=== PATIENT | male | born 1955 | race Caucasian/White ===

== ENCOUNTER 2020-01-03 11:51 | Outpatient (CLI) | payer BC, SELFPAY ==
--- NOTE | ~2020-01-03 | XR_ITS ---
EXAMINATION: XR chest 2V DATE: 01/03/2020 12:20 INDICATION: Shortness of breath. TECHNIQUE: Frontal and lateral views of the chest were obtained. COMPARISON: Chest 2 views 08/12/2018, CT abdomen and pelvis 08/16/2018 FINDINGS: The chest demonstrates clear lungs without pneumonia, pleural effusion, or pneumothorax. Th e heart size is normal. There is a suture anchor in right humeral head. IMPRESSION: 1. No acute cardiopulmonary disease. Reviewed, dictated and finalized at location A.
[2020-01-03 12:35] LABS: Alanine Aminotransferase 42 U/L (4-50); Albumin Level 4.4 g/dL (3.5-5.1); Alkaline Phosphatase 145 U/L (38-126); Anion Gap 9 mmol/L (8-16); Aspartate Amino Transferase 30 U/L (17-59); Bilirubin,Total 0.4 mg/dL (0.2-1.3); Blood Urea Nitrogen 12 mg/dL (9-20); Calcium 9.3 mg/dL (8.4-10.2); Carbon Dioxide 29 mmol/L (22-30); Chloride 104 mmol/L (98-107); Estimated Glomerular Filt Rate > 60; Glucose 95 mg/dL (75-110); Potassium 4.3 mmol/L (3.4-5.0); Sodium 142 mmol/L (137-145)
== END 2020-01-03 11:52 | disposition home or self-care (01) ==
PROVIDERS: PCP Internal Medicine; Visit Provider Internal Medicine
DX: R00.2 Palpitations (principal); R06.02 Shortness of breath
CPT/HCPCS: 36415; 71046; 80053; 84443

== ENCOUNTER 2020-01-12 15:25 | Outpatient (CLI) | payer BC, SELFPAY ==
--- NOTE | ~2020-01-12 | MR_ITS ---
EXAMINATION: MR brain/brain stem wo/w con EXAM DATE: 01/12/2020 16:26 INDICATION: Several lower episode of visual loss. TECHNIQUE: Magnetic resonance imaging (MRI) of the brain/brain stem obtained without contrast. Sagit gallo T1, axial diffusion, gradient echo (T2*), T1, T2, FLAIR sequences obtained. Patient was then inj ected with 20 cc intravenous Multihance contrast. Axial and coronal postcontrast T1 weighted sequence s obtained. There is no prior study for comparison. FINDINGS: There are no areas of restricted diffusion to suggest acute infarction. There is no acute hemorrhage seen on the T2*, a hemosiderin sensitive sequence. No intraparenchymal brain mass. The ve ntricles are normal in size. There are no extra-axial collections. Flow voids are seen in the cereb ral arteries on the T2-weighted sequences consistent with their expected patency. The orbits are unr emarkable. Soft tissue is unremarkable. There are no areas of abnormal enhancement on the postcont rast images. IMPRESSION: 1. Unremarkable brain MRI examination. Reviewed, dictated and finalized at location A.
== END 2020-01-12 15:26 | disposition home or self-care (01) ==
PROVIDERS: PCP Internal Medicine; Visit Provider Internal Medicine
DX: H54.7 Unspecified visual loss (principal)
CPT/HCPCS: 70553; A9577

== ENCOUNTER 2020-01-22 12:40 | Outpatient (CLI) | payer BC, SELFPAY ==
--- NOTE | 2020-01-22 12:45 | ECHO_ITS ---
Patient Info Name: Basilio Jaimse Age: 64 years : 1955 Gender: Male Ht: 74 in Wt: 225 lbs BSA: 2.33 m2 HR: 70 bpm BP: 141 / 87 mmHg Heart Rhythm: Sinus Rhythm Technical Quality: Good Exam Date: 01/22/2020 1:15 PM Exam Location: [facility] Pulmonary Patient Status: Outpatient Admit Date: 01/22/2020 Staff Ordering Physician: Alli Bae DO Air Turning Machine Feeder: Solomon Veliz RDCS Attending Provider: Alli Bae DO Referring Physician: Kathia CORDERO; Exam Type: CA echo doppler color flow Study Info Indications R00.2 - Palpitations Complete two-dimensional, color flow and Doppler transthoracic echocardiogram is performed. Strain analysis performed. History/Risk Factors Palpitations. Summary 1. Complete two-dimensional, color flow and Doppler transthoracic echocardiogram is performed. 2. Left ventricular chamber dimension is normal. 3. Left ventricular systolic function is normal, estimated at 60-65%. 4. The left ventricular diastolic function is grade I diastolic dysfunction. 5. E/e' 8 is minimally elevated. 6. Global longitudinal strain is mildly abnormal at -16.6%. Left Ventricle E/e' 8 is minimally elevated. Global longitudinal strain is mildly abnormal at -16.6%. Left ventricular chamber dimension is normal. Left ventricular systolic function is normal, estimated at 60-65%. The left ventricular diastolic function is grade I diastolic dysfunction. Right Ventricle Right ventricular chamber dimension is normal. Right ventricular systolic function is normal. Left Atria Left atrial chamber dimension is normal. Right Atria Right atrial chamber dimension is normal. Aortic Valve The aortic valve is trileaflet. There is no aortic valve stenosis. There is no aortic valve regurgitation. Pulmonic Valve There is no pulmonic regurgitation. Mitral Valve There is no mitral valve stenosis. There is no mitral valve regurgitation. Tricuspid Valve There is no tricuspid valve regurgitation. Pericardium/Pleural There is no pericardial effusion. Inferior Vena Cava Normal inferior vena cava with >50% collapse upon inspiration consistent with normal right atrial pressure, 5 mmHg. Aorta The aortic root size at the sinus of Valsalva is normal. Left Ventricular Outflow Tract Name Value Normal LVOT 2D LVOT Diameter 2.0 cm LVOT Doppler LVOT Peak Gradient 4 mmHg LVOT Mean Gradient 2 mmHg LVOT VTI 20 cm LVOT VTI/AV VTI Ratio 0.8 LVOT Stroke Volume 62 ml LVOT CO 4.5 l/min LVOT CI 1.9 l/min/m2 Mitral Valve Name Value Normal MV Doppler MV Decel [place] 312 cm/s2 MV PHT
--- NOTE | 2020-01-25 12:38 | WPDHOLTEREM ---
Holter/Event Monitor Holter/Event Monitor Date of procedure: 01/22/20 Procedure Type: 48 hour holter monitor Indications: Palpitations Conclusion: 1. 48 hour holter monitor on 01/22/20. 2. Underlying rhythm is sinus rhythm. HR range 52-130 bpm; average HR 75 bpm. 3. There are 31 premature supraventricular complexes and 6 supraventricular couplets. No supraventricular tachycardia. 4. No premature ventricular complexes. No ventricular tachycardia. 5. No sinoatrial or atrioventricular blocks. No significant pauses greater than 2 seconds. 6. No symptoms available for correlation.
== END 2020-01-22 12:41 | disposition home or self-care (01) ==
LOC: ANHCARD 12:41
PROVIDERS: PCP Internal Medicine; Visit Provider Internal Medicine
DX: R00.2 Palpitations (principal)
CPT/HCPCS: 93225; 93226; 93306

== ENCOUNTER → 2021-04-18 11:48 | Outpatient (CLI) | payer OTHER, SELFPAY ==
--- NOTE | ~2021-04-18 | XR_ITS ---
EXAMINATION: XR knee LT 3V DATE: 04/18/2021 12:08 INDICATION: Left knee pain. TECHNIQUE: 3 views of left knee including standing views were obtained. COMPARISON: None. FINDINGS: Bone alignment is normal. No fracture. Joint spaces are well maintained. There is no knee j oint effusion. IMPRESSION: 1. Normal left knee. Reviewed, dictated and finalized at location B. POLLUTION INSPECTOR IMPRESSION: 1. Normal left knee.
== END ==
PROVIDERS: PCP Internal Medicine; Visit Provider Nurse Practitioner
DX: M25.562 Pain in left knee (principal)
CPT/HCPCS: 73562

== ENCOUNTER 2021-06-16 09:44 | Outpatient (CLI) | payer OTHER, SELFPAY ==
--- NOTE | ~2021-06-16 | NM_ITS ---
EXAMINATION: NM stress w perf spect multi DATE: 06/16/2021 12:29 INDICATION: Abnormal electrocardiogram. Primary hypertension. TECHNIQUE: Rest images were obtained following intravenous administration of 9 mCi Tc99m tetrofosmin (Myoview). The patient performed an exercise activity. At peak exercise, 26.7 mCi Tc99m tetrofosmin ( Myoview) was administered intravenously, and stress images were obtained. Data was reconstructed into short axis and horizontal and vertical long axis SPECT images. Gated SPECT images were also obtained . COMPARISON: None. FINDINGS: There is no definite reversible or fixed perfusion abnormality to suggest ischemia or infar ction. There is no segmental wall motion abnormality. Left ventricular ejection fraction measures 6 7%. IMPRESSION: 1. No definite ischemia or infarct. 2. Normal left ventricular ejection fraction measuring 67%. Reviewed, dictated and finalized at location A.
--- NOTE | 2021-06-16 10:15 | EST_ITS ---
Patient Info Name: Basilio Jaimes Age: 66 years : 1955 Gender: Male Ht: 74 in Wt: 220 lbs BSA: 2.30 m2 Exam Date: 06/16/2021 11:27 AM Exam Location: [facility] Stress Patient Status: Outpatient Admit Date: 06/16/2021 Staff Ordering Physician: Alli Bae DO Attending Provider: Alli Bae DO Exercise Technologist: Brandon Galarza RDCS, RT Exercise Physician: Jose Savage DO Exam Type: CA stress test treadmill w NM Study Info A nuclear stress test was performed. Summary 1. 1. Negative Artemio exercise stress test for ischemic ST changes by ECG criteria. 2. 2. Reduced functional capacity, achieving 7 METs of workload. 3. 3. Baseline hypertension. 4. 4. Appropriate HR response to exercise. 5. 5. Appropriate HR recovery at 1 minute post exercise. 6. 6. Nuclear scan to follow and will be reported separately. Please correlate with it. 7. 7. Patient informed of the above results. Protocol: Artemio Stress ECG Details Stage: REST Duration (min): 1 min : 1 sec Speed (mph): 0.0 Grade (%): 0 HR (bpm): 74 SBP (mmHg): 141 DBP (mmHg): 77 METS: --- Stage: REST Duration (min): 5 min : 19 sec Speed (mph): 0.0 Grade (%): 0 HR (bpm): 86 SBP (mmHg): 141 DBP (mmHg): 77 METS: --- Stage: STAGE 1 Duration (min): 1 min : 0 sec Speed (mph): 1.7 Grade (%): 10 HR (bpm): 110 SBP (mmHg): 141 DBP (mmHg): 77 METS: --- Stage: STAGE 1 Duration (min): 2 min : 0 sec Speed (mph): 1.7 Grade (%): 10 HR (bpm): 121 SBP (mmHg): 141 DBP (mmHg): 77 METS: --- Stage: STAGE 1 Duration (min): 3 min : 0 sec Speed (mph): 1.7 Grade (%): 10 HR (bpm): 126 SBP (mmHg): 171 DBP (mmHg): 70 METS: --- Stage: STAGE 2 Duration (min): 1 min : 0 sec Speed (mph): 2.5 Grade (%): 12 HR (bpm): 132 SBP (mmHg): 171 DBP (mmHg): 70 METS: --- Stage: STAGE 2 Duration (min): 2 min : 0 sec Speed (mph): 2.5 Grade (%): 12 HR (bpm): 140 SBP (mmHg): 176 DBP (mmHg): 65 METS: --- Stage: STAGE 2 Duration (min): 2 min : 59 sec Speed (mph): 3.4 Grade (%): 14 HR (bpm): 143 SBP (mmHg): 176 DBP (mmHg): 65 METS: --- Stage: RECOVERY Duration (min): 1 min : 0 sec Speed (mph): 0.0 Grade (%): 0 HR (bpm): 127 SBP (mmHg): 164 DBP (mmHg): 64 METS: --- Stage: RECOVERY Duration (min): 2 min : 0 sec Speed (mph): 0.0 Grade (%): 0 HR (bpm): 111 SBP (mmHg): 179 DBP (mmHg): 54 METS: --- Stage: RECOVERY Duration (min): 3 min : 0 sec Speed (mph): 0.0 Grade (%): 0 HR (bpm): 100 SBP (mmHg): 142 DBP (mmHg): 66 METS: --- Stage: RECOVERY Duration (min): 3 min : 13 sec Speed (mph): 0.0 Grade (%): 0 HR (bpm): 100 SBP (mmHg): 142 DBP (mmHg): 66 METS: --- Rest HR: 86 bpm Peak HR: 144 bpm Rest Sys BP: 141 mmHg Pea
== END 2021-06-16 09:45 | disposition home or self-care (01) ==
PROVIDERS: PCP Internal Medicine; Visit Provider Internal Medicine
DX: R06.00 Dyspnea, unspecified (principal); I10 Essential (primary) hypertension; Z82.49 Family history of ischemic heart disease and other diseases of the circulatory system; Z51.81 Encounter for therapeutic drug level monitoring; Z79.899 Other long term (current) drug therapy; I45.10 Unspecified right bundle-branch block
CPT/HCPCS: 78452; 93017; A9502

== ENCOUNTER → 2021-07-03 06:59 | Outpatient (CLI) | payer OTHER, SELFPAY ==
--- NOTE | ~2021-07-03 | MR_ITS ---
EXAMINATION: MR knee LT wo con DATE: 07/03/2021 07:27 INDICATION: Left knee pain TECHNIQUE: Magnetic resonance imaging (MRI) of the left knee was performed without intravenous contra st. Sequences included coronal PD-weighted FSE, coronal PD-weighted FS FSE, sagittal T2-weighted FSE , sagittal PD-weighted FS FSE and axial PD weighted fat saturated FSE. COMPARISON: Left knee radiographs dated 04/18/2021 FINDINGS: Medial compartment: There is distortion of the morphology of the body of the medial meniscus related to a tear of indeter minate morphology with displacement of a small meniscal flap into the inferior gutter below the level of the tibial plateau. There is an additional small horizontal tear plane at the inner third of the posterior horn which extends to the superior articular surface near the free edge. Partial-thickness chondral ulceration along the lateral margin of the anterior to central weightbearing medial femoral condyle with small region of cortical irregularity with minimal focal subarticular edema-like marrow signal change along the lateral aspect of the central weightbearing medial femoral condyle. Partial-t hickness cartilage loss with smooth chondral surface and mild underlying marrow edema-like signal naresh nge at the posterolateral aspect of the lateral tibial plateau. Lateral compartment: Tiny radial tear versus focal fraying along the inner free edge at the posterior horn of the lateral meniscus. Articular cartilage is normal. Patellofemoral compartment: Articular cartilage is normal. Ligaments and tendons: Anterior and posterior cruciate ligaments are normal. The medial collateral ligament and fibular jacey ateral ligament complex are normal. The extensor mechanism is normal. The visualized medial and later al hamstring tendons as well as the iliotibial band are normal. Fluid: Minimal joint effusion at the suprapatellar pouch. No loose osteochondral bodies identified. Small Ba ker's cyst. Osseous/other: A couple small low signal intensity sclerotic bone is at the medial and lateral femoral condyles. No fracture or pathologic marrow replacing process. Edema at the superficial suprapatellar fat pad which can be seen with fat pad impingement syndrome. IMPRESSION: 1. Medial meniscal tear with displacement of a small meniscal flap at the inferior periphery of the m eniscal body. 2. Tiny radial tear versus fraying along the free edge of the posterior horn of the lateral meniscus. 3. 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 4. Edema in the superficial suprapatellar fat pad consistent with fat pad impingement syndrome. 4. Small Aldridge's cyst. Reviewed, dictated and finalized at location A. IMPRESSION: 1. Medial meniscal tear with displacement of a small meniscal flap at the infer ior periphery of the meniscal body. 2. Tiny radial tear versus fraying along the free edge of the posterior horn of the lateral meniscus. 3. 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 4. Edema in the superficial suprapatellar fat pad consistent with fat pad impin gement syndrome. 4. Small Aldridge's cyst.
== END ==
PROVIDERS: PCP Internal Medicine; Visit Provider Orthopaedic Surgery
DX: M25.562 Pain in left knee (principal); G89.29 Other chronic pain; S83.242A Other tear of medial meniscus, current injury, left knee, initial encounter; M17.12 Unilateral primary osteoarthritis, left knee; M79.89 Other specified soft tissue disorders; M71.22 Synovial cyst of popliteal space [Baker], left knee
CPT/HCPCS: 73721

== ENCOUNTER 2021-08-04 01:59 | Day surgery (SDC) | payer OTHER, SELFPAY ==
[2021-07-24 10:26] VITALS: BMI 29.0
--- NOTE | 2021-07-24 10:33 | PC.NURSE ---
Report to the Outpatient Waiting Room, entrance under the green pavilion located off [facility], at time 1200 on date 08/04/21. OR Time: 1400. - You and your visitor will be asked a series of questions to screen for COVID 19 for your protection. - A mask is required within the hospital. One visitor will be allowed to accompany the patient into the hospital. Patients visitor will be instructed to remain with patient at all times or leave the building. We will allow the visitor to come back to the postoperative area when patient is ready. Preoperative COVID Testing Requirements: No COVID Test needed if: (proof is required; if not received patient will have Rapid Test prior to entry) - Patient has received COVID Vaccine at least 14 days prior to procedure date or - Patient has positive COVID test result within last 90 days of surgery date. COVID Test needed if above criteria is not met Patients may have clear liquids (water, carbonated beverages, clear teas, apple juice) until 3 hours prior to surgery with a maximum of 20 ounces. - No food from midnight until time of surgery Take the following medications with a SIP of water the morning of surgery: BUSPIRONE, LAMOTRIGINE, MIRTAZAPINE, RISPERIDONE Medications to discontinue per physician: VITAMINS Date to take last dose: 07/31/21 Please no make-up, nail sami, hairspray, perfume, deodorant, or body powder the day of surgery. No jewelry (including any body piercings) or valuables the day of surgery, leave them at home. Please take a shower or bath the night before, or the morning of, surgery with an antibacterial soap. Wear comfortable, loose fitting clothing. - Jewelry must be removed prior to entering the operating room. Rings and piercings that are not removed may be cut off. - The hospital will not accept responsibility for valuables. - Please leave all valuables, including medications, at home the day of surgery. If you are going home after surgery, a licensed taxi truck driver must drive you home. - NO public transportation without another adult. - We recommend that an adult stay with you for 24 hours following discharge. - We also recommend that you do not drive, make important decision, drink alcoholic beverages, or take any drugs that were not prescribed by your health care provider for at least 24 hours after your discharge time. Follow any additional instructions given to you from your surgeon. Telephone instructions given to LUIZA GRIFFITHS and asked if any additional questions and then verbalized understanding. Patient advised to call surgeon office or pre surgery nurse liaison [phone] if any additional questions.
--- NOTE | 2021-08-03 08:19 | WPDANESEPPF ---
Anes - Initial Pre Proc Eval Procedure: Operation Date: 08/04/21 10:30 Proposed Procedures p Left Knee Arthroscopy with Meniscectomy - Phil Nash MD Date/Time: 08/03/21 08:19 Surgeon: Phil Nash MD Pre Op Diagnosis: left medial meniscal tear Patient Data Age: 66 Gender: M Height: 1.85 m Weight: 99.79 kg Allergies Allergy/AdvReac Type Severity Reaction Status Date / Time No Known Allergies Allergy Unknown Verified 08/04/21 08:47 Home Medications Medication Instructions Recorded Confirmed Type methylphenidate HCl 20 mg tablet 20 mg PO DAILY 05/18/19 08/04/21 History mirtazapine 30 mg tablet 30 mg PO DAILY 05/18/19 08/04/21 History buspirone 7.5 mg tablet 7.5 mg PO BID 01/03/20 08/04/21 History lamotrigine 200 mg tablet 200 mg PO BID 01/03/20 08/04/21 History risperidone 2 mg tablet 2 mg PO DAILY 01/03/20 08/04/21 History multivit with minerals-folic 1 tablet PO DAILY 04/18/21 08/04/21 History acid-lycopene 0.4 mg-600 mcg tablet atorvastatin 20 mg tablet 20 mg PO DAILY #30 tablet 05/26/21 08/04/21 Rx Patient hx anesthesia problems: none Family hx anesthesia problems: none Results Review: All pre-operative results and documents have been reviewed as part of the pre-operative evaluation. [facility] Past Medical History Medical History (Updated 08/03/21 @ 08:20 by Kunal Welch MD) Chronic kidney disease, stage III (moderate) Dyspnea Essential hypertension FLAKITO (obstructive sleep apnea) Overweight (BMI 25.0-29.9) Pure hypercholesterolemia Tear of medial meniscus of left knee Surgical History Surgical History H/O repair of rotator cuff right shoulder scope - Mary History of back surgery Family History Family History Father Depression Family history of alcoholism Family history of heart disease in male family member before age 55, Onset Age: 60 Patient's father is Family history of cardiovascular disease, Onset Age: 60 Sibling Depression Asthma Family history of rheumatoid arthritis Patient's sister is in good health Patient's sister is Mother Family history of malignant neoplasm of breast in first degree relative Family history of heart disease in male family member before age 55 Family history of malignant neoplasm of breast Social History Social History Smoking status: Never smoker Second hand tobacco smoke exposure: No Alcohol intake: never Substance use: never Substance use type: does not use Living arrangements: with family Gender identity (if verbalized by the patient): Male Spiritual care concerns: No Anes - Eval Final PreProcedure Day of Procedure 08/03/21 08:19 Patient weight: overweight Heart: regular rate and rhythm Lungs: clear to auscultation and normal air movement Airway: Mallampati scale class II Neurological: alert and oriented Last oral intake: >/= 8 hours ASA classification: III Emergent: no Anesthetic plan: proceed Anesthesia type and monitoring: general LMA Results Review: All pre-operative results and documents have been reviewed as part of the pre-operative evaluation. Informed Consent: The patient's anesthetic plan and its attendant risks and benefits were discussed with the patient/family/POA. Questions were solicited and answers provided to the satisfaction of the patient/family/POA.
[2021-08-04] VITALS (8 sets, daily range): BP systolic 133–154; BP diastolic 82–91; PULSE 72–87; RESP 12–17; TEMP 36.3; O2SAT 97–100
[2021-08-04] MEDS: LACTATED RINGERS 1,000 ML 30 ML IV CONT (09:35)
[2021-08-04] MEDS: KETOROLAC 15 MG/ML VIAL (*BKC) IV PUSH (09:36)
[2021-08-04] MEDS: ACETAMINOPHEN 500 MG TABLET 1000 MG PO (09:36)
--- NOTE | 2021-08-04 10:04 | WPDHPUPDATE1 ---
History and Physical Update Update Date/Time: 08/04/21 10:04 History and Physical has been reviewed, including an updated exam of the patient. There are NO changes in the patient's condition. Risks, benefits, and alternatives have been discussed and questions answered. Patient agrees to proceed with procedure.
[2021-08-04] MEDS: ceFAZolin 2 GM/D5W 50 ML 2 GM/50 ML BAG IVPB (10:25)
--- NOTE | 2021-08-04 11:29 | W.PM.PROC2 ---
Procedure Note - Detailed Date of Procedure 08/04/21 Pre-op Diagnosis left medial meniscal tear Post-op Diagnosis Same Procedure Performed Left knee arthroscopy, partial medial meniscectomy Surgeon Phil Nash MD Anesthesia General Description of Procedure The patient was identified and proper site identified and he was taken to the operating room, transferred to the OR table placing her supine taking care to pad the torso and extremities. After general anesthetic induction and intubation, a nonsterile tourniquet was placed high on the left thigh but was not inflated. The left lower extremity was positioned, prepped and draped in usual sterile fashion. 10 cc of 1% lidocaine was injected into the subcutaneous tissue in the area of the portals at start of the procedure, and an additional 10 at the end. The portals were established and the arthroscopy was carried out. Articular cartilage in the anterior compartment showed minimal fraying and fibrillation. Laterally the articular cartilage was in good shape. Minimal fraying at the apex of the lateral meniscus. Anterior posterior cruciate ligaments were in continuity. Pouch and gutters were sensory clear. Medially there was complex tearing of the medial meniscus from the posterior horn in the midbody as well as areas of grade two and three cartilage deterioration the posterior portion of the medial femoral condyle. The loose fibrillated cartilage of the joint surface was gently debrided with the shaver. Meniscus was contoured back to a stable rim with basket forceps and a shaver. Arthrocare Wand was used for hemostasis. The knee was flushed with a copious amount of arthroscopic fluid and equipment was removed. Portals were closed with three O nylon suture and a sterile dressing was applied. He tolerated the procedure well, was awakened, extubated and taken to recovery area in stable condition. There were no known intraoperative complications. Estimated blood loss was negligible; he received perioperative antibiotics. Estimated Blood Loss 5 Tourniquet Time 0 Drains No Packing No Pathology None sent Complications No immediate complications Condition Stable Disposition PACU
== END 2021-08-04 13:00 | disposition home or self-care (01) ==
PROVIDERS: PCP Internal Medicine; Visit Provider Orthopaedic Surgery
PROC: (CPT 29870; principal; 2021-08-04 10:30)
DX: M23.222 Derangement of posterior horn of medial meniscus due to old tear or injury, left knee (principal); I12.9 Hypertensive chronic kidney disease with stage 1 through stage 4 chronic kidney disease, or unspecified chronic kidney disease; N18.30 Chronic kidney disease, stage 3 unspecified; G47.33 Obstructive sleep apnea (adult) (pediatric); E78.00 Pure hypercholesterolemia, unspecified
CPT/HCPCS: 29881; A9270; J0690; J1100; J1885; J2250; J2370; J2405; J2704; J3010; J7120

== ENCOUNTER 2021-08-21 08:00 | Outpatient (RCR) | payer OTHER, SELFPAY ==
--- NOTE | 2021-07-21 14:59 | PTOPEVAL ---
Thank you for referring Basilio Jaimes to [facility].? The patient is scheduled to be seen for therapy? 1 visit next week for shoulder, then initiate therapy for knee on 08/06, then schedule 1 visit every other week for 4 additional visits due to his copay. Please review, sign, date and return this plan of care CHAN. I agree with and certify that the following plan of care is medically necessary. Referring Physician Date Attending Provider: Phil Nash MD Referring Provider: Phil Nash MD Diagnosis gaetano shoulder pain Onset 6 month Additional Evaluation Detail x-ray: spurring of the greater tuberosity and lateral margin of the acromion on the right but well-maintained acromial space. Minimal glenohumeral degenerative changes noted Subjective Information He has increased pain with Query Text:As Reported By Patient/ shoulder abd to 90 dg with Family forearm in pronated position. Increased pain with reaching motion. Denies pain at night. Denies any limitations with ADL's, carrying objects in front. 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 Recreational act: Gardening, walking. Pain Assessment Left Shoulder(s) Reported Pain Level 0 Pain Description Aching Pain Frequency Chronic Greatest Pain Intensity 8 Right Shoulder(s) Reported Pain Level 0 Pain Frequency Chronic Lowest Pain Intensity 0 Greatest Pain Intensity 1 Upper Extremity Range of Motion Scapular/ Shoulder Range of Motion Right Shoulder Flexion - Active 152 Shoulder Extension - Active 40 Shoulder Abduction - Active 148 Shoulder Medial Rotation - Active 65 Shoulder Medial Rotation - Active T9:Reach Behind the Back Shoulder Lateral Rotation - Active 70 Shoulder Lateral Rotation - Active C6Reach Behind the Head Left Shoulder Flexion - Active 150 Shoulder Extension - Active 35 Shoulder Abduction - Active 155 Shoulder Medial Rotation - Active 75 Shoulder Medial Rotation - Active T9 reach Behind the Back Shoulder Lateral Rotation - Active 65 Shoulder Lateral Rotation - Active C6Reach Behind the Head Upper Extremity Muscle Strength Testing General Upper Extremity Strength Gross Upper Extremity Strength Comments 5/5 gaetano shoulder all motions scapular stability with middle and lower trap: 3-/5 Muscle Length Testing Latissmus Dorsi Muscle Length (R) Severe Tightness,(L)
--- NOTE | 2021-08-06 08:20 | PTOPEVAL ---
PHYSICAL THERAPY EVALUATION S/P LEFT MENISCECTOMY Thank you for referring Basilio Jaimes to [facility].? Patient was provided with HEP for left knee. Will follow up if needed in 2 weeks. Please review, sign, date and return this plan of care CHAN. I agree with and certify that the following plan of care is medically necessary. Referring Physician Date Attending Provider: Phil Nash MD Evaluation Diagnosis left medial menisectomy Onset 6 month Subjective Information for 6 months has he has been Query Text:As Reported By Patient/ having difficulty with the Family left knee. He had medial menisectomy performed on 08/04 and is using crutches with 4 point gait pattern. He is WBAT . Follows up with MD on 08/18. Self Report Pain Assessment Left Knee(s) Reported Pain Level 4 Pain Description Aching Pain Frequency Acute Lowest Pain Intensity 3 Greatest Pain Intensity 7 Pain Aggravating Factors Bending,Walking,Weight Bearing /Standing Lower Extremity Range of Motion Knee Range of Motion Left Knee Flexion Range of Motion - Active 18 Knee Extension Range of Motion - Active 2 Query Text: Knee Extension Range of Motion - Passive 0 Lower Extremity Muscle Strength Testing Hip Strength Left Hip Flexion Strength 5 Normal Hip Extension Strength 4 Good Hip Abduction Strength 4+ Good + Knee Strength Left Knee Flexion Strength 5 Normal Knee Extension Strength 4+ Good + Knee Strength Comments moderate quad set and understanding of how to increase the activation Palpation Assessment Palpation Palpation clean appearing, no drainage at incision sites; Gait Assessment Gait Assessment Ambulation Assistive Devices None Weight Bearing Status - Left As Tolerated Weight Bearing Status - Right Full Maintains Weight Bearing Status Yes Ambulation Distance 150 Query Text:(Feet) Ambulation Ability Independent Additional Ambulation Comments started with 2 crutches and LLE WBAT and progressed to 1 crutch and then ambulated without crutches independently and very well Stair Climbing Assessment Stair Climbing Assessment Stair Climbing Assistive Devices Railings Weight Bearing Status - Left As Tolerated Weight Bearing Status - Right Full Technique Alternating Steps Stair Climbing Direction
--- NOTE | 2021-09-03 11:38 | PCPTNOTE ---
PHYSICAL THERAPY DISCHARGE NOTE Attending Provider: Phil Nash MD Patient:Basilio Jaimes Date of :1955 Basilio was evaluated 08/06/21 following a menisectomy performed on 08/04/21. At time of his evaluation demonstrated good ROM and good muscle activation and strength. He followed up for one appointment 2 weeks later and is now doing well. He no longer requires skilled physical therapy and will be discharged. Thank you for referring this patient to [facility]. Please review, sign, date and return this discharge summary CHAN. I have been updated about the patient's current status and I agree with discharge from the above service at this time. Referring Physician Date
== END 2021-09-04 10:08 | disposition home or self-care (01) ==
LOC: ANHPT 08:00
PROVIDERS: PCP Internal Medicine; Referring Provider Orthopaedic Surgery; Visit Provider Orthopaedic Surgery
DX: M75.81 Other shoulder lesions, right shoulder (principal); M75.82 Other shoulder lesions, left shoulder; S83.232D Complex tear of medial meniscus, current injury, left knee, subsequent encounter
CPT/HCPCS: 97014; 97112; 97161; G0283

== ENCOUNTER 2022-03-05 11:45 | Outpatient (CLI) | payer OTHER, SELFPAY ==
--- NOTE | ~2022-03-05 | MM_ITS ---
EXAMINATION: MM diagnostic robbie RT w ady HISTORY: Mastodynia of the right breast TECHNIQUE: Craniocaudal, and mediolateral oblique 3-D tomosynthesis images of the right breast were p erformed and synthetic 2-D images were generated. Mediolateral oblique view of the left breast is obt ained for comparison. CAD analysis was submitted and interpreted. COMPARISON: None BREAST PARENCHYMAL COMPOSITION: The breasts are almost entirely fatty. FINDINGS: There is flame-shaped focal asymmetry in the subareolar aspect of the right breast. No susp icious mass, calcification, or architectural distortion are identified. IMPRESSION: 1. Findings consistent with right breast gynecomastia. Clinical follow-up is recommended. BI-RADS Category 2: Benign finding(s). Reviewed, dictated and finalized at location A. T DESK ADMINISTRATOR IMPRESSION: 1. Findings consistent with right breast gynecomastia. Clinical follow-up is re commended. BI-RADS Category 2: Benign finding(s).
== END 2022-03-05 11:46 | disposition home or self-care (01) ==
PROVIDERS: PCP Internal Medicine; Visit Provider Internal Medicine
DX: N64.4 Mastodynia (principal)
CPT/HCPCS: 77061; 77065; G0279

== ENCOUNTER 2022-10-30 15:04 | Emergency (ER) | payer OTHER, SELFPAY ==
--- NOTE | ~2022-10-30 | XR_ITS ---
XR chest 1V portable 10/30/2022 16:20 Indication: Shaking. Procedure: AP portable chest Comparison: 01/03/2020 Findings: Borderline heart size. No focal air space disease, pulmonary edema, pleural effusion or izzy pected pneumothorax. Shallow inspiration. Impression: 1: No acute cardiopulmonary disease. Reviewed, dictated and finalized at location A. Impression: 1: No acute cardiopulmonary disease.
[2022-10-30 15:24] VITALS: BP 152/74; PULSE 78; RESP 16; TEMP 36.6; O2SAT 98
--- NOTE | 2022-10-30 15:57 | ECG_ITS ---
Measurements Intervals [place] Rate: 64 P: 38 ND: 171 QRS: 11 QRSD: 105 T: 20 QT: 412 QTc: 428 Interpretive Statements SINUS RHYTHM INCOMPLETE RIGHT BUNDLE BRANCH BLOCK DELAYED PRECORDIAL R/S TRANSITION BASELINE ARTIFACT- I, II, III, AVR, AVL, AVF BORDERLINE ECG COMPARED TO ECG 08/12/2018 16:14:31 NO SIGNIFICANT CHANGES Electronically Signed On 10-30-2022 20:11:23 CDT by Jose Savage D.O.
[2022-10-30 15:58] VITALS: BP 160/67; PULSE 67; RESP 14; O2SAT 100
--- NOTE | 2022-10-30 15:59 | ED.ANXIETY ---
HPI - Anxiety General Chief Complaint: Anxiety Stated Complaint: SOB, weakness Time Seen by Provider: 10/30/22 15:50 Source: patient and family Mode of arrival: EMS Limitations: no limitations History of Present Illness HPI narrative: 67 years old white male with psych history, anxiety and depression, lost his son 1 and half years ago, came by ambulance from home complaining of feeling anxious, flushed, shaking, hyperventilating. He denies any headache, chest pain, back pain or abdominal pain. He denies fever, chills, nausea, vomiting, biting his tongue or urinary incontinence. Related Data Home Medications Medication Instructions Recorded Confirmed methylphenidate HCl 20 mg tablet 20 mg PO DAILY 05/18/19 08/25/22 (Ritalin) buspirone 7.5 mg tablet 7.5 mg PO BID 01/03/20 08/25/22 lamotrigine 200 mg tablet 200 mg PO BID 01/03/20 08/25/22 multivit with minerals-folic 1 tablet PO DAILY 04/18/21 08/25/22 acid-lycopene 0.4 mg-600 mcg tablet (Men's Daily Multivitamin-Mineral) Allergies Allergy/AdvReac Type Severity Reaction Status Date / Time No Known Allergies Allergy Unknown Verified 10/30/22 16:17 Review of Systems Review of Systems: All systems reviewed & are unremarkable except as noted in HPI and below PMFSH Past Medical History Medical History Chronic kidney disease, stage III (moderate) COVID-19 Dyspnea Essential hypertension FLAKITO (obstructive sleep apnea) Overweight (BMI 25.0-29.9) Pure hypercholesterolemia Tear of medial meniscus of left knee Surgical History Surgical History H/O repair of rotator cuff right shoulder scope - Mary History of arthroscopy of left knee Partial medial meniscectomy August 04, 2021 History of back surgery Family History Family History Father Depression Family history of alcoholism Family history of heart disease in male family member before age 55, Onset Age: 60 Patient's father is Family history of cardiovascular disease, Onset Age: 60 Sibling Depression Asthma Family history of rheumatoid arthritis Patient's sister is in good health Patient's sister is Mother Family history of malignant neoplasm of breast in first degree relative Family history of heart disease in male family member before age 55 Family history of malignant neoplasm of breast Social History Social History Smoking status: Never smoker Second hand tobacco smoke exposure: No Alcohol intake: never Substance use: never Substance use type: does not use Lack of Transportation: No Lack of Food: Never True Current Housing: I Have Housing Concerned About Future Housing: No Difficulty Paying Gas/Electric Bills: No Difficulty Paying for Meds: No Currently Unemployed: No Education: Master's Degree or Higher Difficulty w/ Childcare or Family Care: No Living arrangements: with family Occupation/Education: retired Gender identity (if verbalized by the patient): Male Spiritual care concerns: No Exam Narrative: General appearance: Well-developed, well-nourished, hyperventilating, shaking all over Skin: Normal color Head: Normocephalic, nontraumatic Eyes: Clear conjunctiva ENT: Oropharynx normal, ears normal, nose normal Neck: Supple, nontender Chest and respiratory: Airway patent, no respiratory distress, no accessory muscle use Heart: Tachycardia Abdomen: Soft, nontender, no organomegaly, quiet bowel sounds Vascular: Normal peripheral pulses, normal capillary refill. Musculoskeletal: Normal range of motion, nontender back Neurologic: Alert and oriented ?3, JANITORIAL TECH is normal as tested, no gross motor deficit
[2022-10-30] MEDS: LORazepam INJ (*CRX) 2 MG/ML VIAL 1 MG IV PUSH (16:02)
[2022-10-30 16:21] LABS: Basophils Percent Auto 0.5 % (0.2-1.2); Eosinophils Percent Auto 0.6 % (0-4.4); Hematocrit 43.1 % (42.0-52.0); Hemoglobin 15.1 g/dL (14.0-18.0); Immature Granulocyte Absolute 0.02 K/mm3 (0.00-0.031); Immature Granulocyte Percent A 0.3 % (0-0.5); Lymphocytes Absolute Auto 1.11 K/mm3 (0.9-3.2); Lymphocytes Percent Auto 17.3 % (18.3-44.2); Mean Corpuscular Hemoglobin 30.3 pg (26-34); Mean Corpuscular Volume 86.4 fl (80-100); Monocytes Absolute Auto 0.5 K/mm3 (0.1-0.6); Monocytes Percent Auto 7.3 % (2.6-8.5); Neutrophils Absolute Auto 4.8 K/mm3 (1.3-6.7); Platelet Count Result 206 k/mm3 (150-375); Red Blood Count 4.99 M/mm3 (4.6-6.20); Red Cell Distribution Width 12.1 % (11.5-14.5); White Blood Count 6.4 K/mm3 (4.5-10.0)
[2022-10-30 16:22] LABS: Appearance Urine Clear (Clear); Bilirubin Urine Negative (Negative); Blood Urine Negative (Negative); Color Urine Yellow (Yellow); Glucose Urine UA Negative (Negative); Ketones Urine 2+ mg/dL (Negative); Leukocyte Esterase Ur Negative LEU/UL (Negative); Nitrate Urine Negative (Negative); Protein Urine Negative (Negative); Specific Grav Ur 1.005 (1.001-1.035); Urobilinogen Urine 0.2 mg/dL (<2.0); pH Urine 7.5 (5.0-9.0)
[2022-10-30 16:24] LABS: Add Urine Microscopic? NO
[2022-10-30 16:30] LABS: Alanine Aminotransferase 26 U/L (6-50); Albumin Level 4.5 g/dL (3.5-5.1); Alkaline Phosphatase 124 U/L (38-126); Anion Gap 15 mmol/L (8-16); Aspartate Amino Transferase 28 U/L (17-59); Blood Urea Nitrogen 10 mg/dL (9-20); Calcium 8.9 mg/dL (8.4-10.2); Carbon Dioxide 17 mmol/L (22-30); Chloride 99 mmol/L (98-107); Estimated CRCL calculation 62 ml/min; Estimated Glomerular Filt Rate > 60; Glucose 120 mg/dL (65-110); Potassium 3.7 mmol/L (3.4-5.0); Sodium 131 mmol/L (137-145)
[2022-10-30 16:31] LABS: Alveolar/Arterial O2 Gradient 51.9 mmHg; Base Excess ABG -2.1 mEq/l (+/-2.0); Fractional Inspired Oxygen 21 %; HCO3 ABG 18.5 mEq/l (22.0-26.0); Oxygen Content ABG 20.8 %vol (16.0-22.0); Oxygen Saturation ABG 95.9 % (95.0-100.0); Oxyhemoglobin 94.1 % THb (90.0-100.0); PO2 ABG 69.9 mmHg (80.0-100.0); PO2 FiO2 Ratio Arterial Blood 3.33 %; Total Hemoglobin 15.7 g/dL (12.0-18.0)
[2022-10-30 16:37] LABS: pH ABG 7.518 (7.350-7.450)
[2022-10-30 16:38] LABS: Device ROOM AIR; Modified Allen's Test Pass; PCO2 ABG 23.3 mmHg (35.0-45.0); Site Drawn RIGHT RADIAL
[2022-10-30 17:00] VITALS: BP 148/75; PULSE 65; RESP 18; O2SAT 96
[2022-10-30 18:07] VITALS: BP 131/73; PULSE 72; RESP 18; O2SAT 97
== END 2022-10-30 18:11 | disposition home or self-care (01) ==
PROVIDERS: Emergency Provider Emergency Medicine; PCP Family Medicine
DX: F45.8 Other somatoform disorders (principal); I12.9 Hypertensive chronic kidney disease with stage 1 through stage 4 chronic kidney disease, or unspecified chronic kidney disease; N18.30 Chronic kidney disease, stage 3 unspecified; G47.33 Obstructive sleep apnea (adult) (pediatric); E78.00 Pure hypercholesterolemia, unspecified; E66.3 Overweight; Z68.29 Body mass index [BMI] 29.0-29.9, adult; Z86.16 Personal history of COVID-19
CPT/HCPCS: 36415; 36600; 71045; 80053; 81003; 82805; 85025; 93005; 96374; 99284; J2060

== ENCOUNTER 2023-02-26 08:07 | Outpatient (CLI) | payer OTHER, SELFPAY ==
[2023-02-26 18:18] LABS: Alanine Aminotransferase 31 U/L (6-50); Albumin Level 4.1 g/dL (3.5-5.1); Alkaline Phosphatase 133 U/L (38-126); Anion Gap 11 mmol/L (8-16); Aspartate Amino Transferase 35 U/L (17-59); Bilirubin,Total 0.7 mg/dL (0.2-1.3); Blood Urea Nitrogen 11 mg/dL (9-20); Calcium 9.1 mg/dL (8.4-10.2); Carbon Dioxide 27 mmol/L (22-30); Chloride 100 mmol/L (98-107); Cholesterol 131 mg/dL (0-200); Estimated Glomerular Filt Rate > 60; Glucose 103 mg/dL (65-110); HDL Direct 62 mg/dL; Potassium 3.9 mmol/L (3.4-5.0); Sodium 138 mmol/L (137-145); Triglycerides 82 mg/dL (<150)
[2023-02-26 18:29] LABS: LDL Cholesterol Direct 52 mg/dL
[2023-02-26 18:55] LABS: Hemoglobin A1C 4.9 % (<5.7)
== END 2023-02-26 08:08 | disposition home or self-care (01) ==
PROVIDERS: PCP Nurse Practitioner; Visit Provider Nurse Practitioner
DX: E78.5 Hyperlipidemia, unspecified (principal); R73.01 Impaired fasting glucose
CPT/HCPCS: 36415; 80053; 80061; 83036

== ENCOUNTER 2023-04-15 15:46 | Outpatient (CLI) | payer OTHER, SELFPAY ==
--- NOTE | ~2023-04-15 | CT_ITS ---
EXAMINATION: CT brain wo con DATE: 04/15/2023 16:06 INDICATION: Severe vertigo and headache TECHNIQUE: Computed tomography (CT) of the head was performed without intravenous contrast. Sagittal and coronal reconstructions were performed. The mA was adjusted according to patient size. Iterative reconstruction technique was employed. The dose-length product was 681.00 mGy-cm. COMPARISON: Brain MR dated 01/22/2020 FINDINGS: No acute intracranial hemorrhage, acute infarction or abnormal extra axial fluid collection. Ventricl es are normal and symmetric. No mass/mass effect. The orbits, paranasal sinuses and mastoid air cells are normal. IMPRESSION: 1. Normal head CT. Reviewed, dictated and finalized at location A. STIE INSPECTOR IMPRESSION: 1. Normal head CT.
== END 2023-04-15 15:47 | disposition home or self-care (01) ==
LOC: ANHIMG 15:48
PROVIDERS: PCP Nurse Practitioner; Visit Provider Nurse Practitioner
DX: R51.9 Headache, unspecified (principal); R42 Dizziness and giddiness
CPT/HCPCS: 70450

== ENCOUNTER → 2023-04-21 07:27 | Outpatient (CLI) | payer OTHER, SELFPAY ==
--- NOTE | ~2023-04-21 | XR_ITS ---
XR lumbar spine 2-3V DATE: 04/21/2023 07:56 INDICATION: Back pain TECHNIQUE: AP, lateral, coned lateral lumbosacral views COMPARISON: 08/16/2018 CT lumbar spine FINDINGS: There is mild thoracolumbar levoscoliosis. There is multilevel degenerative disc disease, mild at L1 to, moderate at L2-3 and L3-4, moderately s evere at L4-5 and severe at L5-S1. There is associated mild retrolisthesis at L4-5. No fracture or bone destruction is detected. The lumbar pedicles are intact. The sacroiliac joints appear normal. IMPRESSION: Mild thoracolumbar levoscoliosis Multilevel degenerative disc disease, most severe at L5-S1 Reviewed, dictated and finalized at location B. ERTIES SUPERVISOR
== END ==
PROVIDERS: PCP Nurse Practitioner; Visit Provider Nurse Practitioner
DX: M41.85 Other forms of scoliosis, thoracolumbar region (principal); M51.37 Other intervertebral disc degeneration, lumbosacral region
CPT/HCPCS: 72100

== ENCOUNTER 2023-07-02 07:38 | Emergency (ER) | payer OTHER, SELFPAY ==
[2023-07-02] VITALS (8 sets, daily range): BP systolic 126–144; BP diastolic 66–87; PULSE 83–93; RESP 16–18; TEMP 36.7; O2SAT 95–99
--- NOTE | ~2023-07-02 | XR_ITS ---
XR chest 1V portable 07/02/2023 08:35 Indication: Weakness and chest pain. Palpitations. Procedure: AP portable chest Comparison: 10/30/2022 Findings: Heart size normal. No focal air space disease, pulmonary edema, pleural effusion or suspect ed pneumothorax. No acute osseous abnormality. Impression: 1: No acute cardiopulmonary disease. Reviewed, dictated and finalized at location B. Impression: 1: No acute cardiopulmonary disease.
--- NOTE | 2023-07-02 07:59 | ECG_ITS ---
Measurements Intervals [place] Rate: 82 P: 56 [place]: 170 QRS: 7 QRSD: 99 T: 7 QT: 379 QTc: 443 Interpretive Statements SINUS RHYTHM LOW QRS VOLTAGE IN PRECORDIAL LEADS INCOMPLETE RIGHT BUNDLE BRANCH BLOCK CONSIDER INFERIOR INFARCT, AGE INDETERMINATE BORDERLINE T WAVE ABNORMALITY- ANTERIOR LEADS BASELINE ARTIFACT- V4 ABNORMAL ECG COMPARED TO ECG 10/30/2022 16:06:46 NO SIGNIFICANT CHANGES Electronically Signed On 07-02-2023 8:31:00 CDT by Jose Savage D.O.
[2023-07-02 08:45] LABS: Basophils Percent Auto 0.6 % (0.2-1.2); Eosinophils Absolute Auto 0.2 K/mm3 (0-0.3); Eosinophils Percent Auto 5.9 % (0-4.4); Hematocrit 40.9 % (42.0-52.0); Hemoglobin 14.1 g/dL (14.0-18.0); Immature Granulocyte Absolute 0.01 K/mm3 (0.00-0.031); Immature Granulocyte Percent A 0.3 % (0-0.5); Lymphocytes Absolute Auto 0.89 K/mm3 (0.9-3.2); Lymphocytes Percent Auto 26.1 % (18.3-44.2); Mean Corpuscular HGB Conc 34.5 g/dl (32-36); Mean Corpuscular Hemoglobin 30.2 pg (26-34); Mean Corpuscular Volume 87.6 fl (80-100); Mean Platelet Volume 10.1 fl (7.4-10.4); Monocytes Absolute Auto 0.4 K/mm3 (0.1-0.6); Monocytes Percent Auto 11.1 % (2.6-8.5); Neutrophils Absolute Auto 1.9 K/mm3 (1.3-6.7); Platelet Count Result 166 k/mm3 (150-375); Red Blood Count 4.67 M/mm3 (4.6-6.20); Red Cell Distribution Width 12.6 % (11.5-14.5); White Blood Count 3.4 K/mm3 (4.5-10.0)
[2023-07-02 09:01] LABS: Alanine Aminotransferase 35 U/L (6-50); Albumin Level 3.9 g/dL (3.5-5.1); Alkaline Phosphatase 159 U/L (38-126); Anion Gap 4 mmol/L (4-12); Aspartate Amino Transferase 27 U/L (17-59); Bilirubin,Total 0.6 mg/dL (0.2-1.3); Blood Urea Nitrogen 13 mg/dL (9-20); Calcium 8.6 mg/dL (8.4-10.2); Carbon Dioxide 26 mmol/L (22-30); Chloride 105 mmol/L (98-107); Estimated Glomerular Filt Rate > 60; Glucose 123 mg/dL (65-110); Potassium 3.6 mmol/L (3.4-5.0); Sodium 135 mmol/L (137-145)
[2023-07-02 09:11] LABS: NT Pro B Type Natriuretic Pept < 20 pg/mL (19.9-100); Troponin I < 0.012 ng/mL (0.000-0.034)
--- NOTE | 2023-07-02 14:11 | ED.ANXIETY ---
HPI - Anxiety General Chief Complaint: Anxiety Stated Complaint: increased HR, weakness Time Seen by Provider: 07/02/23 07:52 History of Present Illness HPI narrative: Patient presenting with palpitations that started prior to arrival here, he had a history of anxiety and this does feel similar to when he has panic attack. He is feeling better now he is here. Related Data Home Medications Medication Instructions Recorded Confirmed lamotrigine 200 mg tablet 200 mg PO BID 01/03/20 03/03/23 multivit with minerals-folic 1 tablet PO DAILY 04/18/21 03/03/23 acid-lycopene 0.4 mg-600 mcg tablet (Men's Daily Multivitamin-Mineral) buspirone 7.5 mg tablet 7.5 mg PO ONCE 11/02/22 03/03/23 quetiapine 100 mg tablet 100 mg PO QHS 03/03/23 03/03/23 quetiapine 25 mg tablet 25 mg PO QHS 03/03/23 03/03/23 Allergies Allergy/AdvReac Type Severity Reaction Status Date / Time No Known Allergies Allergy Unknown Verified 04/15/23 14:38 Review of Systems Review of Systems: CONST: No fever. HEENT: No sore throat C/V: Palpitations RESP: No cough GI: No abdominal pain : No dysuria. M/S: No joint pain. SKIN: No rash. NEURO: [No headache or focal numbness or weakness] PSYCH: Anxiety PMFSH Past Medical History Medical History Chronic kidney disease, stage III (moderate) COVID-19 Dyspnea Essential hypertension FLAKITO (obstructive sleep apnea) Overweight (BMI 25.0-29.9) Pure hypercholesterolemia Tear of medial meniscus of left knee Surgical History Surgical History H/O repair of rotator cuff right shoulder scope - Mary History of arthroscopy of left knee Partial medial meniscectomy August 04, 2021 History of back surgery Family History Family History Father Depression Family history of alcoholism Family history of heart disease in male family member before age 55, Onset Age: 60 Patient's father is Family history of cardiovascular disease, Onset Age: 60 Sibling Depression Asthma Family history of rheumatoid arthritis Patient's sister is in good health Patient's sister is Mother Family history of malignant neoplasm of breast in first degree relative Family history of heart disease in male family member before age 55 Family history of malignant neoplasm of breast Social History Social History Smoking status: Never smoker Second hand tobacco smoke exposure: No Alcohol intake: never Substance use: never Substance use type: does not use Lack of Transportation: No Lack of Food: Never True Current Housing: I Have Housing Concerned About Future Housing: No Difficulty Paying Gas/Electric Bills: No Difficulty Paying for Meds: No Currently Unemployed: No Education: Master's Degree or Higher Difficulty w/ Childcare or Family Care: No Living arrangements: with family Occupation/Education: retired Gender identity (if verbalized by the patient): Male Spiritual care concerns: No Exam Narrative: EXAMINATION OF ORGAN SYSTEMS/BODY AREAS: Constitutional: Vital signs per nursing GENERAL:[No acute distress, non-toxic appearing.] HEAD: Normal with no signs of head trauma. EYES: EOMI, conjunctiva normal ENT: Hearing grossly intact LUNGS: Nonlabored breathing. HEART: [Regular rate and rhythm] ABD: [Soft], [nontender to palpation] EXT: Normal range of motion SKIN: [No rashes or lesions.] NEURO: [Alert and oriented x 3. No gross focal sensory or strength deficits.] PSYCH: Normal affect Course Vital Signs Vital signs: Vital Signs Pulse Rate 93 07/02/23 07:46 Respiratory Rate 17 07/02/23 07:46 Blood Pressure 140/75 07/02/23 07:46 Pulse Oximetry 96 07/02/23 07:46 Temperature 98.0 F
== END 2023-07-02 09:57 | disposition home or self-care (01) ==
PROVIDERS: Emergency Provider Emergency Medicine; PCP Nurse Practitioner
DX: R00.2 Palpitations (principal); I12.9 Hypertensive chronic kidney disease with stage 1 through stage 4 chronic kidney disease, or unspecified chronic kidney disease; N18.30 Chronic kidney disease, stage 3 unspecified; E78.00 Pure hypercholesterolemia, unspecified; G47.33 Obstructive sleep apnea (adult) (pediatric); F41.9 Anxiety disorder, unspecified; Z86.16 Personal history of COVID-19; I45.10 Unspecified right bundle-branch block; R94.31 Abnormal electrocardiogram [ECG] [EKG]
CPT/HCPCS: 36415; 71045; 80053; 83880; 84484; 85025; 93005; 99284

== ENCOUNTER 2023-07-30 09:24 | Outpatient (CLI) | payer OTHER, SELFPAY ==
--- NOTE | 2023-08-04 15:23 | WPDHOLTEREM ---
Holter/Event Monitor Holter/Event Monitor Date of procedure: 08/04/23 Holter/Event Procedure: 48 Hr Holter Monitor Diagnosis: Palpitations Indications: Palpitations Image/Tracing Quality: Adequate. Total analysis of 47 hours and 59 minutes. Findin. Predominant rhythm is sinus rhythm. Average heart rate is 69 beats per minute. The minimum heart rate was 52 beats per minute. The maximum heart rate was 106 beats per minute. 2. No evidence of atrial fibrillation, SVT, pauses, heart block, or ventricular tachycardia. 3. PAC burden is <0.1% 4. PVC burden is <0.1%. 5. No patient reported symptoms. Conclusion: 1. Sinus rhythm with an average heart rate of 69 beats per minute. 2. Unremarkable monitor. 3. No patient reported symptoms.
== END 2023-07-30 09:25 | disposition home or self-care (01) ==
LOC: ANHCARD 09:25
PROVIDERS: PCP Nurse Practitioner; Visit Provider Nurse Practitioner
DX: R00.2 Palpitations (principal)
CPT/HCPCS: 93225; 93226

== ENCOUNTER 2023-10-02 18:00 | Observation (INO) | payer OTHER, SELFPAY ==
[2023-10-02] VITALS (10 sets, daily range): BP systolic 132–152; BP diastolic 64–88; PULSE 64–87; RESP 13–25; TEMP 36.1–36.7; O2SAT 98–100; BMI 29.2
--- NOTE | ~2023-10-02 | CT_ITS ---
EXAMINATION: CTA brain carotid DATE: 10/02/2023 20:01 INDICATION: Syncope. TECHNIQUE: Computed tomographic angiography (CTA) of the head was performed without and with 100 mL O mnipaque-350 intravenous contrast. CTA of the neck was performed with intravenous contrast. Automated exposure control and iterative reconstruction technique were employed. The dose-length product was 1 845.69 mGy-cm. Maximum intensity projection and volume rendered 3D-reconstructions were created by earnest technologist on a separate workstation. COMPARISON: Head CT 04/15/2023 FINDINGS: HEAD CTA: There is no intracranial hemorrhage, acute infarction, or abnormal intracranial mass lesion . The ventricles are normal in size. The orbits are normal. There is mild mucosal thickening in the p aranasal sinuses. The mastoid air cells are normal. The vertebral arteries are codominant. There is n o significant stenosis of basilar artery or the posterior cerebral arteries. The posterior communicat ing arteries are normal. There is no significant stenosis of the intracranial internal carotid arteri es or anterior or middle cerebral arteries. Anterior communicating artery is normal. There is no aneu rysm. NECK CTA: There are no pathologically enlarged lymph nodes. There is no significant stenosis of the v ertebral arteries. There is mild plaque in the proximal internal carotid arteries. There is 0% stenos is of the proximal right internal carotid artery relative to normal distal artery lumen diameter (AUDI CET criteria). There is 0% stenosis of the proximal left internal carotid artery relative to normal d istal artery lumen diameter. There is moderate cervical spondylosis. IMPRESSION: 1. Normal brain. No aneurysm or significant arterial stenosis. 2. 0% stenosis of the proximal internal carotid arteries relative to normal distal artery lumen diame ters (NASCET criteria). Reviewed, dictated and finalized at location E. IMPRESSION: 1. Normal brain. No aneurysm or significant arterial stenosis. 2. 0% stenosis of the proximal internal carotid arteries relative to normal dis gallo artery lumen diameters (NASCET criteria).
--- NOTE | ~2023-10-02 | MR_ITS ---
EXAMINATION: MR brain/brain stem wo/w con DATE: 10/03/2023 08:52 INDICATION: Altered mental status with syncopal episodes TECHNIQUE: Magnetic resonance imaging (MRI) of the brain and brainstem was performed without and with 20 mL Multihance intravenous contrast. Sequences included sagittal and axial T1-weighted SE, axial d iffusion-weighted FS SE, axial 3D SWAN, axial T2-weighted FLAIR, and axial T2-weighted FSE. Postcontr ast axial and coronal T1-weighted SE was obtained. Apparent diffusion coefficient (ADC) maps were cre ated. COMPARISON: None. FINDINGS: There are no areas of restricted diffusion to suggest acute infarction. No intracranial hemorrhage or abnormal intracranial mass lesion. Minimal scattered nonspecific increased T2-weighted signal intens ity in the cerebral white matter, predominantly involving the deep and periventricular white matter w hich is within normal limits for age. There are no intraparenchymal signal abnormalities seen on the other pulse sequences. The ventricles are symmetric and normal in size. There are no abnormal extra-a xial fluid collections. Flow voids are seen in the cerebral arteries on the T2-weighted sequences con sistent with their expected patency. Mild mucoperiosteal thickening at the bilateral ethmoid sinuses. Visualized orbits and soft tissues are unremarkable. There are no areas of abnormal enhancement on t he post contrast images. IMPRESSION: 1. No acute intracranial process or abnormally enhancing brain lesions. 2. Minimal periventricular predominant nonspecific white matter T2 hyperintensity which is within nor mal limits for age and likely sequela of chronic small vessel ischemic disease. Reviewed, dictated and finalized at location A. IMPRESSION: 1. No acute intracranial process or abnormally enhancing brain lesions. 2. Minimal periventricular predominant nonspecific white matter T2 hyperintensi ty which is within normal limits for age and likely sequela of chronic small ve ssel ischemic disease.
--- NOTE | ~2023-10-02 | XR_ITS ---
EXAMINATION: XR chest 1V DATE: 10/02/2023 20:19 INDICATION: Syncope. TECHNIQUE: A single frontal view of the chest was obtained. COMPARISON: Chest single view 07/02/2023 FINDINGS: There is no pneumonia, pleural effusion, or pneumothorax. The heart size is normal. IMPRESSION: 1. No acute cardiopulmonary disease. Reviewed, dictated and finalized at location E.
--- NOTE | 2023-10-02 18:11 | ECG_ITS ---
Test Date: 2023-10-02 18:12:21 Measurements Intervals [place] Rate: 77 P: 45 [place]: 176 QRS: -15 QRSD: 107 T: 15 QT: 380 QTc: 432 Interpretive Statements SINUS RHYTHM LOW QRS VOLTAGE IN PRECORDIAL LEADS [QRS DEFLECTION < 1.0 mV IN CHEST LEADS] INCOMPLETE RIGHT BUNDLE BRANCH BLOCK [90+ ms QRS DURATION, TERMINAL R IN V1/V2, 40+ ms S IN I/aVL/V4/V5/V6] POSSIBLE ANTERIOR MYOCARDIAL INFARCTION , PROBABLY OLD [30 ms Q WAVE IN V3/V4, OR R < 0.2 mV IN V4] No previous ECG available for comparison Electronically Signed On 10-03-2023 16:11:14 CDT by Alphonso Daniel M.D.
[2023-10-02 18:28] LABS: Basophils Percent Auto 0.4 % (0.2-1.2); Eosinophils Absolute Auto 0.2 K/mm3 (0-0.3); Eosinophils Percent Auto 3.9 % (0-4.4); Hematocrit 38.5 % (42.0-52.0); Hemoglobin 13.1 g/dL (14.0-18.0); Immature Granulocyte Absolute 0.01 K/mm3 (0.00-0.031); Immature Granulocyte Percent A 0.2 % (0-0.5); Lymphocytes Absolute Auto 1.46 K/mm3 (0.9-3.2); Lymphocytes Percent Auto 31.7 % (18.3-44.2); Mean Corpuscular Hemoglobin 29.3 pg (26-34); Mean Corpuscular Volume 86.1 fl (80-100); Mean Platelet Volume 10.2 fl (7.4-10.4); Monocytes Absolute Auto 0.4 K/mm3 (0.1-0.6); Monocytes Percent Auto 9.1 % (2.6-8.5); Neutrophils Absolute Auto 2.5 K/mm3 (1.3-6.7); Neutrophils Percent Auto 54.7 % (45.5-73.1); Platelet Count Result 178 k/mm3 (150-375); Red Blood Count 4.47 M/mm3 (4.6-6.20); Red Cell Distribution Width 12.9 % (11.5-14.5); White Blood Count 4.6 K/mm3 (4.5-10.0)
[2023-10-02 18:38] LABS: Alanine Aminotransferase 25 U/L (6-50); Albumin Level 4.3 g/dL (3.5-5.1); Alkaline Phosphatase 178 U/L (38-126); Anion Gap 6 mmol/L (4-12); Aspartate Amino Transferase 23 U/L (17-59); Bilirubin,Total 0.4 mg/dL (0.2-1.3); Blood Urea Nitrogen 15 mg/dL (9-20); Calcium 8.5 mg/dL (8.4-10.2); Carbon Dioxide 29 mmol/L (22-30); Chloride 102 mmol/L (98-107); Estimated CRCL calculation 68 ml/min; Estimated Glomerular Filt Rate > 60; Glucose 149 mg/dL (65-110); Potassium 3.9 mmol/L (3.4-5.0); Sodium 137 mmol/L (137-145)
[2023-10-02 18:42] LABS: Partial Thromboplastin Time 29.8 Seconds (22.3-36.8)
[2023-10-02 19:23] LABS: Appearance Urine Clear (Clear); Bilirubin Urine Negative (Negative); Blood Urine Negative (Negative); Color Urine Yellow (Yellow); Glucose Urine UA Negative (Negative); Ketones Urine Negative (Negative); Leukocyte Esterase Ur Negative LEU/UL (Negative); Nitrate Urine Negative (Negative); Protein Urine Negative (Negative); Specific Grav Ur 1.008 (1.001-1.035); Urobilinogen Urine 0.2 mg/dL (<2.0)
[2023-10-02 19:25] LABS: Add Urine Microscopic? NO
[2023-10-02 19:55] LABS: Magnesium 2.4 mg/dL (1.6-2.3)
[2023-10-02 19:55] LABS: Ethanol < 10 mg/dL (<10)
[2023-10-02 19:56] LABS: Lactic Acid Reflex 1.2 mmol/L (0.7-2.0)
[2023-10-02 20:00] LABS: Alveolar/Arterial O2 Gradient 17.8 mmHg; Base Excess ABG 2.9 mEq/l (+/-2.0); Fractional Inspired Oxygen 21 %; HCO3 ABG 27.7 mEq/l (22.0-26.0); Oxygen Content ABG 17.6 %vol (16.0-22.0); Oxyhemoglobin 95.2 % THb (90.0-100.0); PCO2 ABG 43.5 mmHg (35.0-45.0); PO2 ABG 79.8 mmHg (80.0-100.0); Total Hemoglobin 13.1 g/dL (12.0-18.0); pH ABG 7.422 (7.350-7.450)
[2023-10-02 20:01] LABS: Device ROOM AIR; Modified Allen's Test Pass; Site Drawn RIGHT RADIAL
[2023-10-02] MEDS: SODIUM CHLORIDE 0.9% IV 1,000 ML 999 ML IV CONT (20:01)
[2023-10-02 20:05] LABS: Amphetamine Screen Urine Negative (Negative); Barbiturate Screen Urine Negative (Negative); Benzodiazepines Screen Urine Negative (Negative); Cannabinoid Screen Urine Negative (Negative); Cocaine Screen Urine Negative (Negative); Methadone Screen Urine Negative (Negative); Opiate Screen Urine Negative (Negative); Phencyclidine Screen Urine Negative (Negative)
[2023-10-02 20:13] LABS: Troponin I < 0.012 ng/mL (0.000-0.034)
[2023-10-02 20:19] LABS: Procalcitonin < 0.0 ng/mL
--- NOTE | 2023-10-02 20:45 | ED.GENADULT ---
HPI - General Adult General Chief complaint: Altered Mental Status Stated complaint: lethargy & apathy Time Seen by Provider: 10/02/23 19:15 History of Present Illness HPI narrative: Patient is a 68-year-old gentleman who presents emergency department with chief complaint of altered mental status. Patient reports over the last 2 weeks he has been having episodes where he starts feeling weak feels as though he is going to pass out and then does not passing out the family reports that afterwards he is weak all over has had some difficulty speaking. The family reports no shaking of patient reports no focal side of the body being weak or a facial droop Related Data Home Medications Medication Instructions Recorded Confirmed lamotrigine 200 mg tablet 200 mg PO BID 01/03/20 09/08/23 multivit with minerals-folic 1 tablet PO DAILY 04/18/21 09/08/23 acid-lycopene 0.4 mg-600 mcg tablet (Men's Daily Multivitamin-Mineral) quetiapine 100 mg tablet 600 mg PO QHS 07/09/23 09/08/23 buspirone 7.5 mg tablet 15 mg PO BID 09/08/23 09/08/23 metoprolol tartrate 50 mg tablet 50 mg PO Q12H 09/08/23 09/08/23 vibegron 75 mg tablet (Gemtesa) 75 mg PO DAILY 09/08/23 09/08/23 Allergies Allergy/AdvReac Type Severity Reaction Status Date / Time No Known Allergies Allergy Unknown Verified 09/08/23 06:43 Review of Systems Review of Systems: A 10 system review of systems was completed on the patient and is negative except for what is stated in the HPI. Nursing and ancillary documentation was reviewed. [facility] Past Medical History Medical History Chronic kidney disease, stage III (moderate) COVID-19 Dyspnea Essential hypertension FLAKITO (obstructive sleep apnea) Overweight (BMI 25.0-29.9) Pure hypercholesterolemia Tear of medial meniscus of left knee Surgical History Surgical History H/O repair of rotator cuff right shoulder scope - Mary History of arthroscopy of left knee Partial medial meniscectomy August 04, 2021 History of back surgery Family History Family History Father Depression Family history of alcoholism Family history of heart disease in male family member before age 55, Onset Age: 60 Patient's father is Family history of cardiovascular disease, Onset Age: 60 Sibling Depression Asthma Family history of rheumatoid arthritis Patient's sister is in good health Patient's sister is Mother Family history of malignant neoplasm of breast in first degree relative Family history of heart disease in male family member before age 55 Family history of malignant neoplasm of breast Social History Social History Smoking status: Never smoker Second hand tobacco smoke exposure: No Alcohol intake: never Substance use: never Substance use type: does not use Lack of Transportation: No Lack of Food: Never True Current Housing: I Have Housing Concerned About Future Housing: No Difficulty Paying Gas/Electric Bills: No Difficulty Paying for Meds: No Currently Unemployed: No Education: Master's Degree or Higher Difficulty w/ Childcare or Family Care: No Living arrangements: with family Occupation/Education: retired Gender identity (if verbalized by the patient): Male Spiritual care concerns: No Exam Narrative: GENERAL: Well-appearing, well-nourished, and in no acute distress. HEAD: Normocephalic, atraumatic. EYES: PERRLA and EOMI. ENT: Nares clear, no rhinorrhea or epistaxis. Mucous membranes moist. NECK: Supple. CHEST: Clear to auscultation. No respiratory distress. HEART: Regular rate and rhythm. No murmur heard. Normal peripheral pulses. ABDOMEN: Soft, nontender, nondistended, normal active
--- NOTE | 2023-10-02 21:04 | PM.IMHP ---
H&P: HPI History of Present Illness Date/Time: 10/02/23 21:04 Chief Complaint: syncope Narrative: This is a 68-year-old male with past medical history significant for chronic kidney disease, hypertension, obstructive sleep apnea. patient presents to the emergency room after having recurrent syncopal episodes, blurry vision, temporary blindness, twitching of the legs. patient has these episodes either standing or sitting, a has been going on on and off for the last 6 months or so today he arrived to emergency room via ambulance. preliminary workup has been essentially nonrevealing. Patient denies any fevers, rigors, chills, nausea, vomiting, abdominal pain, weight loss, rashes, headaches, focal weakness, unsteady gait. Patient is been admitted for further evaluation management and treatment. EXAMINATION: CTA brain carotid DATE: 10/02/2023 20:01 INDICATION: Syncope. TECHNIQUE: Computed tomographic angiography (CTA) of the head was performed without and with 100 mL Omnipaque-350 intravenous contrast. CTA of the neck was performed with intravenous contrast. Automated exposure control and iterative reconstruction technique were employed. The dose-length product was 1845.69 mGy-cm. Maximum intensity projection and volume rendered 3D-reconstructions were created by the technologist on a separate workstation. COMPARISON: Head CT 04/15/2023 FINDINGS: HEAD CTA: There is no intracranial hemorrhage, acute infarction, or abnormal intracranial mass lesion. The ventricles are normal in size. The orbits are normal. There is mild mucosal thickening in the paranasal sinuses. The mastoid air cells are normal. The vertebral arteries are codominant. There is no significant stenosis of basilar artery or the posterior cerebral arteries. The posterior communicating arteries are normal. There is no significant stenosis of the intracranial internal carotid arteries or anterior or middle cerebral arteries. Anterior communicating artery is normal. There is no aneurysm. NECK CTA: There are no pathologically enlarged lymph nodes. There is no significant stenosis of the vertebral arteries. There is mild plaque in the proximal internal carotid arteries. There is 0% stenosis of the proximal right internal carotid artery relative to normal distal artery lumen diameter (NASCET criteria). There is 0% stenosis of the proximal left internal carotid artery relative to normal distal artery lumen diameter. There is moderate cervical spondylosis. IMPRESSION: 1. Normal brain. No aneurysm or significant arterial stenosis. 2. 0% stenosis of the proximal internal carotid arteries relative to normal distal artery lumen diameters (NASCET criteria). EXAMINATION: XR chest 1V DATE: 10/02/2023 20:19 INDICATION: Syncope. TECHNIQUE: A single frontal view of the chest was obtained. COMPARISON: Chest single view 07/02/2023 FINDINGS: There is no pneumonia, pleural effusion, or pneumothorax. The heart size is normal. IMPRESSION: 1. No acute cardiopulmonary disease. Review of Systems Review of Systems: Syncope, leg twitching. Constitutional: Constitutional: Denies chills, Denies fever(s), Denies malaise, Denies night sweats, Denies poor appetite, Denies weakness and Denies weight loss Eyes: Eyes: Reports blurry vision and Reports loss of vision ( temporary) ENT: Denies dysphagia, Denies vertigo, Denies dizziness, Denies nasal congestion, Denies nasal discharge, Denies odynophagia and Denies disequilibrium Cardiovascular: Cardiovascular: Denies chest pain Respiratory: Respiratory: Denies chest congestion and Denies cough Gastrointestinal: Gastrointestinal: Denies abdominal pain, Denies diarrhea, Denies nausea and Denies vomiting Genitourinary: Genitourinary: Denies dysuria Musculoskeletal: Musculoskeletal: Denies myalgias Integumentary/Breasts: Skin/Breast: Denies rash Neurologic: Reports syncope, Denies focal weakness and Denies Sensory deficit (Neuro) Psyc
[2023-10-03] VITALS (12 sets, daily range): BP systolic 133–147; BP diastolic 62–76; PULSE 59–81; RESP 13–22; TEMP 36.2–37.6; O2SAT 98–100
[2023-10-03 00:30] LABS: Troponin I < 0.012 ng/mL (0.000-0.034)
--- NOTE | 2023-10-03 07:50 | PM.IMPN ---
Progress Note: A&P Assessment and Plan (1) Syncope: Code(s): R55 - Syncope and collapse Status: Acute Assessment and Plan: c/o syncopal episode at home that have been going on for the last 2 years but occurring more frequently for the last 6 months. Episodes occurring 1-3 times a day and are debilitating with completing ADLs. +LOC. Head and neck CT show normal brain, 0% stenosis MRI no acute intracranial process or abnormal lesions. Minimal periventricular predominant nonspecific white matter T2 hyperdensity within normal limits for age. ECHO ordered and pending EEG ordered Hemoglobin A1C is normal 5.5% from 08/2023 TSH and lipid panel ordered for the am Patient recently wore a 48 Holter monitor in 08/2023 which showed no arrhythmia. Currently on telemetry Orthostatic blood pressures ordered daily (2) Myoclonic jerking: Code(s): G25.3 - Myoclonus Status: Acute Assessment and Plan: Patient reports uncontrollable jerking movements of extremities and sometimes his jaw. He reports biting his tongue because his jaw snapped shut uncontrollably. Consider seizure. EEG ordered neurology consulted, rec's appreciated (3) FLAKITO (obstructive sleep apnea): Code(s): G47.33 - Obstructive sleep apnea (adult) (pediatric) Status: Acute Assessment and Plan: CPAP at nighttime (4) Chronic kidney disease, stage III (moderate): Code(s): N18.3 - Chronic kidney disease, stage 3 (moderate) Status: Acute Assessment and Plan: Continue to monitor BUN and creatinine Avoid nephrotoxic medications (5) Bipolar disorder, unspecified: Qualifiers: Active/Remission status: remission status unspecified Qualified Code(s): F31.9 - Bipolar disorder, unspecified Code(s): F31.9 - Bipolar disorder, unspecified Status: Acute Assessment and Plan: Continue Lamictal and Seroquel Subjective Date/time seen: 10/03/23 07:50 Interval history: This is a 68-year-old male with a past medical history significant for bipolar, anxiety, BPH, FLAKITO, HTN, CKD stage III, and panic attacks who presented to the emergency room with complaints of syncopal episode. The patient provides the following history. The episodes that he describes have been going on for 2 years occurring every 1-2 weeks but in the last 6 months the episodes have been occurring 1 to 3 times a day causing debilitation in his activities of daily life. He states that the episodes do not seem to be related to positional changes. He will be come dizzy sometimes with an accompanying headache, have myoclonic jerking movements of his extremities and then have extreme body fatigue leading to syncope. Many times he is able to feel the episodes coming on and if he sits down he will not syncopize. He describes vision loss that occurs with these episodes. Sometimes it is as though someone is closing the blinds on him. He also describes an episode of when he was driving in his left eye became blurry. He does not experience confusion with these episodes. He denies paresthesia and cannot say whether the weakness is ascending versus descending in nature. In terms of his panic attacks he has been seen in the emergency room twice for these both here at [facility] with the last 1 occurring in June of this year. He follows with a psych nurse practitioner Michael Berry, who started him on metoprolol for tachycardia and he states this helped his anxiety improve. He also takes Lamictal and Seroquel. On exam today he is resting in bed comfortably. He currently has no complaints at this present moment. Review of Systems Review of Systems: All systems reviewed & are unremarkable except as noted in HPI and below Exam Narrative: General: well appearing, appears stated age. HEENT: normocephalic, atraumatic. Mucous membranes moist. EOMI, PERRLA, bilateral sclera anicteric, no conjunctival injection. Neck supple without J
[2023-10-03 08:34] LABS: Iron 54 ug/dL (49-181)
[2023-10-03 08:43] LABS: Percent Iron Saturation 13 % (20-50)
[2023-10-03] MEDS: busPIRone HCL 2.5 MG TABLET PO ×2 (09:15→21:00)
[2023-10-03] MEDS: TAMSULOSIN HCL 0.4 MG CAPSULE PO (09:15)
[2023-10-03] MEDS: QUEtiapine FUMARATE 25 MG TABLET 50 MG PO (09:15)
[2023-10-03] MEDS: lamoTRIgine 100 MG TABLET 200 MG PO ×2 (09:15→18:11)
[2023-10-03] MEDS: busPIRone HCL 5 MG TABLET PO ×2 (09:16→21:01)
[2023-10-03 09:48] LABS: Folic Acid > 20.0 ng/mL (2.76->20)
--- NOTE | 2023-10-03 10:24 | WPDNEURCNPN ---
Assessment and Plan Assessment and plan (1) Syncope: Code(s): R55 - Syncope and collapse Status: Acute Plan 68 years old with recurrent syncopal episodes along with the blurry vision temporary blindness twitching of the legs with standing or sitting own off for the 6 months. Neuro exam is nonfocal routine studies are normal with normal MRI of the brain and negative CTA of the head and neck. Complaints are suggestive of not focal structural lesion the multifocal widespread raising the possibility of myoclonic jerk versus simple anxiety considering the normal MRI [place] echocardiogram will be suggested to rule out the possibility of the recurrent TIA which is unlikely and patient has been explained that he is already taking BuSpar 15mg twice a day with lamotrigine 200mg twice a day which is a good anticonvulsant as well and he is taking Seroquel 400mg at night along with 50mg daily there is no reason to add any medication at this stage we can obtain the EEG to make sure that he is not having myoclonic jerks and also as mentioned above co cardiogram to rule out the possibility of the recurrent TIA of cardiac source ,he seems satisfied. Consult date: 10/03/23 HPI: Basilio Jaimes is a 68 year old male Admitted to the hospital through the emergency room for the complaints of change in the mental status and with information that over the last 2 weeks he has been having recurrent episodes when he starts feeling weak as he is going to pass out and then does not pass out but afterwards he is generally weak and has difficulties in speaking patient's family has not noted any shaking of the upper or lower extremities. Patient has been taking lamotrigine 200mg twice a day in addition to Seroquel 600mg at night, BuSpar 15mg twice a day, metoprolol 50mg twice a day, and gem Luzma 75mg daily. He is not allergic to any medication he does have ongoing history of chronic kidney disease stage 3, hypertension, and obstructive sleep apnea. In the past he has had the particularly back surgery he is never a smoker, never alcohol intake or, and on initial examination gross neuro examination was nonfocal. His vital signs were normal. CTA of the head and neck was normal initial CBC was normal so as the BMP and drug screen was negative. Since admission he has had MRI of the brain which reveals no acute intracranial process but minimal periventricular predominant nonspecific white matter hyperintensities which is compatible with chronic small vessel ischemic disease. Review of Systems Review of Systems: All systems reviewed & are unremarkable except as noted in HPI and below PMFSH Past Medical History Medical History Chronic kidney disease, stage III (moderate) COVID-19 Dyspnea Essential hypertension FLAKITO (obstructive sleep apnea) Overweight (BMI 25.0-29.9) Pure hypercholesterolemia Tear of medial meniscus of left knee Surgical History Surgical History H/O repair of rotator cuff right shoulder scope - Mary History of arthroscopy of left knee Partial medial meniscectomy August 04, 2021 History of back surgery Family History Family History Father Depression Family history of alcoholism Family history of heart disease in male family member before age 55, Onset Age: 60 Patient's father is Family history of cardiovascular disease, Onset Age: 60 Sibling Depression Asthma Family history of rheumatoid arthritis Patient's sister is in good health Patient's sister is Mother Family history of malignant neoplasm of breast in first degree relative Family history of heart disease in male family member before age 55 Family history of malignant neoplasm of breast Social History Social History Smoking status: Never smok
--- NOTE | 2023-10-03 16:00 | PC.NURSE ---
RN received pt from [place] and pt was stable and not in distress
[2023-10-03] MEDS: ATORVASTATIN 20 MG TABLET PO (21:01)
[2023-10-03] MEDS: QUEtiapine FUMARATE 100 MG TABLET 400 MG PO (21:01)
[2023-10-03] MEDS: FINASTERIDE 5 MG TABLET PO (21:01)
[2023-10-03] MEDS: METOPROLOL SUCCINATE EXT REL 50 MG TABCR PO (21:01)
--- NOTE | 2023-10-03 21:30 | PC.NURSE ---
Upon entering room, patient moaning with head, shoulders, and back rocking side to side in bed with feet/legs shaking tremoring. Patient unable to respond to stimuli. Patient diaphoretic and red and appears to be apneic during event. Witnessed portion of event lasted approx 35-40 seconds before movement subsided. Rapid response called. Spoke with Dr. Moyer. Order received for 1gm IVPB keppra. Event lasted approx 5 minutes before patient able to respond verbally.
[2023-10-03 21:37] LABS: Glucose Point of Care 85 mg/dl (65-105)
[2023-10-03] MEDS: levETIRAcetam 1000MG/NACL100ML 1,000 MG/100 ML BAG 400 MG IVPB (21:41)
[2023-10-03] MEDS: ACETAMINOPHEN 500 MG TABLET 1000 MG PO (22:00)
[2023-10-04] VITALS (8 sets, daily range): BP systolic 110–138; BP diastolic 64–88; PULSE 55–71; RESP 16–18; TEMP 36.1–37.2; O2SAT 98–99
[2023-10-04 05:04] LABS: Basophils Percent Auto 0.5 % (0.2-1.2); Eosinophils Absolute Auto 0.2 K/mm3 (0-0.3); Eosinophils Percent Auto 3.5 % (0-4.4); Hematocrit 40.1 % (42.0-52.0); Hemoglobin 13.4 g/dL (14.0-18.0); Immature Granulocyte Absolute 0.01 K/mm3 (0.00-0.031); Immature Granulocyte Percent A 0.2 % (0-0.5); Lymphocytes Absolute Auto 1.64 K/mm3 (0.9-3.2); Lymphocytes Percent Auto 28.9 % (18.3-44.2); Mean Corpuscular HGB Conc 33.4 g/dl (32-36); Mean Corpuscular Hemoglobin 29.3 pg (26-34); Mean Corpuscular Volume 87.7 fl (80-100); Mean Platelet Volume 10.5 fl (7.4-10.4); Monocytes Absolute Auto 0.6 K/mm3 (0.1-0.6); Monocytes Percent Auto 11.1 % (2.6-8.5); Neutrophils Absolute Auto 3.2 K/mm3 (1.3-6.7); Neutrophils Percent Auto 55.8 % (45.5-73.1); Platelet Count Result 189 k/mm3 (150-375); Red Blood Count 4.57 M/mm3 (4.6-6.20); Red Cell Distribution Width 13.3 % (11.5-14.5); White Blood Count 5.7 K/mm3 (4.5-10.0)
[2023-10-04 05:14] LABS: Cholesterol 144 mg/dL (0-200); HDL Direct 68 mg/dL; Triglycerides 92 mg/dL (<150)
[2023-10-04 05:18] LABS: Alanine Aminotransferase 26 U/L (6-50); Albumin Level 3.9 g/dL (3.5-5.1); Alkaline Phosphatase 156 U/L (38-126); Anion Gap 7 mmol/L (4-12); Aspartate Amino Transferase 23 U/L (17-59); Bilirubin,Total 0.5 mg/dL (0.2-1.3); Blood Urea Nitrogen 14 mg/dL (9-20); Calcium 8.7 mg/dL (8.4-10.2); Carbon Dioxide 23 mmol/L (22-30); Chloride 107 mmol/L (98-107); Estimated CRCL calculation 68 ml/min; Estimated Glomerular Filt Rate > 60; Glucose 90 mg/dL (65-110); Magnesium 2.3 mg/dL (1.6-2.3); Potassium 4.2 mmol/L (3.4-5.0); Sodium 137 mmol/L (137-145)
[2023-10-04 05:25] LABS: LDL Cholesterol Direct 61 mg/dL
--- NOTE | 2023-10-04 06:00 | ECHO_ITS ---
Patient Info Name: Basilio Jaimes Age: 68 years : 1955 Gender: Male Ht: 72 in Wt: 227 lbs BSA: 2.31 m2 HR: 61 bpm BP: 112 / 64 mmHg Technical Quality: Fair Exam Date: 10/04/2023 9:00 AM Exam Location: Echo Lab Patient Status: Inpatient Admit Date: 10/02/2023 Staff Ordering Physician: Arslan Romero MD Financial Planning Adviser: Franklyn Butler RDCS Attending Provider: Delia Shultz APRN Referring Physician: Nick STONE; Exam Type: CA echo doppler color flow Study Info Indications R55 - Syncope and collapse Complete two-dimensional, color flow and Doppler transthoracic echocardiogram is performed. Summary 1. Complete two-dimensional, color flow and Doppler transthoracic echocardiogram is performed. 2. Left ventricular chamber dimension is normal. 3. Left ventricular systolic function is normal, estimated at 65-70%. 4. The left ventricular diastolic function is normal. 5. E/e' 8 is minimally elevated. 6. No pulmonary hypertension, estimated pulmonary arterial systolic pressure is 32 mmHg. 7. There is trace pulmonic regurgitation. Left Ventricle E/e' 8 is minimally elevated. Left ventricular chamber dimension is normal. Left ventricular systolic function is normal, estimated at 65-70%. The left ventricular diastolic function is normal. Right Ventricle Right ventricular systolic function is normal and with normal TAPSE 2.5 cm. Right ventricular chamber dimension is normal. Left Atria Left atrial chamber dimension is normal. Right Atria Right atrial chamber dimension is normal. Aortic Valve The aortic valve is trileaflet. There is no aortic valve stenosis. There is no aortic valve regurgitation. Pulmonic Valve There is trace pulmonic regurgitation. Mitral Valve There is no mitral valve stenosis. There is no mitral valve regurgitation. Tricuspid Valve There is no tricuspid valve regurgitation. No pulmonary hypertension, estimated pulmonary arterial systolic pressure is 32 mmHg. Pericardium/Pleural There is no pericardial effusion. Inferior Vena Cava Normal inferior vena cava with >50% collapse upon inspiration consistent with normal right atrial pressure, 5 mmHg. Aorta The aortic root size at the sinus of Valsalva is normal. Left Ventricular Outflow Tract Name Value Normal LVOT 2D LVOT Diameter 2.0 cm LVOT Doppler LVOT Peak Gradient 3 mmHg LVOT Mean Gradient 1 mmHg LVOT VTI 17 cm LVOT VTI/AV VTI Ratio 0.6 LVOT Stroke Volume 55 ml LVOT CO 3.0 l/min LVOT CI 1.3 l/min/m2 Pulmonic Valve Name Value Normal RVOT Doppler RVOT Peak Gradient 1 mmHg PV Doppler PV Peak Gradient 8 mmHg
--- NOTE | 2023-10-04 08:16 | PM.IMPN ---
Progress Note: A&P Assessment and Plan (1) Syncope: Code(s): R55 - Syncope and collapse Status: Acute Assessment and Plan: c/o syncopal episode at home that have been going on for the last 2 years but occurring more frequently for the last 6 months. Episodes occurring 1-3 times a day and are debilitating with completing ADLs. +LOC. Head and neck CT show normal brain, 0% stenosis MRI no acute intracranial process or abnormal lesions. Minimal periventricular predominant nonspecific white matter T2 hyperdensity within normal limits for age. ECHO ordered and pending EEG ordered Hemoglobin A1C is normal 5.5% from 08/2023 TSH and lipid panel ordered for the am Patient recently wore a 48 Holter monitor in 08/2023 which showed no arrhythmia. Currently on telemetry Orthostatic blood pressures ordered daily 10/03: Echocardiogram shows normal left ventricular systolic function with EF estimated at 65-70%, normal left diastolic function. EEG was normal. (2) Myoclonic jerking: Code(s): G25.3 - Myoclonus Status: Acute Assessment and Plan: Patient reports uncontrollable jerking movements of extremities and sometimes his jaw. He reports biting his tongue because his jaw snapped shut uncontrollably. Consider seizure. EEG ordered neurology consulted, rec's appreciated (3) FLAKITO (obstructive sleep apnea): Code(s): G47.33 - Obstructive sleep apnea (adult) (pediatric) Status: Acute Assessment and Plan: CPAP at nighttime (4) Chronic kidney disease, stage III (moderate): Code(s): N18.3 - Chronic kidney disease, stage 3 (moderate) Status: Acute Assessment and Plan: Continue to monitor BUN and creatinine Avoid nephrotoxic medications (5) Bipolar disorder, unspecified: Qualifiers: Active/Remission status: remission status unspecified Qualified Code(s): F31.9 - Bipolar disorder, unspecified Code(s): F31.9 - Bipolar disorder, unspecified Status: Acute Assessment and Plan: Continue Lamictal and Seroquel Plan Feeding: Heart healthy Analgesia: Tylenol Thromboembolic prophylaxis: SCDs Lines: PIV Antibiotics: na Disposition: Likely to discharge home today after echo and EEG with neurology blessing Advance Care Plan I have confirmed that the patient's Advanced Care Plan is present, code status is documented, or surrogate decision maker is listed in patient medical record.: Yes Medication Reconciliation I have utilized all available resources to obtain, update and review the patients current medications (includes all prescriptions, OTC, herbals, cannabis, and nutritional supplements).: Yes Subjective Date/time seen: 10/04/23 08:16 Interval history: This is a 68-year-old male with a past medical history significant for bipolar, anxiety, BPH, FLAKITO, HTN, CKD stage III, and panic attacks who presented to the emergency room with complaints of syncopal episode. 10/03: Patient is resting in bed. He does not appear in any acute distress. He reports that he had an episode overnight concerning for seizure. He states that he did not have confusion after this episode, no incontinence, he remembers everything prior to the episode. He states he feels drained and ?empty? which is how he usually feels before these episodes. He also reports left eye vision impairment prior to the episode yesterday. Review of Systems Review of Systems: All systems reviewed & are unremarkable except as noted in HPI and below Exam Narrative: General: well appearing, appears stated age. HEENT: normocephalic, atraumatic. Mucous membranes moist. EOMI, PERRLA, bilateral sclera anicteric, no conjunctival injection. Neck supple without JVD, lymphadenopathy, or bruit. Respiratory: clear to auscultation bilaterally. No rales/rhonic/wheezes. Cardiovascular: Regular rate and rhythm, normal S1-S2 upon auscultation. No murmurs, rubs, or clicks. PMI
[2023-10-04] MEDS: busPIRone HCL 5 MG TABLET PO (09:47)
[2023-10-04] MEDS: TAMSULOSIN HCL 0.4 MG CAPSULE PO (09:47)
[2023-10-04] MEDS: busPIRone HCL 2.5 MG TABLET PO (09:47)
[2023-10-04] MEDS: lamoTRIgine 100 MG TABLET 200 MG PO ×2 (09:47→17:00)
[2023-10-04] MEDS: QUEtiapine FUMARATE 25 MG TABLET 50 MG PO (09:47)
--- NOTE | 2023-10-04 11:00 | WPDNEUROLOGY ---
Neurology EEG Report General Information Date of Study: 10/04/23 TEST Electroencephalogram DIAGNOSIS Possible seizure-like spells CONDITION OF RECORDING bedside according EEG NUMBER [id number] CLINICAL HISTORY History of not feeling well for 1 or 2 weeks and episodes of becoming weak and shaky and losing consciousness. There is no prior history of seizure disorder. EEG DESCRIPTION During wakefulness the background activity consists of theta I met 8 hertz with an amplitude of 15-35 microvolts which appears well-formed and reactive to eye opening. Anteriorly low amplitude mixed frequency activity was seen. There is no significant anteroposterior gradient. Hyperventilation was not performed. During drowsiness attenuation of background activity was seen however patient did not progress to stage 2 sleep. Photic stimulation was not performed. IMPRESSION This is a normal EEG obtained during awake and drowsy states.
[2023-10-04] MEDS: ACETAMINOPHEN 325 MG TABLET PO (11:43)
--- NOTE | 2023-10-04 17:03 | WPDNEUROPN ---
Progress Note: A&P Assessment and Plan (1) Myoclonic jerking: Code(s): G25.3 - Myoclonus Status: Acute (2) Syncope: Code(s): R55 - Syncope and collapse Status: Acute (3) Altered mental status: Code(s): R41.82 - Altered mental status, unspecified Status: Acute Plan The patient has had several spells in which she had jerking of the body and unresponsiveness. Based upon the description it is reasonable to resume that these are all most likely seizure episodes. He has not had any positive finding and either examination or MRI or EEG or angiographic studies of head and neck. He may be empirically treated with anticonvulsants and followed up in Neurology Clinic. Otherwise we can do a prolactin level and repeat a prolactin level within 30 minutes having a spell to see if this helps and as a make a diagnosis further. He has had some cardiac monitoring done early August which also did not show any significant abnormality. I shall be glad to see him for follow-up in my office. I had opportunity to speak to the patient's family members and explained to them in detail. Subjective Date/time seen: 10/04/23 17:03 Interval history: Patient has had at least 4- 5 spells of shaking and unresponsiveness in the last 6 months. He has had MRI of the brain, cardiac monitoring, EEG, CT angiogram which all have been within normal range. In between the spells he does not have any ongoing symptoms. His and daughter were present at the time of evaluation. He was started on Keppra. Review of Systems Review of Systems: All systems reviewed & are unremarkable except as noted in HPI and below Exam Narrative: Fully conscious alert oriented to self time place and person speech is full and articulate. Patient appears fairly intelligent and expressive. Cranial nerves you testing are intact. Motor system moving both upper and lower limbs. No involuntary movements are seen. Neurology insert findings were grossly within acceptable normal range. Objective Data Vital Signs Vital Signs: Vital Signs - 24 hr 10/03/23 20:35 10/03/23 21:30 10/03/23 21:35 Temperature 37.1 C 36.9 C 36.9 C Pulse Rate 61 78 81 Respiratory Rate 16 18 22 H Blood Pressure 137/76 147/62 H 147/62 H Pulse Oximetry 98 100 100 Oxygen Delivery Room Air 10/03/23 20:00 10/03/23 20:00 10/04/23 00:00 Temperature Pulse Rate 66 59 L Respiratory Rate Blood Pressure Pulse Oximetry 100 Oxygen Delivery Room Air 10/04/23 04:00 10/04/23 05:51 10/04/23 07:29 Temperature 37.2 C 36.6 C Pulse Rate 57 L 61 58 L Respiratory Rate 18 16 Blood Pressure 112/64 120/72 Pulse Oximetry 99 99 Oxygen Delivery 10/04/23 07:29 10/04/23 07:29 10/04/23 08:00 Temperature Pulse Rate Respiratory Rate Blood Pressure 110/88 110/78 Pulse Oximetry Oxygen Delivery Room Air 10/04/23 14:00 10/04/23 08:00 10/04/23 12:00 Temperature 36.1 C L Pulse Rate 71 55 L 70 Respiratory Rate 16 Blood Pressure 138/83 Pulse Oximetry 98 Oxygen Delivery 10/04/23 16:00 Temperature Pulse Rate 70 Respiratory Rate Blood Pressure Pulse Oximetry Oxygen Delivery Intake/Output Intake/Output: Intake & Output 10/01/23 10/02/23 10/03/23 10/04/23 23:59 23:59 23:59 23:59 Intake Total 1000 2600 720 Output Total 300 1650 1300 Balance 700 950 -580 Meds/Results Medications: Active Medications Generic Name Dose Route Start Last Admin Trade Name Freq PRN Reason Stop Dose Admin Acetaminophen 325 mg 10/04/23 08:20 10/04/23 11:43 Acetaminophen 325 Mg Tablet PO 325 mg Q4H PRN Administration Mild Pain (1-3) or Fever Atorvastatin Calcium 20 mg 10/03/23 21:00 10/03/23 21:01 Atorvastatin 20 Mg Tablet PO 20 mg QHS MEKHI Administration Buspirone HCl 5 mg 10/03/23 09:00 10/04/23 09:47 Buspirone Hcl 5 Mg Tablet PO 5 mg Q12HR MEKHI Administration Buspirone HCl 2.5 m
--- NOTE | 2023-10-05 16:14 | PM.DS ---
DS: Admitting Diagnosis Discharge Date 10/04/23 Admitting Diagnosis Fainting, jerking DS: Discharge Diagnosis Discharge Diagnosis (1) Syncope: Code(s): R55 - Syncope and collapse Status: Acute Assessment and Plan: c/o syncopal episode at home that have been going on for the last 2 years but occurring more frequently for the last 6 months. Episodes occurring 1-3 times a day and are debilitating with completing ADLs. +LOC. Head and neck CT show normal brain, 0% stenosis MRI no acute intracranial process or abnormal lesions. Minimal periventricular predominant nonspecific white matter T2 hyperdensity within normal limits for age. ECHO ordered and pending EEG ordered Hemoglobin A1C is normal 5.5% from 08/2023 TSH and lipid panel ordered for the am Patient recently wore a 48 Holter monitor in 08/2023 which showed no arrhythmia. Currently on telemetry Orthostatic blood pressures ordered daily 10/03: Echocardiogram shows normal left ventricular systolic function with EF estimated at 65-70%, normal left diastolic function. EEG was normal. (2) Myoclonic jerking: Code(s): G25.3 - Myoclonus Status: Acute Assessment and Plan: Patient reports uncontrollable jerking movements of extremities and sometimes his jaw. He reports biting his tongue because his jaw snapped shut uncontrollably. Consider seizure. EEG ordered neurology consulted, rec's appreciated (3) FLAKITO (obstructive sleep apnea): Code(s): G47.33 - Obstructive sleep apnea (adult) (pediatric) Status: Acute Assessment and Plan: CPAP at nighttime (4) Chronic kidney disease, stage III (moderate): Code(s): N18.3 - Chronic kidney disease, stage 3 (moderate) Status: Acute Assessment and Plan: Continue to monitor BUN and creatinine Avoid nephrotoxic medications (5) Bipolar disorder, unspecified: Qualifiers: Active/Remission status: remission status unspecified Qualified Code(s): F31.9 - Bipolar disorder, unspecified Code(s): F31.9 - Bipolar disorder, unspecified Status: Acute Assessment and Plan: Continue Lamictal and Seroquel Plan Feeding: Heart healthy Analgesia: Tylenol Thromboembolic prophylaxis: SCDs Lines: PIV Antibiotics: na Disposition: Likely to discharge home today after echo and EEG with neurology blessing Advance Care Plan I have confirmed that the patient's Advanced Care Plan is present, code status is documented, or surrogate decision maker is listed in patient medical record.: Yes Medication Reconciliation I have utilized all available resources to obtain, update and review the patients current medications (includes all prescriptions, OTC, herbals, cannabis, and nutritional supplements).: Yes DS: Summary Hospital Course Reason for hospitalization: Seizure Hospital Course: 68-year-old male with a past medical history significant for bipolar, anxiety, BPH, FLAKITO, HTN, CKD stage III, and panic attacks who presented to the emergency room with complaints of syncopal episode. He was admitted and Neurology was consulted. He had a questionable seizure episode overnight receiving 1 g Keppra. EEG was negative. Brain MRI negative. Echo was normal. Neurology increased his Lamictal to 250 mg p.o. b.i.d.. They also had may get a baseline prolactin level. He was discharged home in stable condition with neurology follow-up. Time Spent with Patient Time attestation: Total time spent providing and/or coordinating discharge services: 67 Exam Narrative: General: well appearing, appears stated age. HEENT: normocephalic, atraumatic. Mucous membranes moist. EOMI, PERRLA, bilateral sclera anicteric, no conjunctival injection. Neck supple without JVD, lymphadenopathy, or bruit. Respiratory: clear to auscultation bilaterally. No rales/rhonic/wheezes. Cardiovascular: Regular rate and rhythm, normal S1-S2 upon auscultation. No murmurs, rub
[2023-10-06 03:09] LABS: Prolactin 3.1 ng/mL (2.0-18.0)
== END 2023-10-04 17:14 | disposition home or self-care (01) ==
LOC: ANHED 21:01 → ANH3MEDSUR 22:20
PROVIDERS: Emergency Medicine; Admitting Provider Internal Medicine; Emergency Provider Emergency Medicine; PCP Nurse Practitioner; Visit Provider Nurse Practitioner Acute Care
DX: R55 Syncope and collapse (principal); G25.3 Myoclonus; R41.82 Altered mental status, unspecified; I12.9 Hypertensive chronic kidney disease with stage 1 through stage 4 chronic kidney disease, or unspecified chronic kidney disease; N18.30 Chronic kidney disease, stage 3 unspecified; E78.00 Pure hypercholesterolemia, unspecified; G47.33 Obstructive sleep apnea (adult) (pediatric); F31.9 Bipolar disorder, unspecified; Z79.899 Other long term (current) drug therapy
CPT/HCPCS: 36415; 36600; 70496; 70498; 70553; 71045; 80053; 80061; 80307; 81003; 82607; 82746; 82805; 82948; 83540; 83550; 83605; 83735; 84145; 84146; 84443; 84484; 85025; 85610; 85730; 93005; 93306; 95816; 96361; 96374; 99285; A9270; A9577; G0378; J1953; J7030; Q9967

== ENCOUNTER 2023-10-09 17:56 | Emergency (ER) | payer OTHER, SELFPAY ==
[2023-10-09] VITALS (8 sets, daily range): BP systolic 128–135; BP diastolic 60–80; PULSE 67–85; RESP 16–20; TEMP 36.8; O2SAT 95–98
--- NOTE | ~2023-10-09 | XR_ITS ---
EXAMINATION: XR chest 1V portable Exam Date/Time: 10/09/2023 18:30 CDT HISTORY: syncope Comparison: 10/02/2023. RESULT: Lines, tubes, and devices: None. Lungs and pleura: Clear. Cardiomediastinal silhouette: Stable. Other: No acute osseous or upper abdominal finding. IMPRESSION: No acute cardiopulmonary process. Reviewed, dictated and finalized at location K.
--- NOTE | ~2023-10-09 | CT_ITS ---
EXAMINATION: CT brain wo con DATE: 10/09/2023 18:57 INDICATION: syncope . TECHNIQUE: Computed tomography (CT) of the head was performed without intravenous contrast. The mA wa s adjusted according to patient size. Iterative reconstruction technique was employed. The dose-lengt h product was 605.33 mGy-cm. COMPARISON: 04/15/2023. FINDINGS: No acute intracranial hemorrhage or extra-axial fluid collection. No hydrocephalus, mass, or herniation. No acute ischemic infarct. Unremarkable dural venous sinus attenuation. No acute osseous abnormality. The aerated spaces are clear. Mild atrophy and chronic white matter change. Atherosclerotic intracranial calcification. Minimal rig ht basal ganglia calcification. IMPRESSION: No acute intracranial process. Reviewed, dictated and finalized at location K.
--- NOTE | 2023-10-09 18:08 | ECG_ITS ---
Test Date: 2023-10-09 18:06:32 Measurements Intervals [place] Rate: 82 P: 45 NV: 182 QRS: -20 QRSD: 102 T: 38 QT: 380 QTc: 446 Interpretive Statements SINUS RHYTHM INCOMPLETE RIGHT BUNDLE BRANCH BLOCK BASELINE WANDER- III, V1-V2 BORDERLINE ECG Compared to ECG 10/02/2023 18:12:21 NO SIGNIFICANT CHANGE Electronically Signed On 10-09-2023 18:20:26 CDT by Jose Savage D.O.
[2023-10-09 18:26] LABS: Basophils Percent Auto 0.4 % (0.2-1.2); Eosinophils Absolute Auto 0.1 K/mm3 (0-0.3); Eosinophils Percent Auto 2.3 % (0-4.4); Hematocrit 40.1 % (42.0-52.0); Hemoglobin 13.1 g/dL (14.0-18.0); Immature Granulocyte Absolute 0.01 K/mm3 (0.00-0.031); Immature Granulocyte Percent A 0.2 % (0-0.5); Lymphocytes Absolute Auto 1.51 K/mm3 (0.9-3.2); Lymphocytes Percent Auto 26.8 % (18.3-44.2); Mean Corpuscular HGB Conc 32.7 g/dl (32-36); Mean Corpuscular Hemoglobin 28.9 pg (26-34); Mean Corpuscular Volume 88.5 fl (80-100); Mean Platelet Volume 11.8 fl (7.4-10.4); Monocytes Absolute Auto 0.5 K/mm3 (0.1-0.6); Monocytes Percent Auto 8.7 % (2.6-8.5); Neutrophils Absolute Auto 3.5 K/mm3 (1.3-6.7); Neutrophils Percent Auto 61.6 % (45.5-73.1); Platelet Count Result 223 k/mm3 (150-375); Red Blood Count 4.53 M/mm3 (4.6-6.20); Red Cell Distribution Width 13.1 % (11.5-14.5); White Blood Count 5.6 K/mm3 (4.5-10.0)
[2023-10-09 18:36] LABS: INR 0.9; Prothrombin Time 12.6 Seconds (11.1-14.7)
[2023-10-09 18:37] LABS: Partial Thromboplastin Time 34.5 Seconds (22.3-36.8)
[2023-10-09 18:55] LABS: Procalcitonin < 0.0 ng/mL
[2023-10-09 18:57] LABS: Alanine Aminotransferase 22 U/L (6-50); Albumin Level 4.2 g/dL (3.5-5.1); Alkaline Phosphatase 148 U/L (38-126); Anion Gap 9 mmol/L (4-12); Aspartate Amino Transferase 22 U/L (17-59); Bilirubin,Total 0.4 mg/dL (0.2-1.3); Blood Urea Nitrogen 13 mg/dL (9-20); Calcium 8.9 mg/dL (8.4-10.2); Carbon Dioxide 25 mmol/L (22-30); Chloride 104 mmol/L (98-107); Estimated CRCL calculation 73 ml/min; Estimated Glomerular Filt Rate > 60; Glucose 161 mg/dL (65-110); Magnesium 2.3 mg/dL (1.6-2.3); Potassium 3.8 mmol/L (3.4-5.0); Sodium 138 mmol/L (137-145)
[2023-10-09 18:58] LABS: Lactic Acid Reflex 1.6 mmol/L (0.7-2.0)
[2023-10-09 18:59] LABS: Appearance Urine Clear (Clear); Bilirubin Urine Negative (Negative); Blood Urine Negative (Negative); Color Urine Yellow (Yellow); Glucose Urine UA Negative (Negative); Ketones Urine Negative (Negative); Leukocyte Esterase Ur Negative LEU/UL (Negative); Nitrate Urine Negative (Negative); Protein Urine Negative (Negative); Specific Grav Ur 1.007 (1.001-1.035); Urobilinogen Urine 0.2 mg/dL (<2.0)
[2023-10-09 19:10] LABS: Troponin I < 0.012 ng/mL (0.000-0.034)
[2023-10-09 19:15] LABS: Add Urine Microscopic? NO
--- NOTE | 2023-10-09 19:17 | ED.GENADULT ---
HPI - General Adult General Chief complaint: Seizure <Arslan Romero MD - Last Filed: 10/09/23 20:42> Stated complaint: ams <Arslan Romero MD - Last Filed: 10/09/23 20:42> Time Seen by Provider: 10/09/23 18:12 <Arslan Romero MD - Last Filed: 10/09/23 20:42> History of Present Illness HPI narrative: Patient is a 68-year-old gentleman who presents emergency department with chief complaint of altered mental status. The patient was recently in the hospital for altered mental status possible seizure had extensive workup done and seen by Neurology. The patient's Lamictal was increased while he was in the hospital and a baseline prolactin was drawn and patient was told to have a prolactin level drawn if he has another episode isn't back in the emergency department. Patient's family reports that he was at the table fell backwards had difficulty speaking and had some twitching movement in his arms. <Arslan Romero MD - Last Filed: 10/09/23 20:42> Related Data Home medications: Home Medications Medication Instructions Recorded Confirmed multivit with minerals-folic 1 tablet PO DAILY 04/18/21 10/02/23 acid-lycopene 0.4 mg-600 mcg tablet (Men's Daily Multivitamin-Mineral) quetiapine 100 mg tablet 400 mg PO QHS 07/09/23 10/02/23 buspirone 7.5 mg tablet 15 mg PO BID 09/08/23 10/02/23 metoprolol succinate 50 mg 50 mg PO DAILY 10/02/23 10/02/23 tablet,extended release 24 hr quetiapine 50 mg tablet 50 mg PO DAILY 10/02/23 10/02/23 <Arslan Romero MD - Last Filed: 10/09/23 20:42> Allergies/adverse reactions: Allergies Allergy/AdvReac Type Severity Reaction Status Date / Time No Known Allergies Allergy Unknown Verified 09/08/23 06:43 <Arslan Romero MD - Last Filed: 10/09/23 20:42> Review of Systems Review of Systems: A 10 system review of systems was completed on the patient and is negative except for what is stated in the HPI. Nursing and ancillary documentation was reviewed. <Arslan Romero MD - Last Filed: 10/09/23 20:42> [facility] Past Medical History Medical History: Medical History Chronic kidney disease, stage III (moderate) COVID-19 Dyspnea Essential hypertension FLAKITO (obstructive sleep apnea) Overweight (BMI 25.0-29.9) Pure hypercholesterolemia Tear of medial meniscus of left knee <Arslan Romero MD - Last Filed: 10/09/23 20:42> Surgical History Surgical History: Surgical History H/O repair of rotator cuff right shoulder scope - Mary History of arthroscopy of left knee Partial medial meniscectomy August 04, 2021 History of back surgery <Arslan Romero MD - Last Filed: 10/09/23 20:42> Family History Family History: Family History Father Depression Family history of alcoholism Family history of heart disease in male family member before age 55, Onset Age: 60 Patient's father is Family history of cardiovascular disease, Onset Age: 60 Sibling Depression Asthma Family history of rheumatoid arthritis Patient's sister is in good health Patient's sister is Mother Family history of malignant neoplasm of breast in first degree relative Family history of heart disease in male family member before age 55 Family history of malignant neoplasm of breast <Arslan Romero MD - Last Filed: 10/09/23 20:42> Social History Social History: Social History Smoking status: Never smoker Second hand tobacco smoke exposure: No Alcohol intake: never Substance use: never Substance use type: does not use Do You Feel Safe in your Home?: Yes Lack of Transport
[2023-10-12 15:43] LABS: Prolactin 23.2 ng/mL (2.0-18.0)
== END 2023-10-09 22:58 | disposition short-term general hospital (02) ==
PROVIDERS: Emergency Medicine; Emergency Provider Emergency Medicine; PCP Nurse Practitioner
DX: R56.9 Unspecified convulsions (principal); I12.9 Hypertensive chronic kidney disease with stage 1 through stage 4 chronic kidney disease, or unspecified chronic kidney disease; N18.30 Chronic kidney disease, stage 3 unspecified; Z79.899 Other long term (current) drug therapy
CPT/HCPCS: 36415; 70450; 71045; 80053; 81003; 83605; 83735; 84145; 84146; 84484; 85025; 85610; 85730; 93005; 99285

== ENCOUNTER 2024-03-08 08:18 | Outpatient (CLI) | payer OTHER, SELFPAY ==
[2024-03-08 12:47] LABS: Basophils Percent Auto 0.6 % (0.2-1.2); Eosinophils Absolute Auto 0.3 K/mm3 (0-0.3); Eosinophils Percent Auto 4.7 % (0-4.4); Hematocrit 48.2 % (42.0-52.0); Hemoglobin 15.8 g/dL (14.0-18.0); Immature Granulocyte Absolute 0.02 K/mm3 (0.00-0.031); Immature Granulocyte Percent A 0.4 % (0-0.5); Lymphocytes Absolute Auto 1.69 K/mm3 (0.9-3.2); Lymphocytes Percent Auto 31.9 % (18.3-44.2); Mean Corpuscular HGB Conc 32.8 g/dl (32-36); Mean Corpuscular Hemoglobin 30.2 pg (26-34); Mean Platelet Volume 10.6 fl (7.4-10.4); Monocytes Absolute Auto 0.5 K/mm3 (0.1-0.6); Monocytes Percent Auto 9.3 % (2.6-8.5); Neutrophils Absolute Auto 2.8 K/mm3 (1.3-6.7); Neutrophils Percent Auto 53.1 % (45.5-73.1); Platelet Count Result 250 k/mm3 (150-375); Red Blood Count 5.24 M/mm3 (4.6-6.20); Red Cell Distribution Width 13.6 % (11.5-14.5); White Blood Count 5.3 K/mm3 (4.5-10.0)
[2024-03-08 13:02] LABS: Cholesterol 167 mg/dL (0-200); HDL Direct 69 mg/dL; Triglycerides 87 mg/dL (<150)
[2024-03-08 13:21] LABS: Prostate Specific Antigen 7.6 ng/mL (< OR = 4.0)
[2024-03-08 13:23] LABS: LDL Cholesterol Direct 59 mg/dL
== END 2024-03-08 08:19 | disposition home or self-care (01) ==
PROVIDERS: Surgery; PCP Internal Medicine; Visit Provider Nurse Practitioner
DX: E78.5 Hyperlipidemia, unspecified (principal); R73.01 Impaired fasting glucose; E78.00 Pure hypercholesterolemia, unspecified; L72.9 Follicular cyst of the skin and subcutaneous tissue, unspecified; L08.9 Local infection of the skin and subcutaneous tissue, unspecified; Z12.5 Encounter for screening for malignant neoplasm of prostate
CPT/HCPCS: 36415; 80061; 84153; 85025; G0103

== ENCOUNTER 2024-03-21 00:45 | Day surgery (SDC) | payer OTHER, SELFPAY ==
[2024-03-08 14:44] VITALS: BMI 29.4
--- NOTE | 2024-03-08 14:57 | PC.NURSE ---
Report to the Outpatient Waiting Room, entrance under the green pavilion located off [facility], at time ___11:00am____ on date _03/21/24 . Planned Procedure Time: _1:00pm .? Time changes happen often and if your time is changed the preop area will call you the afternoon before. - You and your visitor will be asked to self-screen and do not enter if you have any COVID symptoms. Please call surgeon if you need to reschedule. - A mask is optional within the hospital at this time. Patients may have clear liquids (water, carbonated beverages, clear teas, apple juice) until 3 hours prior to surgery with a maximum of 20 ounces. - No food from midnight until time of surgery and no smoking. This includes no chewing gum, candy or mints.( 1000am) Take only the following medications with a SIP of water on the morning of surgery: __Buspirone, Metoprolol, Quetiaprine, and Lamictal. DO NOT STOP ANY OF YOUR OTHER PRESCRIPTION MEDICATIONS PRIOR TO SURGERY EXCEPT THE FOLLOWING Medications to discontinue per physician ___HOLD Multivitamin for 3 days prior per Anesthesia Date to take last dose___03/17/24 Please no make-up, nail slovenian, hairspray, perfume, deodorant, or body powder the day of surgery.? No jewelry (including any body piercings) or valuables the day of surgery, leave them at home.? Please take a shower or bath the night before, or the morning of, surgery with an antibacterial soap.? Wear comfortable, loose fitting clothing.? - Jewelry must be removed prior to entering the operating room.? Rings and piercings that are not removed may be cut off. - The hospital will not accept responsibility for valuables.? - Please leave all valuables, including medications, at home the day of surgery. If you are going home after surgery, a licensed jinrikisha driver must drive you home.? - NO public transportation without another adult if you receive anesthesia. - We recommend that an adult stay with you for 24 hours following discharge. - We also recommend that you do not drive, make important decision, drink alcoholic beverages, or take any drugs that were not prescribed by your health care provider for at least 24 hours after your discharge time. Follow any additional instructions given to you from your surgeon. Telephone instructions given to _Patient and asked if any additional questions and then verbalized understanding. Patient advised to call surgeon office or pre surgery nurse liaison [phone] if any additional questions.
[2024-03-21 10:44] VITALS: BP 136/81; PULSE 78; RESP 16; TEMP 36.8; O2SAT 99
--- NOTE | 2024-03-21 10:53 | WPDHPUPDATE1 ---
History and Physical Update Update Date/Time: 03/21/24 10:53 History and Physical has been reviewed, including an updated exam of the patient. There are NO changes in the patient's condition. Risks, benefits, and alternatives have been discussed and questions answered. Patient agrees to proceed with procedure.
--- NOTE | 2024-03-21 12:07 | P.PNAN_ITS ---
Anes - Initial Pre Proc Eval Procedure: Operation Date: 03/21/24 12:00 Proposed Procedures p Excision of Skin Cyst Back - Clifton Diaz MD Date/Time: 03/21/24 12:07 Surgeon: Clifton Diaz MD Pre Op Diagnosis: infected Skin Cyst Back Patient Data Age: 68 Gender: M Height: 1.88 m Weight: 102.8 kg Last Vital Signs Temp 36.8 C 03/21/24 10:44 Pulse 78 03/21/24 10:44 Resp 16 03/21/24 10:44 BP 136/81 03/21/24 10:44 Pulse Ox 99 03/21/24 10:44 O2 Del Method Room Air 03/21/24 10:44 Allergies Allergy/AdvReac Type Severity Reaction Status Date / Time No Known Allergies Allergy Unknown Verified 03/21/24 10:39 Home Medications ?Medication ?Instructions ?Recorded ?Confirmed ?Type multivit with minerals-folic 1 tablet PO DAILY 04/18/21 03/21/24 History acid-lycopene 0.4 mg-600 mcg tablet (Men's Daily Multivitamin-Mineral) buspirone 7.5 mg tablet 15 mg PO BID 09/08/23 03/21/24 History metoprolol succinate 50 mg 50 mg PO DAILY 10/02/23 03/21/24 History tablet,extended release 24 hr lamotrigine 100 mg tablet 250 mg (2.5 x 100 mg) PO BID #60 10/04/23 03/21/24 Rx (Lamictal) tabs quetiapine 100 mg tablet 350 mg PO QHS 12/01/23 03/21/24 History quetiapine 50 mg tablet 50 mg PO DAILY 12/01/23 03/21/24 History amitriptyline 25 mg tablet 25 mg PO QHS #90 tabs 02/23/24 03/21/24 Rx atorvastatin 20 mg tablet 20 mg PO DAILY #90 tabs 03/13/24 03/21/24 Rx Patient hx anesthesia problems: none Family hx anesthesia problems: none Results Review: All pre-operative results and documents have been reviewed as part of the pre- operative evaluation. [facility] Past Medical History Medical History Anxiety Muscle contraction headache Psychogenic nonepileptic seizure Seizure disorder COVID-19 Overweight (BMI 25.0-29.9) Tear of medial meniscus of left knee Dyspnea Chronic kidney disease, stage III (moderate) Essential hypertension FLAKITO (obstructive sleep apnea) Pure hypercholesterolemia Surgical History Surgical History History of arthroscopy of left knee Partial medial meniscectomy August 04, 2021 History of back surgery H/O repair of rotator cuff right shoulder scope - Mary Family History Family History Father Depression Family history of alcoholism Family history of heart disease in male family member before age 55, Onset Age: 60 Patient's father is Family history of cardiovascular disease, Onset Age: 60 Sibling Depression Asthma Family history of rheumatoid arthritis Patient's sister is in good health Patient's sister is Mother Family history of malignant neoplasm of breast in first degree relative Family history of heart disease in male family member before age 55 Family history of malignant neoplasm of breast Social History Social History Smoking status: Never smoker Second hand tobacco smoke exposure: No Alcohol intake: never Substance use: never Substance use type: does not use Do You Feel Safe in your Home?: Yes Lack of Transportation: No Lack of Food: Never True Current Housing: I Have Housing Concerned About Future Housing: No Difficulty Paying Gas/Electric Bills: No Difficulty Paying for Meds: No Currently Unemployed: No Education: Master's Degree or Higher Difficulty w/ Childcare or Family Care: No Living arrangements: with family Additional living arrangements comments: Occupation/Education: retired Gender identity (if verbalized by the patient): Male Spiritual care concerns: No Anes - Eval Final PreProcedure Day of Procedure 03/21/24 12:07 Patient weight: obese Heart: regular rate and rhythm Lungs: normal air movement Airway: Mallampati scale class 1 Neurological: alert and oriented ASA classification: III Emergent: no Anesthetic plan: proceed Anesthesia type and monitoring: general GIVS and standard monitoring Results Review: All pre-operative results and documents have been reviewed as part of the pre- operative evaluation. Informed Consent: The patient's anesthetic plan and its attendant risks and benefits were discussed with the patient/family/POA. Questions were solicited and answers provided to the satisfaction of the patient/family/POA.
[2024-03-21] MEDS: ceFAZolin 2 GM/D5W 50 ML 2 GM/50 ML BAG IVPB (12:26)
[2024-03-21] MEDS: BUPIVACAINE/EPINEPHRINE 0.5% 50 ML VIAL 30 ML INFILTRATE (12:47)
[2024-03-21 13:00] VITALS: BP 133/73; PULSE 70; RESP 16; O2SAT 99
[2024-03-21] MEDS: LACTATED RINGERS 1,000 ML 30 ML IV CONT (13:00)
--- NOTE | 2024-03-21 13:01 | P.OP_ITS ---
Procedure Note - Detailed Date of Procedure 03/21/24 Pre-op Diagnosis Skin Cyst Back Post-op Diagnosis Same Procedure Performed Excision 2.5 cm skin cyst of the right flank with 2 mm margins, 2.9 cm excision. 8 cm layered closure Surgeon Clifton Diaz MD Test Engine Mechanic Angelika Marie [facility] Anesthesia General (G IV S) Indications Patient had an infected cyst in the right posterolateral flank. It drained and improved with antibiotics. He still has a scar where the cyst is and would like to have the cyst removed to prevent recurrence. He is taken to surgery now for this purpose. Findings Scar and cyst remnant Description of Procedure Patient was checked in the preoperative holding area. He was taken to surgery and placed in the left lateral decubitus position. Anesthesia was introduced. Prep and drape was carried out. The proposed obliquely oriented ellipse was marked on the skin. Local was infiltrated into the skin and the deeper subcutaneous. Incision was made dissection was carried down through the skin and through the subcutaneous to stay outside of the cyst and scar from the cyst. We dissected the skin and the underlying cyst remnants from the subcutaneous and removed it. I measured the size of the cyst and scar. It was 2.5 cm. 2 mm margins had been taken. I measured the length of wound to be closed. It measured 8 cm. I used cautery for hemostasis. Sharron's fascia was closed with interrupted 3-0 Vicryl suture. 4-0 Vicryl subcuticular skin sutures were used to loosely approximate the skin. Skin was finally closed with a running 4-0 Monocryl skin suture. Wound was dressed with Exofin surgical adhesive. Patient was awakened and returned to a supine position. He was taken to outpatient surgery in good condition. Sponge and needle counts were correct x2. Estimated Blood Loss -5 Drains No Packing No Pathology Yes (Skin cyst right flank) Complications None Condition Stable Disposition Same day [facility] Billing Surgery - Charge Forward: Surgery Billing (Excision 2.5 cm skin cyst of the right flank with 2 mm margins, 2.9 cm excision. 8 cm layered closure)
[2024-03-21 13:30] VITALS: BP 141/89; PULSE 65; RESP 16
[2024-03-21 13:50] VITALS: BP 155/84; PULSE 63; RESP 14
== END 2024-03-21 13:58 | disposition home or self-care (01) ==
PROVIDERS: PCP Internal Medicine; Visit Provider Surgery
PROC: (CPT 11403; principal; 2024-03-21 12:00)
DX: L72.0 Epidermal cyst (principal)
CPT/HCPCS: 11403; 12034; 88305; J0690; J1171; J2003; J2250; J2405; J2704; J3010; J7120

== ENCOUNTER 2024-05-10 09:40 | Outpatient (CLI) | payer OTHER, SELFPAY ==
--- OUTSIDE RECORDS SUMMARY | 2024-05-10 10:22 | XMS_ITS | Clinical Summary ---
Author Organization [email or web address] Address [address] [place] [address] Care Team Providers Care Deli Manager Name Role Phone Will Bernal MD Primary Care Provider [phone] Source Comments [email or web address],non-owned Affiliates and Associated Physician Practices is amultiple site organization consisting of ambulatory clinics and hospital sitesin [place], [place], [place] and [place]. This disclosure is being madepursuant to the Care Everywhere program and may not contain all information available regarding this patient. Last updated 17.[email or web address] Allergies No known active allergies Medications * Be aware that medications may not be up to date on this document. Alwaysverify current medications with the patient. Medication Sig Dispensed Refills Start Date End Date Status atorvastatin (Lipitor) 20 MG tablet Take 1 (one) tablet by mouth at bedtime 06/12/2023 Active QUEtiapine (SEROquel) 100 MG tablet Take 0.5 (one-half) tablet by mouth 2 times daily 50 am, 350 p.m. Active busPIRone (Buspar) 15 MG tablet Take 1 (one) tablet by mouth 2 times daily Active metoprolol succinate XL 24hr (Toprol XL) 50 MG tablet Take 1 (one) tablet by mouth at bedtime 07/27/2023 Active lamoTRIgine (LaMICtal) 25 MG tablet Take 10 (ten) tablets by mouth 2 times daily Active clonazePAM (KlonoPIN) 0.5 MG tabletIndications:Ak athisia 1 tablets in the evening, once per day, for akathisia. Can repeat second tablet as needed. Do not use more than 2 tablets per day. 180 tablet 01/13/2024 Active Active Problems Problem Noted Date Diagnosed Date Seizures 01/04/2024 Immunizations Name Administration Dates Next Due INFLUENZA VACCINE, ADJUVANTE D, QUADR. (FLUAD QUADRIVALENT; 65Y+) (AIIV4) 01/11/2024 Social History Tobacco Use Types Packs/Day Years Used Date Smoking Tobacco: Never Smokeless Tobacco: Never Tobacco Cessation:Counseling Given: Not Answered Alcohol Use Standard Drinks/Week Comments Never 0 (1 standard drink = 0.6 oz pur e alcohol) AUDIT-C Answer Date Recorded Q1: How often do you have a drink containing alcohol? Never 01/10/2024 Q2: How many drinks containi ng alcohol do you have on a typical day when you are drinking? Patient does not drink Q3: How often do you have si x or more drinks on one occasion? Never 01/10/2024 Overall Financial Resource Strain (CARDIA) Answe r Date Recorded How hard is it for you to pa y for the very basics like food, housing, medical care, and heating? Not hard at all 01/10/2024 [facility] [place] [facility] - Occupational Stress Questionnaire Answer Date Recorded Do you feel stress - tense, restless, nervous, or anxious, or unable to sleep at night because your mind is troubled all the time - these days? Not at all 01/10/2024 Hunger Vital Sign Answer Date Recorded Within the past 12 months, y ou worried that your food would run out before you got the money to buy more. Never true 01/10/20 24 Within the past 12 months, t he food you bought just didn't last and you didn't have money to get more. Never true 01/10/2024 PRAPARE - Transportation Answer Date Re corded In the past 12 months, has l ack of transportation kept you from medical appointments or from getting medications? No 10/2023 In the past 12 months, has l ack of transportation kept you from meetings, work, or from getting things needed for daily living? No 01/10/2024 Housing Stability Vital Sign Answer Calvin e Recorded In the last 12 months, was t here a time when you were not able to pay the mortgage or rent on time? No 01/10/2024 In the last 12 months, how many places have you lived? 1 01/10/2024 In the last 12 months, was t here a time when you did not have a steady place to sleep or slept in a mcc (including now)? No 01/10/2024 Sex and Gender Information Value Date Recorded Sex Assigned at Not on file Gender Identity Not on file Sexual Orientation Not on file Last Filed Vital Signs Vital Sign Reading Time Taken Comments Blood Pressure 134/81 01/14/2024 8:05 PM CDT Pulse 63 01/14/2024 8:05 PM CDT Temperature 36.7 ??C (98.1 ??F) 01/14/2024 8:05 PM CD T Respiratory Rate 18 01/14/2024 4:20 PM CDT Oxygen Saturation 98% 01/14/2024 8:05 PM CDT Inhaled Oxygen Concentration - - Weight 99.8 kg (220 lb) 01/10/2024 10:07 AM CDT Height 185.4 cm (6' 1 ) 01/10/2024 10:07 AM CDT Body Mass Index 29.03 01/10/2024 10:07 AM CDT Plan of Treatment Health Maintenance Due Date Last Done Comments COLOGUARD (AGES 45-75) - COL ON CA SCREENING 1957 COLON MONITORING 1957 COLONOSCOPY - COLON CA SCREENING 1957 CT COLONOGRAPHY - COLON CA SCREENING 1957 Colorectal Cancer Screening 1957 FIT - COLON CA SCREENING 1957 FLEX SIG - COLON CA SCREENING 1957 HEPATITIS C SCREENING 03/23/1975 DTAP/TDAP/TD VACCINES (1 - Tdap) 1976 PNEUMOCOCCAL VACCINE 50+ (1 of 1 - PCV) 2007 ZOSTER VACCINE (1 of 2) 2007 COVID-19 VACCINE ( - 2023-2 5 season) 2023 DEPRESSION SCREENING 04/05/2024 MEDICARE AWV ? CALENDAR YEAR 2024 Respiratory Syncytial Virus (RSV) Vaccine Pt: or over 60 yrs (1 - 1-dose 75+ series) 2032 INFLUENZA VACCINE Completed 01/11/2024 HEPATITIS B VACCINE Aged Out No longe r eligible based on patient's age to complete this topic HIB VACCINE Aged Out No longer eligi ble based on patient's age to complete this topic HPV VACCINE Aged Out No longer eligi ble based on patient's age to complete this topic MENINGOCOCCAL (Group B) VACCINE Aged Out No longer eligible based on patient's age to complete this topic MENINGOCOCCAL VACCINE Aged Out No mustapha abundio eligible based on patient's age to complete this topic Advance Directives * Full Code (Latest Code Status on File) Date Activated Date Inactivated Comments 01/10/2024 10:58 AM 01/15/2024 1:21 PM Care Teams Deli Manager Relationship Specialty Start Date End Date Will Bernal MD [address] [place] [id number] PCP - General 05/08/22
--- OUTSIDE RECORDS SUMMARY | 2024-05-10 10:22 | XMS_ITS | Clinical Summary ---
Author Organization [address] Address [facility] [place] [address] Care Team Providers Care Customs Entry Clerk Name Role Phone Dylan Ayala NP Primary Care Provider [phone] Allergies No known active allergies Medications atorvastatin (LIPITOR) 20 mg tablet Take 1 tablet (20 mg total) by mouth daily 06/12/2023 Active busPIRone (BUSPAR) 15 mg tablet Take 1 tablet (15 mg total) by mouth 2 (two) times a day 07/13/2023 Active finasteride (PROSCAR) 5 mg tablet Take 1 tablet (5 mg total) by mouth daily 07/09/2023 Active ketoconazole (NIZORAL) 2 % shampoo APPLY TO FACE AND SCALP TWICE WEEKLY, LEAVE ON FOR 5 MINUTES BEFORE RINSING 07/30/2023 Active metoprolol XL (TOPROL-XL) 50 mg extended release tablet Take 1 tablet (50 mg total) by mouth daily 07/27/2023 Active tamsulosin (FLOMAX) 0.4 mg extended release capsule Take 1 capsule (0.4 mg total) by mouth daily 07/14/2023 Active vibegron 75 mg tablet Take 75 mg by mouth daily Active QUEtiapine (SEROquel) 50 mg tablet Take 1 tablet (50 mg total) by mouth daily Active QUEtiapine (SEROquel) 400 mg tabletIndicatio ns:depression Take 1 tablet (400 mg total) by mouth nightly Active lamoTRIgine (LaMICtal) 25 mg tabletIndicatio ns:patient states he is taking 250 mg in the am and 250 mg in the pm,, Take 10 tablets (250 mg total) by mouth 2 (two) times a day 600 tablet 11 10/12/2023 Active Active Problems Problem Noted Date Diagnosed Date Episode of shaking 10/10/2023 Hypertension 10/10/2023 Transient loss of consciousness 10/09/2023 Tachycardia, unspecified 08/26/2023 Family History Medical History Relation Name Comments Stroke Mother Relation Name Status Comments Mother Social History Tobacco Use Types Packs/Day Years Used Date Smoking Tobacco: Never Smokeless Tobacco: Never Tobacco Cessation:Counseling Given: Not Answered [facility] Utilities Answer Date Recorded In the past 12 months has th e electric, gas, oil, or water Frankly threatened to shut off services in your home? No 10/11/2023 Social Connection and Isolat ion Panel [NHANES] Answer Date Recorded In a typical week, how many times do you talk on the phone with family, friends, or neighbors? More than three times a week 10/11/2023 How often do you get togethe r with friends or relatives? More than three times a week 10/11/2023 How often do you attend chur ch or mosque services? 1 to 4 times per year 10/11/2023 Do you belong to any clubs o r organizations such as yazidi groups, unions, fraternal or athletic groups, or school groups? Yes 10/11/2023 How often do you attend meet ings of the clubs or organizations you belong to? 1 to 4 times per year 10/11/2023 Are you , , di vorced, , never , or living with a partner? 10/11/2023 Overall Financial Resource Strain (CARDIA) Answe r Date Recorded How hard is it for you to pa y for the very basics like food, housing, medical care, and heating? Not hard at all 10/11/2023 Hunger Vital Sign Answer Date Recorded Within the past 12 months, y ou worried that your food would run out before you got the money to buy more. Never true 10/11/19 24 Within the past 12 months, t he food you bought just didn't last and you didn't have money to get more. Never true 10/11/2023 PRAPARE - Transportation Answer Date Re corded In the past 12 months, has l ack of transportation kept you from medical appointments or from getting medications? No 11/2023 In the past 12 months, has l ack of transportation kept you from meetings, work, or from getting things needed for daily living? No 10/11/2023 Housing Stability Vital Sign Answer Calvin e Recorded In the last 12 months, was t here a time when you were not able to pay the mortgage or rent on time? No 10/11/2023 In the past 12 months, how m any times have you moved where you were living? 0 10/11/2023 At any time in the [facility], were you homeless or living in a halfway (including now)? No 10/11/2023 Personal Safety Answer Date Recorded Have you ever been in or are you currently in a harmful physical or emotional relationship or is someone making you feel afraid or unsafe? Denies 10/10/2023 Sex and Gender Information Value Date Recorded Sex Assigned at Not on file Legal Sex Male 9:15 AM CDT Gender Identity Not on file Sexual Orientation Not on file Obstetrics History Last Filed Vital Signs Vital Sign Reading Time Taken Comments Blood Pressure 118/72 10/12/2023 7:22 AM CDT Pulse 65 10/12/2023 7:22 AM CDT Temperature 36.7 ??C (98.1 ??F) 10/12/2023 7:22 AM CD T Respiratory Rate 18 10/12/2023 7:22 AM CDT Oxygen Saturation 92% 10/12/2023 7:22 AM CDT Inhaled Oxygen Concentration - - Weight 98.3 kg (216 lb 11.4 oz) 024 10:17 AM CDT Height 188 cm (6' 2.02 ) 10/11/2023 10: 17 AM CDT Body Mass Index 27.81 10/11/2023 10:17 AM CDT Plan of Treatment Health Maintenance Due Date Last Done Comments Colon Cancer Screening-Colonoscopy 1957 Depression Screening 1957 Hepatitis C Screening 1957 Prostate Cancer Screening-PSA 1957 Hepatitis B Screening 1975 Well Visit 65+ 2022 Covid-19 Vaccine (2023- 5 season) 2023 01/04/2023, 02/05/2022, 03/07/2021, Additional history exists Influenza Vaccine (#1) 2023 3, 02/05/2022, 03/07/2021, Additional history exists Fall Risk Assessment 10/11/2024 10/12/2023 DTaP/Tdap/Td Vaccine (2 - Td or Tdap) 06/05/2027 06/04/2017 Zoster Vaccine Completed 10/18/2017, 07/15/2017 Pneumococcal vaccine 65+ Completed 06/12/2022 Insurance [facility] Advance Directives For more information, please contact: [phone] * LIMITED - No CPR (Latest Code Status on File) Date Activated Date Inactivated Comments 10/10/2023 12:19 AM 10/12/2023 4:30 PM Question Answer Comments Provide aggressive medical m anagement before a full cardiopulmonary arrest occurs. Use antibiotics, IV Fluids, and medical treatment unless specifically selected below: No intubation * Full Code Date Activated Date Inactivated Comments 10/09/2023 11:57 PM 10/10/2023 12:19 AM Care Teams Customs Entry Clerk Relationship Specialty Start Date End Date Dylan Ayala NP [address] [place] [address] PCP - General Nurse Practitioner 08/26/23
--- OUTSIDE RECORDS SUMMARY | 2024-05-10 10:22 | XMS_ITS | Referral Summary ---
Author Organization [facility] Address [address] [place] [address] Care Team Providers Care Voice Data Communications Engineer Name Role Phone Will Bernal MD Primary Care Provider [phone] [facility],non-owned Affiliates and Associated Physician Practices is amultiple site organization consisting of ambulatory clinics and hospital sitesin [place], [place], [place] and [place]. This disclosure is being madepursuant to the Care Everywhere program and may not contain all information available regarding this patient. Last updated 17.[facility] Allergies No known active allergies Medications * [...] and heating? Not hard at all 01/10/2024 [facility] of Occupat ional Health - Occupational Stress [...] place to sleep or slept in a retirement (including now)? No 01/10/2024 Sex and Gender [...] Mass Index 29.03 01/10/2024 10:07 AM CDT Functional Status Functional Status Response Date of Assess ment Is person deaf or have serious hearing difficult y? No 01/10/2024 Is person blind or have serious difficulty seein g? No 01/10/2024 Does person have serious dif ficulty walking/climbing stairs? No 01/10/2024 Does person have difficulty dressing/bathing? No 01/10/2024 Does person have difficulty doing errands alone? No 01/10/2024 Cognitive Status Response Date of Assessm ent Does person have difficulty concentrating/remembering/making decisions? No 01/10/2024 Plan of Treatment Not on file Advance Directives * Full Code (Latest Code Status on File) Date Activated Date Inactivated Comments 01/10/2024 10:58 AM 01/15/2024 1:21 PM Care Teams Voice Data Communications Engineer Relationship Specialty Start Date End Date Will Bernal MD [address] [place] [address] PCP - General 05/08/22
--- OUTSIDE RECORDS SUMMARY | 2024-05-10 10:22 | XMS_ITS | Patient Health Summary ---
Author Organization [facility] Address [address] [place] [address] Care Team Providers Care Physician Aide Name Role Phone Will Bernal MD Primary Care Provider [phone] Note from [facility],non-owned Affiliates and Associated Physician Practices is amultiple site organization consisting of ambulatory clinics and hospital sitesin [place], [place], [place] and [place]. This disclosure is being madepursuant to the Care Everywhere program and may not contain all information available regarding this patient. Last updated 17.[facility] Allergies No known active allergies Medications * Be aware that medications may not be up to date on this document. Always verify current medications with the patient. * atorvastatin (Lipitor) 20 MG tablet(Started 06/12/2023) Take 1 (one) tablet by mouth at bedtime * QUEtiapine (SEROquel) 100 MG tablet Take 0.5 (one-half) tablet by mouth 2 times daily 50 am, 350 p.m. * busPIRone (Buspar) 15 MG tablet Take 1 (one) tablet by mouth 2 times daily * metoprolol succinate XL 24hr (Toprol XL) 50 MG tablet(Started 07/27/2023) Take 1 (one) tablet by mouth at bedtime * lamoTRIgine (LaMICtal) 25 MG tablet Take 10 (ten) tablets by mouth 2 times daily * clonazePAM (KlonoPIN) 0.5 MG tablet(Started 01/13/2024) 1 tablets in the evening, once per day, for akathisia. Can repeat second tablet as needed. Do not use more than 2 tablets per day. Active Problems Problem Noted Date Diagnosed Date Seizures 01/04/2024 Immunizations * INFLUENZA VACCINE, ADJUVANTED, QUADR. (FLUAD QUADRIVALENT; 65Y+) (AIIV4)(Given 01/11/2024) Social History Tobacco Use Types Packs/Day Years [...] and heating? Not hard at all 01/10/2024 [facility] Occupat ional Health - Occupational Stress [...] Mass Index 29.03 01/10/2024 10:07 AM CDT Procedures * IRON + TRANSFERRIN PANEL(Performed 01/12/2024) * FERRITIN(Performed 01/12/2024) * TSH REFLEX FREE T4(Performed 01/12/2024) * METHYLMALONIC ACID BLOOD(Performed 01/12/2024) * FOLATE(Performed 01/12/2024) * VITAMIN B12(Performed 01/12/2024) * COMPREHENSIVE METABOLIC PANEL(Performed 01/12/2024) * CBC W/O DIFFERENTIAL(Performed 01/12/2024) * LAMOTRIGINE LEVEL(Performed 01/10/2024) * COMPREHENSIVE METABOLIC PANEL(Performed 01/10/2024) * CBC W AUTO DIFFERENTIAL(Performed 01/10/2024) * DERMATOPATHOLOGY(Performed 05/08/2022) Performed for Neoplasm of uncertain behavior of skin Results * TSH REFLEX FREE T4 (01/12/2024 1:54 AM CDT) TSH 2.275 0.350 - 4.940 uIU/mL 01/12/2024 3:34 AM CDT [facility] Blood BLOOD SPECIMEN / Unknown Lab Venipuncture / Unknown 01/12/2024 1:54 AM CDT 01/12/2024 2:30 AM CDT Kuldip Ingram MD LAB - CHEMISTRY ORDERABLES Performing Organization Address [facility]/ZIP Co de Phone Number [address] [address], [facility] [phone] * METHYLMALONIC ACID BLOOD (01/12/2024 1:54 AM CDT) Methylmalonic Acid 0.11 0.00 - 0.40 umol/L 01/15/2024 9:11 PM CDT [employer] ([facility]) Comment: INTERPRETIVE INFORMATION: MMA Serum/Plasma, ?Vitamin B12 Status This test was developed and its performance characteristics determined by [facility]. It has not been cleared or approved by the US Food and Drug Administration. This test was performed in a CLIA certified laboratory and is intended for clinical purposes. Performed By: [facility] [address] [place] [address] Greenskeeper Laborer: Farhad Zhao MD, PhD CLIA Number: [id number] Blood BLOOD SPECIMEN / Unknown Lab Venipuncture / Unknown 01/12/2024 1:54 AM CDT 01/12/2024 2:22 AM CDT Kuldip Ingram MD LAB - CHEMISTRY ORDERABLES Performing Organization Address [facility] Co de Phone Number [facility]) [address] [place] [address] * CBC W/O DIFFERENTIAL (01/12/2024 1:54 AM CDT) WBC 6.3 4.0 - 10.7 x10E9/L 01/12/2024 2:44 AM CDT [facility] RBC Count 5.16 4.30 - 5.80 x10E12/L 01/12/2024 2:44 AM CDT [facility] Hemoglobin 14.9 13.3 - 17.5 g/dL 01/12/2024 2:44 AM [facility] Hematocrit 44.0 38.7 - 51.1 % 01/12/2024 2:44 AM [facility] MCV 85.3 80.0 - 98.0 fL 01/12/2024 2:44 AM [facility] MCH 28.9 26.7 - 33.6 pg 01/12/2024 2:44 AM [facility] MCHC 33.9 31.7 - 36.3 g/dL 01/12/2024 2:44 AM [facility] RDW-CV 13.4 11.3 - 14.8 % 01/12/2024 2:44 AM [facility] Platelet Count 186 150 - 420 x10E9/L 01/12/2024 2:44 AM [facility] MPV 10.2 7.8 - 11.4 fL 01/12/2024 2:44 AM [facility] Blood BLOOD SPECIMEN / Unknown Lab Venipuncture / Unknown 01/12/2024 1:54 AM CDT 01/12/2024 2:31 AM CDT Kuldip Ingram MD LAB - HEMATOLOG Y ORDERABLES [facility] [address] [place] [address], [facility] [phone] * (ABNORMAL) COMPREHENSIVE METABOLIC PANEL (01/12/2024 1:54 AM CDT) Only the most recent of2 resultswithin the time period is included. BUN 15 7 - 26 mg/dL 01/12/2024 3:07 AM [facility] Creatinine 1.13 0.71 - 1.16 mg/dL 01/12/2024 3:07 AM [facility] Sodium 136 136 - 145 mmol/L 01/12/2024 3:07 AM [facility] Potassium 3.7 3.5 - 4.5 mmol/L 01/12/2024 3:07 AM [facility] Chloride 107 98 - 107 mmol/L 01/12/2024 3:07 AM [facility] CO2 23 22 - 29 mmol/L 01/12/2024 3:07 AM [facility] Glucose 88 70 - 115 mg/dL 01/12/2024 3:07 AM [facility] Calcium 9.0 8.4 - 10.2 mg/dL 01/12/2024 3:07 AM [facility] Protein Total 6.6 6.0 - 8.3 g/dL 01/12/2024 3:07 AM [facility] Albumin 3.7 3.4 - 5.0 g/dL 01/12/2024 3:07 AM [facility] Bilirubin Total 0.6 0.2 - 1.2 mg/dL 01/12/2024 3:07 AM [facility] Alkaline Phosphatase 123 40 - 150 U/L 01/12/2024 3:07 AM [facility] ALT 23 5 - 55 U/L 01/12/2024 3:07 AM [facility] AST 16 5 - 34 U/L 01/12/2024 3:07 AM [facility] Anion Gap 6 6 - 16 01/12/2024 3:07 AM [facility] BUN/Creatinine Ratio 13 7 - 23 01/12/2024 3:07 AM [facility] Osmolality Calculated 282 275 - 295 mOsm/kg 01/12/2024 3:07 AM [facility] Albumin/Globulin Ratio 1.3 1.1 - 2.3 01/12/2024 3:07 AM [facility] eGFR by CKD-EPI 72(L) >=90 mL/min/1.7 3 m2 01/12/2024 3:07 AM [facility] Blood BLOOD SPECIMEN / Unknown Lab Venipuncture / Unknown 01/12/2024 1:54 AM CDT 01/12/2024 2:30 AM T Kuldip Ingram MD LAB - CHEMISTRY ORDERABLES [facility] [address] [place] [address], [facility] [phone] * FOLATE (01/12/2024 1:54 AM CDT) Folate 15.1 7.0 - 31.4 ng/mL 01/12/2024 3:34 AM CDT [facility] Blood BLOOD SPECIMEN / Unknown Lab Venipuncture / Unknown 01/12/2024 1:54 AM CDT 01/12/2024 2:30 AM CDT Kuldip Ingram MD LAB - CHEMISTRY ORDERABLES [address] [address], [place] [phone] * VITAMIN B12 (01/12/2024 1:54 AM CDT) Vitamin B12 488 213 - 816 pg/mL 01/12/2024 3:34 AM CDT [facility] Blood BLOOD SPECIMEN / Unknown Lab Venipuncture / Unknown 01/12/2024 1:54 AM CDT 01/12/2024 2:30 AM CDT Kuldip Ingram MD LAB - CHEMISTRY ORDERABLES [address] [address], [place] [phone] * IRON + TRANSFERRIN PANEL (01/12/2024 1:54 AM CDT) Iron 113 50 - 175 ug/dL 01/12/2024 2:51 AM CDT [facility] Transferrin 270 174 - 382 mg/dL 01/12/2024 2:51 AM CDT [facility] Transferrin Saturation % 33 16 - 50 % 01/12/2024 2:51 AM CDT [facility] TIBC Calculated 338 240 - 450 ug/dL 01/12/2024 2:51 AM CDT [facility] Blood BLOOD SPECIMEN / Unknown Lab Venipuncture / Unknown 01/12/2024 1:54 AM CDT 01/12/2024 2:22 AM CDT Kuldip Ingram MD LAB - CHEMISTRY ORDERABLES Performing Organization Address City/[facility]/ZIP Co de Phone Number [address] [address], [place] [phone] * FERRITIN (01/12/2024 1:54 AM CDT) Pathologist [facility] Ferritin 40 22 - 275 ng/mL 01/12/2024 3:08 AM CDT [facility] Blood BLOOD SPECIMEN / Unknown Lab Venipuncture / Unknown 01/12/2024 1:54 AM CDT 01/12/2024 2:22 AM CDT Kuldip Ingram MD LAB - CHEMISTRY ORDERABLES Performing Organization Address [facility] Co de Phone Number [address] [address], [place] [phone] * LAMOTRIGINE LEVEL (01/10/2024 11:34 AM CDT) [facility] Lamotrigine 12.9 3.0 - 15.0 ug/mL 01/11/2024 11:03 PM CDT [employer] ([facility]) Comment: INTERPRETIVE INFORMATION: ??Lamotrigine Therapeutic Range: ??3.0-15.0 ug/mL ?Toxic: ??Greater than or equal to 20 ug/mL Pharmacokinetics varies widely, particularly with co-medications and/or compromised renal function. ??Adverse effects may include dizziness, somnolence, nausea and vomiting. Performed By: [facility] [address] [place] [address] Greenskeeper Laborer: Farhad Zhao MD, PhD CLIA Number: [id number] Blood BLOOD SPECIMEN / Unknown Lab Venipuncture / Unknown 01/10/2024 11:34 AM CDT 01/10/2024 11:53 AM CDT Uriah Jaramillo SAFETY AND OCCUPATIONAL HEALTH MANAGER-CHEESEMAKING LABORER LAB - THERAPEUTIC DRUG MONITORING ORDERABLES Performing Organization Address [facility]/ZIP Co de Phone Number [employer]) [address] [place] [address], [facility] * (ABNORMAL) CBC W AUTO DIFFERENTIAL (01/10/2024 11:34 AM T) [facility] Signature WBC 5.7 4.0 - 10.7 x10E9/L 01/10/2024 12:08 PM [facility] RBC Count 5.01 4.30 - 5.80 x10E12/L 01/10/2024 12:08 PM [facility] Hemoglobin 14.7 13.3 - 17.5 g/dL 01/10/2024 12:08 PM [facility] Hematocrit 43.1 38.7 - 51.1 % 01/10/2024 12:08 PM [facility] MCV 86.0 80.0 - 98.0 fL 01/10/2024 12:08 PM [facility] MCH 29.3 26.7 - 33.6 pg 01/10/2024 12:08 PM [facility] MCHC 34.1 31.7 - 36.3 g/dL 01/10/2024 12:08 PM [facility] RDW-CV 13.8 11.3 - 14.8 % 01/10/2024 12:08 PM [facility] Platelet Count 181 150 - 420 x10E9/L 01/10/2024 12:08 PM [facility] MPV 10.3 7.8 - 11.4 fL 01/10/2024 12:08 PM [facility] Neutrophil % 63.7 41.0 - 74.0 % 01/10/2024 12:08 PM [facility] Lymphocyte % 21.7 17.0 - 47.0 % 01/10/2024 12:08 PM [facility] Monocyte % 11.1(H) 3.0 - 11.0 % 01/10/2024 12:08 PM [facility] Eosinophil % 2.8 0.0 - 7.0 % 01/10/2024 12:08 PM [facility] Basophil % 0.5 0.0 - 1.6 % 01/10/2024 12:08 PM [facility] Immature Granulocytes % 0.2 0.0 - 1.0 % 01/10/2024 12:08 PM CDT [facility] Neutrophil Absolute 3.62 1.60 - 7.50 x10E9/L 01/10/2024 12:08 PM CDT [facility] Lymphocyte Absolute 1.23 1.00 - 4.40 x10E9/L 01/10/2024 12:08 PM CDT [facility] Monocyte Absolute 0.63 0.15 - 1.00 x10E9/L 01/10/2024 12:08 PM CDT [facility] Eosinophil Absolute 0.16 0.00 - 0.60 x10E9/L 01/10/2024 12:08 PM CDT [facility] Basophil Absolute 0.03 0.00 - 0.13 x10E9/L 01/10/2024 12:08 PM CDT [facility] Blood BLOOD SPECIMEN / Unknown Lab Venipuncture / Unknown 01/10/2024 11:34 AM CDT 01/10/2024 12:00 PM CDT Uriah Jaramillo SAFETY AND OCCUPATIONAL HEALTH MANAGER-CHEESEMAKING LABORER LAB - HEMATOLOGY ORDERABLES Performing Organization Address [facility]/State/[facility] Co de Phone Number [facility] [address] [phone], [facility] [phone] * DERMATOPATHOLOGY (05/08/2022 12:00 AM DELIVERER FOOD) Case Report Dermatopathology Report ? Case: [id number] ? Authorizing Provider: ??Arielle Pettit PA-C ? Collected: ? 05/08/2022 12:00 AM ? Ordering Location: ? [facility] ?Received: ?05/08/2022 04:50 PM ? Pathologist: ? Jeannie Reaves MD ? Specimen: ?Skin, left inferior lateral forehead: Triangulation: 4 cm to left lateral canthus ? 3 3:20 PM [facility] Final Diagnosis Specimen A. SKIN, left inferior lateral forehead: Triangulation: 4 cm to left lateral canthus: BASAL CELL CARCINOMA, NODULAR TYPE (C44.319) 3 3:20 PM [facility] Clinical History Neoplasm of uncertain behavior vs Squamous Cell Carcinoma vs Actinic Keratosis 3 3:20 PM [facility] Gross Description Specimen A: Received is one formalin filled container labeled with the patient's name and designated left inferior lateral forehead: Triangulation: 4 cm to left lateral canthus. The specimen consists of a shave biopsy measuring 5x5x1 mm. Jar 0. 3 3:20 PM [facility] Microscopic Description Specimen A. SKIN, left inferior lateral forehead: Triangulation: 4 cm to left lateral canthus: Within the dermis there are aggregates of basaloid cells with a high nuclear to cytoplasmic ratio and peripheral palisading. 3 3:20 PM [facility] Disclaimer An external and internal positive and negative controls are appropriate for the histochemical, immunohistochemical and immunofluorescence stain(s) in this case (if any), except where stated explicitly. The performance characteristics of the stain(s) cited in this report were developed and its performance characteristic determined by the Dermatopathology Laboratory at [facility], directed by Dr. Sara Magana. These tests need not be, and therefore are not, approved by the [place] Food and Drug Administration. The tests are used for clinical purposes. Billing Codes Specimen Charges Stain Charges 18058 1 3 3:20 PM [facility] Embedded Images 3 3:20 PM [facility] Pathology/Cytolog y TISSUE SPECIMEN FROM SKIN / Unknown 05/08/2022 05/08/2022 4:50 PM DELIVERER FOOD Arielle Pettit PA-C LAB - PATHOLOGY/CYTO LOGY ORDERABLES DERMATOPATHOLOGY LABORATORY [facility] - Department of Dermatology [facility] [address] [place] [address], [address] [phone] Care Teams Physician Aide Relationship Specialty Start Date End Date Will Bernal MD [address] [facility] [address] [place] [address] PCP - General 05/08/22
--- OUTSIDE RECORDS SUMMARY | 2024-05-10 10:22 | XMS_ITS | Clinical Summary ---
Author Organization [facility] Address [facility] [place] [address] Care Team Providers Care Telephone Lineman Name Role Phone Unavailable Primary Care Provider Unavailabl e Social History Tobacco Use Types Packs/Day Years Used Date Smoking Tobacco: Never Assessed Sex and Gender Information Value Date Recorded Sex Assigned at Not on file Legal Sex Male 5:35 PM CDT Gender Identity Not on file Sexual Orientation Not on file Plan of Treatment Health Maintenance Due Date Last Done Comments Colorectal Cancer Screening Colonoscopy (10 Years) 1957 Hepatitis C 1975 DTaP, Tdap and Td Vaccines ( 1 - Tdap) 1976 Zoster Vaccines (1 of 2) 2007 Pneumococcal Vaccine: 65+ Ye ars (1 of 1 - PCV) 2022 COVID-19 Vaccine (1 - 2023-2 5 season) 2023 Influenza Adult (#1) 2024 RSV Immunization or 60+ Years (1 - 1-dose 75+ series) 2032 Meningococcal B Vaccine Aged Out No l onger eligible based on patient's age to complete this topic Meningococcal Vaccine Aged Out No mustapha abundio eligible based on patient's age to complete this topic RSV Immunizations Under 20 Months Aged Out No longer eligible based on patient's age to complete this topic
--- OUTSIDE RECORDS SUMMARY | 2024-05-10 10:22 | XMS_ITS | Encounter Summary ---
Author Organization [facility] Address [address] [place] [address] Care Team Providers Care Cutter Operator Helper Name Role Phone Will Bernal MD Primary Care Provider [phone] Encounter Details Date Type Department Care Team (Late st Contact Info) Description 01/04/2024 Telephone [facility] [address] [place] [address] Lonnie Florez, RN Social History Tobacco Use Types Packs/Day Years Used Date Smoking Tobacco: Never Assessed Sex and Gender Information Value Date Recorded Sex Assigned at Not on file Gender Identity Not on file Sexual Orientation Not on file documented as of this encounter Plan of Treatment Not on file documented as of this encounter Visit Diagnoses Not on filedocumented in this encounter Care Teams Cutter Operator Helper Relationship Specialty Start Date End Date Will Bernal MD [address] [place] [id number] PCP - General 05/08/22 documented as of this encounter
--- OUTSIDE RECORDS SUMMARY | 2024-05-10 10:22 | XMS_ITS | Referral Summary ---
Author Organization [facility] [address] [place] [address] Care Team Providers Care Wire Drawing Die Maker Name Role Phone Dylan Ayala NP Primary Care Provider [phone] Allergies No known active allergies Medications atorvastatin [...] loss of consciousness 10/09/2023 Tachycardia, unspecified 08/26/2023 Social History Tobacco Use Types Packs/Day Years Used Date Smoking Tobacco: Never Smokeless Tobacco: Never Tobacco Cessation:Counseling Given: Not Answered [facility] Utilities Answer Date Recorded In the past 12 months has th e [employer], [employer], oil, or water [employer] threatened to shut off services in your [...] often do you attend chur ch or temple services? 1 to 4 times per year 10/11/2023 Do you belong to any clubs o r organizations such as sabianist groups, unions, fraternal or athletic groups, or [...] any time in the past 12 m [facility], were you homeless or living in a half-way (including now)? No 10/11/2023 Personal Safety Answer [...] 10/11/2023 10:17 AM CDT Plan of Treatment Not on file Insurance [facility] Advance Directives For more information, please contact: [phone] * LIMITED - No CPR (Latest Code [...] 11:57 PM 10/10/2023 12:19 AM Care Teams Wire Drawing Die Maker Relationship Specialty Start Date End Date Dylan Ayala NP [address] [place] [address] PCP - General Nurse Practitioner 08/26/23
[2024-05-10 14:07] LABS: Basophils Percent Auto 0.5 % (0.2-1.2); Eosinophils Absolute Auto 0.3 K/mm3 (0-0.3); Eosinophils Percent Auto 4.9 % (0-4.4); Hematocrit 46.4 % (42.0-52.0); Hemoglobin 15.6 g/dL (14.0-18.0); Immature Granulocyte Absolute 0.01 K/mm3 (0.00-0.031); Immature Granulocyte Percent A 0.2 % (0-0.5); Mean Corpuscular HGB Conc 33.6 g/dl (32-36); Mean Corpuscular Hemoglobin 30.3 pg (26-34); Mean Corpuscular Volume 90.1 fl (80-100); Mean Platelet Volume 10.6 fl (7.4-10.4); Monocytes Absolute Auto 0.7 K/mm3 (0.1-0.6); Monocytes Percent Auto 11.9 % (2.6-8.5); Neutrophils Absolute Auto 2.7 K/mm3 (1.3-6.7); Neutrophils Percent Auto 47.5 % (45.5-73.1); Platelet Count Result 187 k/mm3 (150-375); Red Blood Count 5.15 M/mm3 (4.6-6.20); Red Cell Distribution Width 13.1 % (11.5-14.5); White Blood Count 5.7 K/mm3 (4.5-10.0)
[2024-05-10 15:07] LABS: Alanine Aminotransferase 34 U/L (6-50); Albumin Level 4.2 g/dL (3.5-5.1); Alkaline Phosphatase 203 U/L (38-126); Anion Gap 9 mmol/L (4-12); Aspartate Amino Transferase 45 U/L (17-59); Bilirubin,Total 0.5 mg/dL (0.2-1.3); Blood Urea Nitrogen 12 mg/dL (9-20); Calcium 9.3 mg/dL (8.4-10.2); Carbon Dioxide 30 mmol/L (22-30); Chloride 102 mmol/L (98-107); Estimated Glomerular Filt Rate > 60; Glucose 71 mg/dL (65-110); Potassium 4.7 mmol/L (3.4-5.0); Sodium 141 mmol/L (137-145)
== END 2024-05-10 09:41 | disposition home or self-care (01) ==
LOC: ANHGOSHLAB 09:41
PROVIDERS: PCP Internal Medicine; Visit Provider Internal Medicine
DX: R42 Dizziness and giddiness (principal); N18.30 Chronic kidney disease, stage 3 unspecified
CPT/HCPCS: 36415; 80053; 85025

== ENCOUNTER 2024-06-06 10:11 | Outpatient (CLI) | payer OTHER, SELFPAY ==
[2024-06-06 22:20] LABS: Prostate Specific Antigen 0.8 ng/mL (< OR = 4.0)
== END 2024-06-06 10:12 | disposition home or self-care (01) ==
PROVIDERS: PCP Internal Medicine; Visit Provider Internal Medicine
DX: R97.20 Elevated prostate specific antigen [PSA] (principal); Z12.5 Encounter for screening for malignant neoplasm of prostate
CPT/HCPCS: 36415; 84153

== ENCOUNTER 2024-08-08 12:32 | Outpatient (CLI) | payer OTHER, SELFPAY ==
--- OUTSIDE RECORDS SUMMARY | 2024-08-08 12:39 | XMS_ITS | Clinical Summary ---
Author Organization [facility] Address [facility] [place] [address] Care Team Providers Care Brim Stretching Machine Operator Name Role Phone Unavailable Primary Care Provider Unavailabl e Social History Tobacco Use Types Packs/Day Years Used Date Smoking Tobacco: Never Assessed Sex and Gender Information Value Date Recorded Sex Assigned at Not on file Legal Sex Male 5:35 PM CDT Gender Identity Not on file Sexual Orientation Not on file Plan of Treatment Upcoming Encounters Date Type Department Care Team (Late st Contact Info) Description 11/09/2024 9:20 AM CDT Office Visit [facility] - [address] [place] [id number] Mark Blancas MD [address] [place] [id number] Health Maintenance Due Date Last Done Comments Colorectal Cancer Screening Colonoscopy (10 Years) 1957 Hepatitis C 1975 DTaP, Tdap and Td Vaccines ( 1 - Tdap) 1976 Pneumococcal Vaccine: 50+ Ye ars (1 of 1 - PCV) 2007 Zoster Vaccines (1 of 2) 2007 COVID-19 Vaccine ( - 2023-2 5 season) 2023 RSV Immunization or 60+ Years (1 - [...]
--- OUTSIDE RECORDS SUMMARY | 2024-08-08 12:40 | XMS_ITS | Clinical Summary ---
Author Organization [facility] Address [address] [place] [address] Care Team Providers Care Food Equipment Service Technician Name Role Phone Will Bernal MD Primary Care Provider [phone] Source Comments [facility],non-owned Affiliates and Associated Physician Practices is amultiple site organization consisting of ambulatory clinics and hospital sitesin [place], [place], [place] and [place]. This disclosure is being madepursuant to the Care Everywhere program and may not contain all information available regarding this patient. Last updated 17.[facility] Allergies No known active allergies Medications * Be aware that medications may not be up to date on this document. Alwaysverify current medications with the patient. atorvastatin (Lipitor) 20 MG tablet Take 1 [...] times daily Active clonazePAM (KlonoPIN) 0.5 MG tabletIndicatio ns:Akathisia 1 tablets in the evening, once per day, for akathisia. Can repeat second tablet as needed. Do not use more than 2 tablets per day. 180 tablet 01/13/2024 Active Active Problems Problem Noted Date Diagnosed Date Seizures 01/04/2024 Immunizations Immunization Administration Dates Next Due INFLUENZA VACCINE, ADJUVANTE [...] and heating? Not hard at all 01/10/2024 [facility] - Occupational Stress [...] place to sleep or slept in a chcf (including now)? No 01/10/2024 Sex and Gender Information Value Date Recorded Sex Assigned at Not on file Legal Sex Male 11:00 AM [employer] Gender Identity Not on file Sexual Orientation Not on file Last Filed Vital Signs Vital Sign Reading Time Taken Comments Blood Pressure 134/81 01/14/2024 8:05 PM CDT Pulse 63 01/14/2024 8:05 PM CDT Temperature 36.7 C (98.1 F) 01/14/2024 8:05 PM CDT Respiratory Rate 18 01/14/2024 4:20 PM CDT [...] FLEX SIG - COLON CA SCREENING 1955 MEDICARE AWV 12 MONTHS 1955 HEPATITIS C SCREENING 03/23/1975 DTAP/TDAP/TD VACCINES (1 - Tdap) 1976 PNEUMOCOCCAL VACCINE 50+ (1 of 1 - PCV) 2007 ZOSTER VACCINE (1 of 2) 2007 COVID-19 VACCINE ( - 2023-2 5 season) 2023 DEPRESSION SCREENING 04/05/2024 Respiratory Syncytial Virus (RSV) Vaccine Pt: or [...] to complete this topic MENINGOCOCCAL (Group B) VACC INE SHARED DECISION-MAKING Aged Out No longer eligibl e based on patient's age to complete this topic MENINGOCOCCAL GROUPS A/C/Y/W VACCINE Aged Out No longer eligible b ased on patient's age to complete this topic Insurance [facility] MEDICARE [employer] SELF PAY NO INSURANCE Member Subscriber Plan / Payer (Ef fective for All Dates) Name:Luiza Griffiths Member ID:Not on file Relation to Subscriber:Not on file Name:LUIZA GRIFFITHS Subscriber ID:Not on file (Home) Address: [address] [place] [id number] Payer ID:Not on file Group ID:Not on file Type:Self Pay Address: [place], [place] Advance Directives * Full Code (Latest Code Status on File) Date Activated Date Inactivated Comments 01/10/2024 10:58 AM 01/15/2024 1:21 PM Care Teams Food Equipment Service Technician Relationship Specialty Start Date End Date Will Bernal MD [address] [facility] [address] [place] [address] PCP - General 05/08/22
--- OUTSIDE RECORDS SUMMARY | 2024-08-08 12:40 | XMS_ITS | Patient Health Record ---
Author Organization [facility] [place] Address [address] [place] [address] Care Team Providers Care Traffic Engineer Name Role Phone KathiaAlli beltran DO Primary Care Provider Radhames Mcfarland Unavailable [phone] Marcelle Peguero Unavailable [phone] Lanre Berry Unavailable [phone] Tierney Fong Unavailable [phone] Migration, Provider Unavailable Unavailable Allergies No Known Allergies Reason For Referral Reason TMS Diagnosis 1 Bipolar disorder, un specified (F31.9) Referring Provider First Name Nathaniel Referring Provider Last Name Rakesh MARTINES Referring Provider Speciality Family Med icine Referred Organization [facility] [employer] Referred Provider Lanre Berry Referred Address [address],[place], [place],[address], Referred Provider Specialty Nurse Joe mckinney Referral Priority Routine Medications Medication SIG (Take, Route, Frequency, Duration) Notes Start Date End Date Status LORazepam 1 MG Oral for 30 Days Not-Taking lamoTRIgine 200 MG 1 tablet Orally twice a day for 90 days ( 250mg twice daily) Active QUEtiapine Fumarate 100 MG 4 tablets Oral Once a day for 90 days take 0.5 tablet in morning and 3.5 tablet in the evening Active Metoprolol Succinate ER 50 MG 1 tablet Oral Once a day for 90 days Active clonazePAM 1 MG 1 tablet Oral Once a day for 30 days take at bedtime 07/19/2024 Active Vitamin B6 Active Metoprolol Succinate ER 100 MG TAKE 1 TABLET BY MOUTH EVERY DAY FOR 30 DAYS for 90 Active Atorvastatin Calcium 20 MG TAKE 1 TABLET BY MOUTH EVERY DAY Oral for 90 Days Active Amitriptyline HCl 25 MG 1 tablet at bedt jeremy Oral Once a day for 30 days Active QUEtiapine Fumarate 100 MG 4 TABLETS Ora l see sign for 30 days Active Tamsulosin HCl 0.4 MG Oral for 90 Days Not-Taking Metoprolol Succinate ER 25 MG Oral 08/20/2023 Not-Taking Trintellix 10 MG Oral for 30 Days Not-Taking Social History Tobacco Use: Social History Observation Description Date Details (start date - stop date) Never Smoker NA - NA Sex Assigned At : Social History Observation Description Sex Assigned At Male Tobacco Control (Standard) Question Answer Notes Tobacco use: Nonsmoker AUDIT-C (Standard) Question Answer Notes Did you have a drink containing alcohol in the p ast year? No Problems Problem Type SNOMED Code ICD Code Onset Dates Problem Status W/U Status Risk Notes Problem 720990567 Hyperprolactinem ia (E22.1) Active confirmed Problem Bipolar disorder (57331646) Bipolar disorder, unspecified (F31.9) Active confirmed Problem Mild recurrent major depression (28042177) Major depressive disorder, recurrent, mild (F33.0) Active confirmed Problem Severe recurrent major depression without psychotic features (40014467) Major depressive disorder, recurrent severe without psychotic features (F33.2) Active confirmed Problem Generalized anxiety disorder (87816076) Generalized anxiety disorder (F41.1) Active confirmed Problem Panic disorder (066901747) Panic disorder [episodic paroxysmal anxiety] (F41.0) Active confirmed Problem Panic disorder (904114898) Panic disorder [episodic paroxysmal anxiety] without agoraphobia (F41.0) Active confirmed Problem Akathisia (503589358) Akathisia (G25.71) Active confirmed Problem Mild recurrent major depression (90982649) Mild recurrent major depression (F33.0) Active confirmed Vital Signs Heart Rate 71 /min 07/19/2024 Blood pressure diastolic 86 mm Hg 07/19/2024 Height-cm 187.96 cm 07/19/2024 Weight-kg 104.33 kg 07/19/2024 Height 74.00 in 07/19/2024 Blood pressure systolic 147 mm Hg 07/19/2024 Weight 230.0 lbs 07/19/2024 BMI 29.53 kg/m2 07/19/2024 Encounters Encounter Location Date Provider Diagnosis [facility] [address] [place] [address] 08/31/2023 Provider Migration [facility], [facility] [address] [place] [address] 09/01/2023 Provider Migration [facility], [facility] [address] [place] [address] 09/02/2023 Provider Migration [facility], [facility] [address] [place] [address] 09/03/2023 Provider Migration [facility], [facility] [address] [place] [address] 09/15/2023 Thena Hetal Major depressive disorder, recurrent severe without psychotic features F33.2 [facility], [facility] [address] [place] [address] 08/09/2023 Radhames Leodan Major depressive disorder, recurrent severe without psychotic features F33.2 [facility], [facility] [address] [place] [address] 08/10/2023 Radhames Leodan Major depressive disorder, recurrent severe without psychotic features F33.2 [facility], [facility] [address] [place] [address] 08/11/2023 Radhames Leodan Major depressive disorder, recurrent severe without psychotic features F33.2 [facility], [facility] [address] [place] [address] 08/12/2023 Radhames Leodan Major depressive disorder, recurrent severe without psychotic features F33.2 [facility], [facility] [address] [place] [address] 08/13/2023 Radhames Leodan Major depressive disorder, recurrent severe without psychotic features F33.2 [facility], [facility] [address] [place] [address] 08/16/2023 Radhames Leodan Major depressive disorder, recurrent severe without psychotic features F33.2 [facility], [facility] [address] [place] [address] 08/17/2023 Radhames Leodan Major depressive disorder, recurrent severe without psychotic features F33.2 [facility], [facility] [address] [place] [address] 08/18/2023 Radhames Leodan Major depressive disorder, recurrent severe without psychotic features F33.2 [facility], [facility] [address] [place] [address] 08/19/2023 Radhames Leodan Major depressive disorder, recurrent severe without psychotic features F33.2 [facility], [facility] [address] [place] [address] 08/20/2023 Radhames Leodan Major depressive disorder, recurrent severe without psychotic features F33.2 [facility], [facility] [address] [place] [address] 08/23/2023 Radhames Leodan Major depressive disorder, recurrent severe without psychotic features F33.2 [facility], [facility] [address] [place] [address] 08/24/2023 Radhames Leodan Major depressive disorder, recurrent severe without psychotic features F33.2 [facility], [facility] [address] [place] [address] 08/25/2023 Radhames Leodan Major depressive disorder, recurrent severe without psychotic features F33.2 [facility], [facility] [address] [place] [address] 08/26/2023 Provider Migration [facility], [facility] [address] [place] [address] 08/27/2023 Provider Migration [facility], [facility] [address] [place] [address] 09/01/2023 Lanre Berry [facility], [facility] [address] [place] [address] 09/06/2023 Radhames Leodan Major depressive disorder, recurrent severe without psychotic features F33.2 [facility], [facility] [address] [place] [address] 09/07/2023 Radhames Leodan Major depressive disorder, recurrent severe without psychotic features F33.2 [facility], [facility] [address] [place] [address] 09/08/2023 Radhames Leodan Major depressive disorder, recurrent severe without psychotic features F33.2 [facility], [facility] [address] [place] [address] 09/09/2023 Radhames Leodan Major depressive disorder, recurrent severe without psychotic features F33.2 [facility], [facility] [address] [place] [address] 09/10/2023 Radhames Leodan Major depressive disorder, recurrent severe without psychotic features F33.2 [facility], [facility] [address] [place] [address] 09/13/2023 Radhames Leodan Major depressive disorder, recurrent severe without psychotic features F33.2 [facility], [facility] [address] [place] [address] 09/16/2023 Radhames Leodan Major depressive disorder, recurrent severe without psychotic features F33.2 [facility], [facility] [address] [place] [address] 09/17/2023 Radhames Leodan Major depressive disorder, recurrent severe without psychotic features F33.2 [facility], [facility] [address] [place] [address] 09/20/2023 Radhames Leodan Major depressive disorder, recurrent severe without psychotic features F33.2 [facility], [facility] [address] [place] [address] 09/22/2023 Radhames Leodan Major depressive disorder, recurrent severe without psychotic features F33.2 [facility], [facility] [address] [place] [address] 09/24/2023 Radhames Leodan Major depressive disorder, recurrent severe without psychotic features F33.2 [facility], [facility] [address] [place] [address] 09/27/2023 Radhames Leodan Major depressive disorder, recurrent severe without psychotic features F33.2 [facility], [facility] [address] [place] [address] 09/29/2023 Radhames Leodan Mild recurrent major depression F33.0 and Generalized anxiety disorder F41.1 [facility], [facility] [address] [place] [address] 09/29/2023 Radhames Leodan Major depressive disorder, recurrent severe without psychotic features F33.2 [facility], [facility] [address] [place] [address] 10/13/2023 Lanre Berry Generalized anxiety disorder F41.1 ; Major depressive disorder, recurrent, mild F33.0 and Panic disorder [episodic paroxysmal anxiety] F41.0 [facility] [address] [place] [address] 11/10/2023 Lanre Berry Generalized anxiety disorder F41.1 ; Panic disorder [episodic paroxysmal anxiety] without agoraphobia F41.0 ; Major depressive disorder, recurrent, mild F33.0 ; Other terminal superintendent (current) drug therapy Z79.899 and Hyperprolactinemia E22.1 [facility] [address] [facility] [address] [place] [address] 12/14/2023 Lanre Berry Generalized anxiety disorder F41.1 ; Panic disorder [episodic paroxysmal anxiety] without agoraphobia F41.0 ; Major depressive disorder, recurrent, mild F33.0 ; Other terminal superintendent (current) drug therapy Z79.899 ; Panic disorder [episodic paroxysmal anxiety] F41.0 and Elevated alkaline phosphatase level R74.8 [place] [address] [facility] [address] [place] [address] 01/17/2024 Lanre Berry Generalized anxiety disorder F41.1 ; Panic disorder [episodic paroxysmal anxiety] without agoraphobia F41.0 ; Major depressive disorder, recurrent, mild F33.0 ; Other senior living (current) drug therapy Z79.899 and Panic disorder [episodic paroxysmal anxiety] F41.0 [place] [address] [facility] [address] [place] [address] 02/24/2024 Lanre Berry Generalized anxiety disorder F41.1 ; Panic disorder [episodic paroxysmal anxiety] without agoraphobia F41.0 ; Major depressive disorder, recurrent, mild F33.0 ; Other senior living (current) drug therapy Z79.899 and Panic disorder [episodic paroxysmal anxiety] F41.0 [facility] [address] [facility] [address] [place] [address] 03/08/2024 Lanre Berry Hypertension, unspec ified type 401.9 ; Generalized anxiety disorder F41.1 ; Panic disorder [episodic paroxysmal anxiety] without agoraphobia F41.0 ; Major depressive disorder, recurrent, mild F33.0 ; Other terminal superintendent (current) drug therapy Z79.899 ; Panic disorder [episodic paroxysmal anxiety] F41.0 and Tardive dyskinesia G24.01 [facility] [address] [place] [address] 04/18/2024 Marcelle Peralta Major depressive disorder, recurrent severe without psychotic features F33.2 and Generalized anxiety disorder F41.1 [facility] [address] [place] [address] 04/21/2024 Lanre Berry Generalized anxiety disorder F41.1 ; Panic disorder [episodic paroxysmal anxiety] without agoraphobia F41.0 ; Major depressive disorder, recurrent, mild F33.0 ; Other senior living (current) drug therapy Z79.899 ; Panic disorder [episodic paroxysmal anxiety] F41.0 and Tardive dyskinesia G24.01 [facility] [address] [place] [address] 05/02/2024 Marcelle Peralta Generalized anxiety disorder F41.1 ; Panic disorder [episodic paroxysmal anxiety] without agoraphobia F41.0 and Major depressive disorder, recurrent, mild F33.0 [facility] [address] [place] [address] 05/16/2024 Marcelle Peralta Major depressive disorder, recurrent severe without psychotic features F33.2 and Generalized anxiety disorder F41.1 [facility] [address] [place] [address] 05/24/2024 Lanre Mannoza Generalized anxiety disorder F41.1 ; Panic disorder [episodic paroxysmal anxiety] without agoraphobia F41.0 ; Major depressive disorder, recurrent, mild F33.0 ; Other terminal superintendent (current) drug therapy Z79.899 ; Panic disorder [episodic paroxysmal anxiety] F41.0 and Tardive dyskinesia G24.01 [facility] [employer] [facility] [address] [place] [address] 05/30/2024 Marcelle Peralta Major depressive disorder, recurrent severe without psychotic features F33.2 ; Panic disorder [episodic paroxysmal anxiety] F41.0 and Generalized anxiety disorder F41.1 [facility] [address] [place] [address] 06/13/2024 Marcelle Peralta Major depressive disorder, recurrent severe without psychotic features F33.2 ; Generalized anxiety disorder F41.1 and Encounter for screening for depression Z13.31 [facility] [address] [facility] [address] [place] [address] 06/21/2024 Lanre Berry Encounter for screen ing for depression Z13.31 ; Encounter for screening for cardiovascular disorders Z13.6 ; Generalized anxiety disorder F41.1 ; Panic disorder [episodic paroxysmal anxiety] without agoraphobia F41.0 ; Major depressive disorder, recurrent, mild F33.0 ; Other senior living (current) drug therapy Z79.899 ; Panic disorder [episodic paroxysmal anxiety] F41.0 ; Tardive dyskinesia G24.01 and Akathisia G25.71 [facility] [address] [place] [address] 07/19/2024 Lanre Berry Encounter for screen ing for cardiovascular disorders Z13.6 ; Dietary counseling and surveillance Z71.3 ; Encounter for screening for depression Z13.31 ; Generalized anxiety disorder F41.1 ; Panic disorder [episodic paroxysmal anxiety] without agoraphobia F41.0 ; Major depressive disorder, recurrent, mild F33.0 ; Other senior living (current) drug therapy Z79.899 ; Panic disorder [episodic paroxysmal anxiety] F41.0 ; Tardive dyskinesia G24.01 and Akathisia G25.71 [facility] [employer], [facility] [address] [facility] [address] [place] [address] 08/02/2024 Marcelle Peralta Major depressive disorder, recurrent severe without psychotic features F33.2 ; Panic disorder [episodic paroxysmal anxiety] without agoraphobia F41.0 ; Generalized anxiety disorder F41.1 and Encounter for screening for depression Z13.31 [facility] [employer] [facility] [address] [facility] [address] [place] [address] 08/04/2024 Radhames [facility], [facility] [address] [place] [address] 08/08/2024 Radhames [facility], [facility] [address] [place] [address] 08/11/2023 Provider Migration [facility] [employer], [facility] [address] [place] [address] 08/21/2023 Provider Migration [facility] [employer] [facility] [address] [place] [address] 08/22/2023 Provider Migration [facility], [facility] [address] [place] [address] 11/22/2023 Lanre Berry [facility] [address] [place] [address] 02/24/2024 Larne Berry [facility] [address] [place] [address] 11/15/2023 Radhames Alcocer [facility] [address] [place] [address] 11/19/2023 Lanre Berry Assessments Encounter Date Diagnosis (ICD Code) Assessment Notes Treatment Notes Treatment Clinical Notes Section Notes 09/29/2023 Mild recurrent major depression (ICD-10 - F33.0) Depression and Anxiety - Assessment: Patient reports improvement in depressive and anxiety symptoms after completing 36 TMS treatments. No recent syncopal anxiety attacks or hospitalization s. - Plan: - Continue current medications: Lamotrigine, Trintellix, and BuSpar. - Follow up in one month to assess progress and adjust medications if needed. Sleep - Assessment: No significant changes reported in sleep patterns. - Plan: - Continue monitoring sleep and address any concerns in future visits. Medication Management - Plan: - Metoprolol ER 50 mg daily: Refill needed. - Quetiapine 100 mg: Filled on 09-20, monitor for refills. - Atorvastatin: Prescribed by Dylan, monitor for refills. - Ketoconazole shampoo: Monitor for refills. - BPH medication and BuSpar 15 mg twice a day: Refill needed. -Quetiapien 500 mg daily: Adjust morning dose to half tablet and maintain 400 mg at night. Revisit in one month to assess response. Tapering off quetiapine - Assessment: Patient expresses interest in tapering off quetiapine due to side effects. - Plan: - Decrease morning dose by 50 mg and monitor for increased anxiety. - If anxiety increases, consider taking 50 mg in the afternoon. - Reassess in one month and consider further tapering if tolerated. Follow-up Appointments - Plan: - Cancel appointment with Michael tomorrow, as patient saw Dr. Alcocer today. - Schedule follow-up appointment in one month to assess progress and adjust medications if needed. 10/13/2023 Major depressive disorder, recurrent, mild (ICD-10 - F33.0) 1. Cognitive pseudo seizures - Increase Lamotrigine to 250 mg twice a day - Continue monitoring seizure activity and report any changes - Schedule a follow-up appointment on October 28 2. Anxiety - Continue Buspar 15 mg twice a day - Continue Metoprolol 50 mg extended-releas e for anxiety management 3. Depression - Continue Quetiapine 450 mg daily (400 mg in the evening and 50 mg in the morning) - Monitor for any changes in mood or depressive symptoms 4. Cognitive problems - Refer to therapist (Marcelle) for cognitive-behav ioral therapy (CBT) - Monitor progress and improvement in cognitive function during follow-up appointments 5. Medication management - Refill Quetiapine as needed - Refill Metoprolol as needed - Ensure the addition of Buspar to the medication list 6. Possible trauma-related issues - Explore the possibility of trauma causing seizures with the therapist during CBT sessions - Monitor for any changes in symptoms or seizure activity related to trauma processing 10/13/2023 Generalized anxiety disorder (ICD-10 - F41.1) 1. Cognitive pseudo seizures - Increase Lamotrigine to 250 mg twice a day - Continue monitoring seizure activity and report any changes - Schedule a follow-up appointment on October 28 2. Anxiety - Continue Buspar 15 mg twice a day - Continue Metoprolol 50 mg extended-releas e for anxiety management 3. Depression - Continue Quetiapine 450 mg daily (400 mg in the evening and 50 mg in the morning) - Monitor for any changes in mood or depressive symptoms 4. Cognitive problems - Refer to therapist (Marcelle) for cognitive-behav ioral therapy (CBT) - Monitor progress and improvement in cognitive function during follow-up appointments 5. Medication management - Refill Quetiapine as needed - Refill Metoprolol as needed - Ensure the addition of Buspar to the medication list 6. Possible trauma-related issues - Explore the possibility of trauma causing seizures with the therapist during CBT sessions - Monitor for any changes in symptoms or seizure activity related to trauma processing 11/10/2023 Generalized anxiety disorder (ICD-10 - F41.1) 1. Elevated prolactin level - Prolactin level on 10-09-23 was 23.2, which is high, with an original baseline of 1.3. Plan: - Decrease quetiapine from 400 mg to 350 mg at bedtime. - Order labs to check prolactin level, thyroid function, creatinine level, comprehensive metabolic panel, and calcium levels. - Check follicle-stimul ating hormone, luteinizing hormone, estrogen, cortisol, growth hormone, and insulin-like growth factor. - Consider referral to an detective if necessary. - Follow up in one month. 2. Seizures and fainting episodes - Patient has a history of full-body convulsive seizures, non-epileptic pseudo-seizures , and fainting with involuntary leg movements. Plan: - Monitor for any changes in seizure frequency or severity. - Follow up with neurologist appointment on December 28. 3. Breast tenderness and large breasts - Patient reports breast tenderness but no discharge. Plan: - Monitor symptoms and correlate with prolactin levels. - Consider referral to an detective if necessary. 4. Sleep - Patient reports good sleep quality. Plan: - Continue to monitor sleep quality, especially with the decrease in quetiapine dosage. 5. Daughter's caregiver benefits - Daughter has documented caregiving one to two times per month through 03/28. Plan: - Complete and submit the necessary paperwork for the daughter's caregiver benefits. - Update documentation as needed. 11/10/2023 Panic disorder [episodic paroxysmal anxiety] without agoraphobia (ICD-10 - F41.0) 1. Elevated prolactin level - Prolactin level on 10-09-23 was 23.2, which is high, with an original baseline of 1.3. Plan: - Decrease quetiapine from 400 mg to 350 mg at bedtime. - Order labs to check prolactin level, thyroid function, creatinine level, comprehensive metabolic panel, and calcium levels. - Check follicle-stimul ating hormone, luteinizing hormone, estrogen, cortisol, growth hormone, and insulin-like growth factor. - Consider referral to an detective if necessary. - Follow up in one month. 2. Seizures and fainting episodes - Patient has a history of full-body convulsive seizures, non-epileptic pseudo-seizures , and fainting with involuntary leg movements. Plan: - Monitor for any changes in seizure frequency or severity. - Follow up with neurologist appointment on December 28. 3. Breast tenderness and large breasts - Patient reports breast tenderness but no discharge. Plan: - Monitor symptoms and correlate with prolactin levels. - Consider referral to an detective if necessary. 4. Sleep - Patient reports good sleep quality. Plan: - Continue to monitor sleep quality, especially with the decrease in quetiapine dosage. 5. Daughter's caregiver benefits - Daughter has documented caregiving one to two times per month through 03/28. Plan: - Complete and submit the necessary paperwork for the daughter's caregiver benefits. - Update documentation as needed. 12/14/2023 Generalized anxiety disorder (ICD-10 - F41.1) 1. Depression and Anxiety: - Continue current medications: Buspirone 15 mg twice a day for anxiety, Quetiapine 450 mg total (50 mg in the morning, 350 mg in the evening) for depression. Plan: - Monitor patient's mood and anxiety levels during follow-up visits. 2. Seizure Disorder: - Continue Lamotrigine 250 mg twice a day as prescribed by the neurologist at [place]. Plan: - Encourage the patient to keep a seizure diary to track seizure frequency and severity. - Await neurology consultation for further evaluation and management. 3. Sleep Disturbance: Plan: - Assess the impact of seizure activity on sleep quality. - Monitor the patient's sleep pattern during follow-up visits. 4. Elevated Alkaline Phosphatase: - Suspect Lamotrigine as the cause of elevated alkaline phosphatase (174 on 8-, 176 on 9-6). Plan: - Reassure the patient that the current elevation is not overly concerning and will be monitored. - Continue to monitor liver function tests during follow-up visits. Follow-up: - Schedule a follow-up appointment in one month to assess the patient's progress and review lab results. - Encourage the patient to contact the clinic if there are any concerns or changes in symptoms before the scheduled follow-up. 12/14/2023 Panic disorder [episodic paroxysmal anxiety] without agoraphobia (ICD-10 - F41.0) 1. Depression and Anxiety: - Continue current medications: Buspirone 15 mg twice a day for anxiety, Quetiapine 450 mg total (50 mg in the morning, 350 mg in the evening) for depression. Plan: - Monitor patient's mood and anxiety levels during follow-up visits. 2. Seizure Disorder: - Continue Lamotrigine 250 mg twice a day as prescribed by the neurologist at [place]. Plan: - Encourage the patient to keep a seizure diary to track seizure frequency and severity. - Await neurology consultation for further evaluation and management. 3. Sleep Disturbance: Plan: - Assess the impact of seizure activity on sleep quality. - Monitor the patient's sleep pattern during follow-up visits. 4. Elevated Alkaline Phosphatase: - Suspect Lamotrigine as the cause of elevated alkaline phosphatase (174 on 11-30, 176 on 12-09). Plan: - Reassure the patient that the current elevation is not overly concerning and will be monitored. - Continue to monitor liver function tests during follow-up visits. Follow-up: - Schedule a follow-up appointment in one month to assess the patient's progress and review lab results. - Encourage the patient to contact the clinic if there are any concerns or changes in symptoms before the scheduled follow-up. 01/17/2024 Generalized anxiety disorder (ICD-10 - F41.1) 1. Seizures (non-epileptic) : - Patient underwent a 6-day EEG at [facility], which determined that the seizures are not epileptic. - Patient was taken off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 the patient's response to the medication and any potential side effects. 4. Follow-up: - Cancel the patient's appointment on March 20. Plan: - Schedule a follow-up appointment in one month to assess the patient's response to Austedo XR and monitor the progression of tardive dyskinesia symptoms. - Encourage the patient to contact the provider if any issues or concerns arise before the next appointment. 01/17/2024 Panic disorder [episodic paroxysmal anxiety] without agoraphobia (ICD-10 - F41.0) 1. Seizures (non-epileptic) : - Patient underwent a 6-day EEG at [facility], which determined that the seizures are not epileptic. - Patient was taken off lamotrigine quickly, which initially led to seizures, but they subsided after a few days. 2. Akathisia: - Patient reports a leg-drinking problem, which was identified as akathisia. - Patient was previously on metoprolol for anxiety, which helped with this issue. - Currently on clonazepam, which is helping with leg movements, especially at night. Plan: - Continue clonazepam 0.5 mg once a day for akathisia and monitor for side effects. - Reassess tolerance to side effects in one month. 3. Anxiety: - Patient is currently on BuSpar 15 mg twice a day and metoprolol ER 50 mg once a day for anxiety management. - Patient reports that anxiety and mood are well-controlled . 4. Depression: - Patient is on lamotrigine 250 mg twice a day and quetiapine 100 mg tablets (half in the morning, three and a half in the evening) for depression management. - Patient had a positive response to TMS treatment. Plan: - Consider reducing lamotrigine dosage back to 200 mg twice a day if mood remains stable, as it is not being used for seizure management. - Monitor for any signs of depression relapse and consider TMS treatment if symptoms worsen. - Cancel the unnecessary 150 mg lamotrigine prescription and ensure the patient receives the correct dosages (200 mg and 25 mg tablets). 5. Follow-up: - Schedule a follow-up appointment in one month to assess medication tolerance and overall mental health status. 02/24/2024 Panic disorder [episodic paroxysmal anxiety] without agoraphobia (ICD-10 - F41.0) 1. Seizure disorder: - Patient reports ongoing seizure issues. - All brain and heart tests, including MRIs, CAT scans, EKGs, and EEGs, have come back normal. - Dr. Francis suggests the seizures may be due to emotional trauma and recommends therapy. Plan: - Continue current medications (lamotrigine 250 mg twice a day, quetiapine 100 mg [half in the morning, three halves in the evening], metoprolol, buspirone, and clonazepam). - Schedule the patient for therapy with Marcelle, who is completing EMDR training. 2. Emotional trauma: - Dr. Francis believes the patient's seizures may be related to emotional trauma. Plan: - Schedule the patient for EMDR therapy with Marcelle once she has completed her training. - Encourage the patient to attend therapy sessions regularly and monitor progress. 03/08/2024 Generalized anxiety disorder (ICD-10 - F41.1) 0 mg twice a day, quetiapine 100 mg [half in the morning, three halves in the evening], metoprolol, buspirone, and clonazepam). - Schedule the patient for therapy with Marcelle, who is completing EMDR training. 2. Emotional trauma: - Schedule the patient for EMDR therapy with Marcelle once she has completed her training. - Encourage the patient to attend therapy sessions regularly and monitor progress. 1. TMS efficacy concerns: - Patient reports concerns about the efficacy of TMS, as it has been around 6 months since the last treatment. - Patient is still experiencing seizures. Plan: - Continue to monitor the patient's condition and consult with neurologists as needed. 2. Akathisia: - Patient reports feelings of restlessness, nervousness, and constant movement of hands and feet. - No significant stress factors or medication changes have been identified. Plan: - Monitor the patient's symptoms and consider adjusting medications if necessary. 3. Tardive dyskinesia: - Patient exhibits involuntary movements, including toe movements, finger movements, tongue movements, and eyebrow movements. - These movements are consistent with tardive dyskinesia, which may be a side effect of the patient's antipsychotic medication (quetiapine) and previous exposure to Abilify. Plan: - Initiate treatment with Austedo XR (deutetrabenazi ne) for tardive dyskinesia. - Provide the patient with a starter pack and instructions for use. Austedo XR 12mg daily x 7 days then 18mg daily x 7 days then 24mg daily x 7 days then 30mg daily. - Monitor the patient's response to the medication and any potential side effects. 4. Follow-up: - Cancel the patient's appointment on March 20. Plan: - Schedule a follow-up appointment in one month to assess the patient's response to Austedo XR and monitor the progression of tardive dyskinesia symptoms. - Encourage the patient to contact the provider if any issues or concerns arise before the next appointment. 11/10/2023 Major depressive disorder, recurrent, mild (ICD-10 - F33.0) 1. Elevated prolactin level - Prolactin level on 10-09-23 was 23.2, which is high, with an original baseline of 1.3. Plan: - Decrease quetiapine from 400 mg to 350 mg at bedtime. - Order labs to check prolactin level, thyroid function, creatinine level, comprehensive metabolic panel, and calcium levels. - Check follicle-stimul ating hormone, luteinizing hormone, estrogen, cortisol, growth hormone, and insulin-like growth factor. - Consider referral to an detective if necessary. - Follow up in one month. 2. Seizures and fainting episodes - Patient has a history of full-body convulsive seizures, non-epileptic pseudo-seizures , and fainting with involuntary leg movements. Plan: - Monitor for any changes in seizure frequency or severity. - Follow up with neurologist appointment on December 28. 3. Breast tenderness and large breasts - Patient reports breast tenderness but no discharge. Plan: - Monitor symptoms and correlate with prolactin levels. - Consider referral to an detective if necessary. 4. Sleep - Patient reports good sleep quality. Plan: - Continue to monitor sleep quality, especially with the decrease in quetiapine dosage. 5. Daughter's caregiver benefits - Daughter has documented caregiving one to two times per month through 03/28. Plan: - Complete and submit the necessary paperwork for the daughter's caregiver benefits. - Update documentation as needed. 12/14/2023 Major depressive disorder, recurrent, mild (ICD-10 - F33.0) lamotrigine 250mg bid, quetiapine 100mg tablet- take 0.5 tablet in am, 3.5 tablet in pm 1. Depression and Anxiety: - Continue current medications: Buspirone 15 mg twice a day for anxiety, Quetiapine 450 mg total (50 mg in the morning, 350 mg in the evening) for depression. Plan: - Monitor patient's mood and anxiety levels during follow-up visits. 2. Seizure Disorder: - Continue Lamotrigine 250 mg twice a day as prescribed by the neurologist at [place]. Plan: - Encourage the patient to keep a seizure diary to track seizure frequency and severity. - Await neurology consultation for further evaluation and management. 3. Sleep Disturbance: Plan: - Assess the impact of seizure activity on sleep quality. - Monitor the patient's sleep pattern during follow-up visits. 4. Elevated Alkaline Phosphatase: - Suspect Lamotrigine as the cause of elevated alkaline phosphatase (174 on 11-30, 176 on 9-). Plan: - Reassure the patient that the current elevation is not overly concerning and will be monitored. - Continue to monitor liver function tests during follow-up visits. Follow-up: - Schedule a follow-up appointment in one month to assess the patient's progress and review lab results. - Encourage the patient to contact the clinic if there are any concerns or changes in symptoms before the scheduled follow-up. 10/13/2023 Panic disorder [episodic paroxysmal anxiety] (ICD-10 - F41.0) 1. Cognitive pseudo seizures - Increase Lamotrigine to 250 mg twice a day - Continue monitoring seizure activity and report any changes - Schedule a follow-up appointment on October 28 2. Anxiety - Continue Buspar 15 mg twice a day - Continue Metoprolol 50 mg extended-releas e for anxiety management 3. Depression - Continue Quetiapine 450 mg daily (400 mg in the evening and 50 mg in the morning) - Monitor for any changes in mood or depressive symptoms 4. Cognitive problems - Refer to therapist (Marcelle) for cognitive-behav ioral therapy (CBT) - Monitor progress and improvement in cognitive function during follow-up appointments 5. Medication management - Refill Quetiapine as needed - Refill Metoprolol as needed - Ensure the addition of Buspar to the medication list 6. Possible trauma-related issues - Explore the possibility of trauma causing seizures with the therapist during CBT sessions - Monitor for any changes in symptoms or seizure activity related to trauma processing 11/10/2023 Other senior living (current) drug therapy (ICD-10 - Z79.899) 1. Elevated prolactin level - Prolactin level on 10-09-23 was 23.2, which is high, with an original baseline of 1.3. Plan: - Decrease quetiapine from 400 mg to 350 mg at bedtime. - Order labs to check prolactin level, thyroid function, creatinine level, comprehensive metabolic panel, and calcium levels. - Check follicle-stimul ating hormone, luteinizing hormone, estrogen, cortisol, growth hormone, and insulin-like growth factor. - Consider referral to an detective if necessary. - Follow up in one month. 2. Seizures and fainting episodes - Patient has a history of full-body convulsive seizures, non-epileptic pseudo-seizures , and fainting with involuntary leg movements. Plan: - Monitor for any changes in seizure frequency or severity. - Follow up with neurologist appointment on December 28. 3. Breast tenderness and large breasts - Patient reports breast tenderness but no discharge. Plan: - Monitor symptoms and correlate with prolactin levels. - Consider referral to an detective if necessary. 4. Sleep - Patient reports good sleep quality. Plan: - Continue to monitor sleep quality, especially with the decrease in quetiapine dosage. 5. Daughter's caregiver benefits - Daughter has documented caregiving one to two times per month through 03/28. Plan: - Complete and submit the necessary paperwork for the daughter's caregiver benefits. - Update documentation as needed. 01/17/2024 Major depressive disorder, recurrent, mild (ICD-10 - F33.0) lamotrigine 250mg bid, quetiapine 100mg tablet- take 0.5 tablet in am, 3.5 tablet in pm 1. Seizures (non-epileptic) : - Patient underwent a 6-day EEG at [facility], which determined that the seizures are not epileptic. - Patient was taken off lamotrigine quickly, which initially led to seizures, but they subsided after a few days. 2. Akathisia: - Patient reports a leg-drinking problem, which was identified as akathisia. - Patient was previously on metoprolol for anxiety, which helped with this issue. - Currently on clonazepam, which is helping with leg movements, especially at night. Plan: - Continue clonazepam 0.5 mg once a day for akathisia and monitor for side effects. - Reassess tolerance to side effects in one month. 3. Anxiety: - Patient is currently on BuSpar 15 mg twice a day and metoprolol ER 50 mg once a day for anxiety management. - Patient reports that anxiety and mood are well-controlled . 4. Depression: - Patient is on lamotrigine 250 mg twice a day and quetiapine 100 mg tablets (half in the morning, three and a half in the evening) for depression management. - Patient had a positive response to TMS treatment. Plan: - Consider reducing lamotrigine dosage back to 200 mg twice a day if mood remains stable, as it is not being used for seizure management. - Monitor for any signs of depression relapse and consider TMS treatment if symptoms worsen. - Cancel the unnecessary 150 mg lamotrigine prescription and ensure the patient receives the correct dosages (200 mg and 25 mg tablets). 5. Follow-up: - Schedule a follow-up appointment in one month to assess medication tolerance and overall mental health status. 12/14/2023 Other terminal superintendent (current) drug therapy (ICD-10 - Z79.899) 1. Depression and Anxiety: - Continue current medications: Buspirone 15 mg twice a day for anxiety, Quetiapine 450 mg total (50 mg in the morning, 350 mg in the evening) for depression. Plan: - Monitor patient's mood and anxiety levels during follow-up visits. 2. Seizure Disorder: - Continue Lamotrigine 250 mg twice a day as prescribed by the neurologist at [place]. Plan: - Encourage the patient to keep a seizure diary to track seizure frequency and severity. - Await neurology consultation for further evaluation and management. 3. Sleep Disturbance: Plan: - Assess the impact of seizure activity on sleep quality. - Monitor the patient's sleep pattern during follow-up visits. 4. Elevated Alkaline Phosphatase: - Suspect Lamotrigine as the cause of elevated alkaline phosphatase (174 on 11-30, 176 on 9-). Plan: - Reassure the patient that the current elevation is not overly concerning and will be monitored. - Continue to monitor liver function tests during follow-up visits. Follow-up: - Schedule a follow-up appointment in one month to assess the patient's progress and review lab results. - Encourage the patient to contact the clinic if there are any concerns or changes in symptoms before the scheduled follow-up. 03/08/2024 Major depressive disorder, recurrent, mild (ICD-10 - F33.0) lamotrigine 250mg bid, quetiapine 100mg tablet- take 0.5 tablet in am, 3.5 tablet in pm 0 mg twice a day, quetiapine 100 mg [half in the morning, three halves in the evening], metoprolol, buspirone, and clonazepam). - Schedule the patient for therapy with Marcelle, who is completing EMDR training. 2. Emotional trauma: - Schedule the patient for EMDR therapy with Marcelle once she has completed her training. - Encourage the patient to attend therapy sessions regularly and monitor progress. 1. TMS efficacy concerns: - Patient reports concerns about the efficacy of TMS, as it has been around 6 months since the last treatment. - Patient is still experiencing seizures. Plan: - Continue to monitor the patient's condition and consult with neurologists as needed. 2. Akathisia: - Patient reports feelings of restlessness, nervousness, and constant movement of hands and feet. - No significant stress factors or medication changes have been identified. Plan: - Monitor the patient's symptoms and consider adjusting medications if necessary. 3. Tardive dyskinesia: - Patient exhibits involuntary movements, including toe movements, finger movements, tongue movements, and eyebrow movements. - These movements are consistent with tardive dyskinesia, which may be a side effect of the patient's antipsychotic medication (quetiapine) and previous exposure to Abilify. Plan: - Initiate treatment with Austedo XR (deutetrabenazi ne) for tardive dyskinesia. - Provide the patient with a starter pack and instructions for use. Austedo XR 12mg daily x 7 days then 18mg daily x 7 days then 24mg daily x 7 days then 30mg daily. - Monitor the patient's response to the medication and any potential side effects. 4. Follow-up: - Cancel the patient's appointment on March 20. Plan: - Schedule a follow-up appointment in one month to assess the patient's response to Austedo XR and monitor the progression of tardive dyskinesia symptoms. - Encourage the patient to contact the provider if any issues or concerns arise before the next appointment. 02/24/2024 Major depressive disorder, recurrent, mild (ICD-10 - F33.0) lamotrigine 250mg bid, quetiapine 100mg tablet- take 0.5 tablet in am, 3.5 tablet in pm 1. Seizure disorder: - Patient reports ongoing seizure issues. - All brain and heart tests, including MRIs, CAT scans, EKGs, and EEGs, have come back normal. - Dr. Francis suggests the seizures may be due to emotional trauma and recommends therapy. Plan: - Continue current medications (lamotrigine 250 mg twice a day, quetiapine 100 mg [half in the morning, three halves in the evening], metoprolol, buspirone, and clonazepam). - Schedule the patient for therapy with Marcelle, who is completing EMDR training. 2. Emotional trauma: - Dr. Francis believes the patient's seizures may be related to emotional trauma. Plan: - Schedule the patient for EMDR therapy with Marcelle once she has completed her training. - Encourage the patient to attend therapy sessions regularly and monitor progress. 04/21/2024 Major depressive disorder, recurrent, mild (ICD-10 - F33.0) lamotrigine 250mg bid, quetiapine 100mg tablet- take 0.5 tablet in am, 3.5 tablet in pm 05/24/2024 Major depressive disorder, recurrent, mild (ICD-10 - F33.0) lamotrigine 250mg bid, quetiapine 100mg tablet- take 0.5 tablet in am, 3.5 tablet in pm 06/13/2024 Encounter for screening for depression (ICD-10 - Z13.31) 05/02/2024 Major depressive disorder, recurrent, mild (ICD-10 - F33.0) 06/21/2024 Generalized anxiety disorder (ICD-10 - F41.1) 06/21/2024 Panic disorder [episodic paroxysmal anxiety] without agoraphobia (ICD-10 - F41.0) 07/19/2024 Encounter for screening for depression (ICD-10 - Z13.31) 09/29/2023 Generalized anxiety disorder (ICD-10 - F41.1) Learning About Generalized Anxiety Disorder material was published Depression and Anxiety - Assessment: Patient reports improvement in depressive and anxiety symptoms after completing 36 TMS treatments. No recent syncopal anxiety attacks or hospitalization s. - Plan: - Continue current medications: Lamotrigine, Trintellix, and BuSpar. - Follow up in one month to assess progress and adjust medications if needed. Sleep - Assessment: No significant changes reported in sleep patterns. - Plan: - Continue monitoring sleep and address any concerns in future visits. Medication Management - Plan: - Metoprolol ER 50 mg daily: Refill needed. - Quetiapine 100 mg: Filled on 18, monitor for refills. - Atorvastatin: Prescribed by Dylan, monitor for refills. - Ketoconazole shampoo: Monitor for refills. - BPH medication and BuSpar 15 mg twice a day: Refill needed. -Quetiapien 500 mg daily: Adjust morning dose to half tablet and maintain 400 mg at night. Revisit in one month to assess response. Tapering off quetiapine - Assessment: Patient expresses interest in tapering off quetiapine due to side effects. - Plan: - Decrease morning dose by 50 mg and monitor for increased anxiety. - If anxiety increases, consider taking 50 mg in the afternoon. - Reassess in one month and consider further tapering if tolerated. Follow-up Appointments - Plan: - Cancel appointment with Michael tomorrow, as patient saw Dr. Alcocer today. - Schedule follow-up appointment in one month to assess progress and adjust medications if needed. 07/19/2024 Generalized anxiety disorder (ICD-10 - F41.1) 06/21/2024 Major depressive disorder, recurrent, mild (ICD-10 - F33.0) lamotrigine 250mg bid, quetiapine 100mg tablet- take 0.5 tablet in am, 3.5 tablet in pm 05/24/2024 Other senior living (current) drug therapy (ICD-10 - Z79.899) clonazepam 0.5mg hs - by neurologist , amitriptylline by neurologist- reports amitryptyline helps with anxiety 04/21/2024 Other senior living (current) drug therapy (ICD-10 - Z79.899) clonazepam 0.5mg hs - by neurologist , amitriptylline by neurologist 02/24/2024 Other terminal superintendent (current) drug therapy (ICD-10 - Z79.899) clonazepam 0.5mg hs - by neurologist , amitriptylline by neurologist 1. Seizure disorder: - Patient reports ongoing seizure issues. - All brain and heart tests, including MRIs, CAT scans, EKGs, and EEGs, have come back normal. - Dr. Francis suggests the seizures may be due to emotional trauma and recommends therapy. Plan: - Continue current medications (lamotrigine 250 mg twice a day, quetiapine 100 mg [half in the morning, three halves in the evening], metoprolol, buspirone, and clonazepam). - Schedule the patient for therapy with Marcelle, who is completing EMDR training. 2. Emotional trauma: - Dr. Francis believes the patient's seizures may be related to emotional trauma. Plan: - Schedule the patient for EMDR therapy with Marcelle once she has completed her training. - Encourage the patient to attend therapy sessions regularly and monitor progress. 03/08/2024 Other terminal superintendent (current) drug therapy (ICD-10 - Z79.899) clonazepam 0.5mg hs - by neurologist , amitriptylline by neurologist 0 mg twice a day, quetiapine 100 mg [half in the morning, three halves in the evening], metoprolol, buspirone, and clonazepam). - Schedule the patient for therapy with Marcelle, who is completing EMDR training. 2. Emotional trauma: - Schedule the patient for EMDR therapy with Marcelle once she has completed her training. - Encourage the patient to attend therapy sessions regularly and monitor progress. 1. TMS efficacy concerns: - Patient reports concerns about the efficacy of TMS, as it has been around 6 months since the last treatment. - Patient is still experiencing seizures. Plan: - Continue to monitor the patient's condition and consult with neurologists as needed. 2. Akathisia: - Patient reports feelings of restlessness, nervousness, and constant movement of hands and feet. - No significant stress factors or medication changes have been identified. Plan: - Monitor the patient's symptoms and consider adjusting medications if necessary. 3. Tardive dyskinesia: - Patient exhibits involuntary movements, including toe movements, finger movements, tongue movements, and eyebrow movements. - These movements are consistent with tardive dyskinesia, which may be a side effect of the patient's antipsychotic medication (quetiapine) and previous exposure to Abilify. Plan: - Initiate treatment with Austedo XR (deutetrabenazi ne) for tardive dyskinesia. - Provide the patient with a starter pack and instructions for use. Austedo XR 12mg daily x 7 days then 18mg daily x 7 days then 24mg daily x 7 days then 30mg daily. - Monitor the patient's response to the medication and any potential side effects. 4. Follow-up: - Cancel the patient's appointment on March 20. Plan: - Schedule a follow-up appointment in one month to assess the patient's response to Austedo XR and monitor the progression of tardive dyskinesia symptoms. - Encourage the patient to contact the provider if any issues or concerns arise before the next appointment. 12/14/2023 Panic disorder [episodic paroxysmal anxiety] (ICD-10 - F41.0) 1. Depression and Anxiety: - Continue current medications: Buspirone 15 mg twice a day for anxiety, Quetiapine 450 mg total (50 mg in the morning, 350 mg in the evening) for depression. Plan: - Monitor patient's mood and anxiety levels during follow-up visits. 2. Seizure Disorder: - Continue Lamotrigine 250 mg twice a day as prescribed by the neurologist at [place]. Plan: - Encourage the patient to keep a seizure diary to track seizure frequency and severity. - Await neurology consultation for further evaluation and management. 3. Sleep Disturbance: Plan: - Assess the impact of seizure activity on sleep quality. - Monitor the patient's sleep pattern during follow-up visits. 4. Elevated Alkaline Phosphatase: - Suspect Lamotrigine as the cause of elevated alkaline phosphatase (174 on 11-30, 176 on 12-09). Plan: - Reassure the patient that the current elevation is not overly concerning and will be monitored. - Continue to monitor liver function tests during follow-up visits. Follow-up: - Schedule a follow-up appointment in one month to assess the patient's progress and review lab results. - Encourage the patient to contact the clinic if there are any concerns or changes in symptoms before the scheduled follow-up. 01/17/2024 Other terminal superintendent (current) drug therapy (ICD-10 - Z79.899) clonazepam 0.5mg hs - by neurologist 1. Seizures (non-epileptic) : - Patient underwent a 6-day EEG at [facility], which determined that the seizures are not epileptic. - Patient was taken off lamotrigine quickly, which initially led to seizures, but they subsided after a few days. 2. Akathisia: - Patient reports a leg-drinking problem, which was identified as akathisia. - Patient was previously on metoprolol for anxiety, which helped with this issue. - Currently on clonazepam, which is helping with leg movements, especially at night. Plan: - Continue clonazepam 0.5 mg once a day for akathisia and monitor for side effects. - Reassess tolerance to side effects in one month. 3. Anxiety: - Patient is currently on BuSpar 15 mg twice a day and metoprolol ER 50 mg once a day for anxiety management. - Patient reports that anxiety and mood are well-controlled . 4. Depression: - Patient is on lamotrigine 250 mg twice a day and quetiapine 100 mg tablets (half in the morning, three and a half in the evening) for depression management. - Patient had a positive response to TMS treatment. Plan: - Consider reducing lamotrigine dosage back to 200 mg twice a day if mood remains stable, as it is not being used for seizure management. - Monitor for any signs of depression relapse and consider TMS treatment if symptoms worsen. - Cancel the unnecessary 150 mg lamotrigine prescription and ensure the patient receives the correct dosages (200 mg and 25 mg tablets). 5. Follow-up: - Schedule a follow-up appointment in one month to assess medication tolerance and overall mental health status. 11/10/2023 Hyperprolactinemia (ICD-10 - E22.1) 1. Elevated prolactin level - Prolactin level on 10-09-23 was 23.2, which is high, with an original baseline of 1.3. Plan: - Decrease quetiapine from 400 mg to 350 mg at bedtime. - Order labs to check prolactin level, thyroid function, creatinine level, comprehensive metabolic panel, and calcium levels. - Check follicle-stimul ating hormone, luteinizing hormone, estrogen, cortisol, growth hormone, and insulin-like growth factor. - Consider referral to an detective if necessary. - Follow up in one month. 2. Seizures and fainting episodes - Patient has a history of full-body convulsive seizures, non-epileptic pseudo-seizures , and fainting with involuntary leg movements. Plan: - Monitor for any changes in seizure frequency or severity. - Follow up with neurologist appointment on December 28. 3. Breast tenderness and large breasts - Patient reports breast tenderness but no discharge. Plan: - Monitor symptoms and correlate with prolactin levels. - Consider referral to an detective if necessary. 4. Sleep - Patient reports good sleep quality. Plan: - Continue to monitor sleep quality, especially with the decrease in quetiapine dosage. 5. Daughter's caregiver benefits - Daughter has documented caregiving one to two times per month through 03/28. Plan: - Complete and submit the necessary paperwork for the daughter's caregiver benefits. - Update documentation as needed. 08/02/2024 Encounter for screening for depression (ICD-10 - Z13.31) 01/17/2024 Panic disorder [episodic paroxysmal anxiety] (ICD-10 - F41.0) 1. Seizures (non-epileptic) : - Patient underwent a 6-day EEG at [facility], which determined that the seizures are not epileptic. - Patient was taken off lamotrigine quickly, which initially led to seizures, but they subsided after a few days. 2. Akathisia: - Patient reports a leg-drinking problem, which was identified as akathisia. - Patient was previously on metoprolol for anxiety, which helped with this issue. - Currently on clonazepam, which is helping with leg movements, especially at night. Plan: - Continue clonazepam 0.5 mg once a day for akathisia and monitor for side effects. - Reassess tolerance to side effects in one month. 3. Anxiety: - Patient is currently on BuSpar 15 mg twice a day and metoprolol ER 50 mg once a day for anxiety management. - Patient reports that anxiety and mood are well-controlled . 4. Depression: - Patient is on lamotrigine 250 mg twice a day and quetiapine 100 mg tablets (half in the morning, three and a half in the evening) for depression management. - Patient had a positive response to TMS treatment. Plan: - Consider reducing lamotrigine dosage back to 200 mg twice a day if mood remains stable, as it is not being used for seizure management. - Monitor for any signs of depression relapse and consider TMS treatment if symptoms worsen. - Cancel the unnecessary 150 mg lamotrigine prescription and ensure the patient receives the correct dosages (200 mg and 25 mg tablets). 5. Follow-up: - Schedule a follow-up appointment in one month to assess medication tolerance and overall mental health status. 12/14/2023 Elevated alkaline phosphatase level (ICD-10 - R74.8) monitor, may be caused by Lamotrigine 1. Depression and Anxiety: - Continue current medications: Buspirone 15 mg twice a day for anxiety, Quetiapine 450 mg total (50 mg in the morning, 350 mg in the evening) for depression. Plan: - Monitor patient's mood and anxiety levels during follow-up visits. 2. Seizure Disorder: - Continue Lamotrigine 250 mg twice a day as prescribed by the neurologist at [place]. Plan: - Encourage the patient to keep a seizure diary to track seizure frequency and severity. - Await neurology consultation for further evaluation and management. 3. Sleep Disturbance: Plan: - Assess the impact of seizure activity on sleep quality. - Monitor the patient's sleep pattern during follow-up visits. 4. Elevated Alkaline Phosphatase: - Suspect Lamotrigine as the cause of elevated alkaline phosphatase (174 on 11-30, 176 on 12-09). Plan: - Reassure the patient that the current elevation is not overly concerning and will be monitored. - Continue to monitor liver function tests during follow-up visits. Follow-up: - Schedule a follow-up appointment in one month to assess the patient's progress and review lab results. - Encourage the patient to contact the clinic if there are any concerns or changes in symptoms before the scheduled follow-up. 03/08/2024 Panic disorder [episodic paroxysmal anxiety] (ICD-10 - F41.0) 0 mg twice a day, quetiapine 100 mg [half in the morning, three halves in the evening], metoprolol, buspirone, and clonazepam). - Schedule the patient for therapy with Marcelle, who is completing EMDR training. 2. Emotional trauma: - Schedule the patient for EMDR therapy with Marcelle once she has completed her training. - Encourage the patient to attend therapy sessions regularly and monitor progress. 1. TMS efficacy concerns: - Patient reports concerns about the efficacy of TMS, as it has been around 6 months since the last treatment. - Patient is still experiencing seizures. Plan: - Continue to monitor the patient's condition and consult with neurologists as needed. 2. Akathisia: - Patient reports feelings of restlessness, nervousness, and constant movement of hands and feet. - No significant stress factors or medication changes have been identified. Plan: - Monitor the patient's symptoms and consider adjusting medications if necessary. 3. Tardive dyskinesia: - Patient exhibits involuntary movements, including toe movements, finger movements, tongue movements, and eyebrow movements. - These movements are consistent with tardive dyskinesia, which may be a side effect of the patient's antipsychotic medication (quetiapine) and previous exposure to Abilify. Plan: - Initiate treatment with Austedo XR (deutetrabenazi ne) for tardive dyskinesia. - Provide the patient with a starter pack and instructions for use. Austedo XR 12mg daily x 7 days then 18mg daily x 7 days then 24mg daily x 7 days then 30mg daily. - Monitor the patient's response to the medication and any potential side effects. 4. Follow-up: - Cancel the patient's appointment on March 20. Plan: - Schedule a follow-up appointment in one month to assess the patient's response to Austedo XR and monitor the progression of tardive dyskinesia symptoms. - Encourage the patient to contact the provider if any issues or concerns arise before the next appointment. 02/24/2024 Panic disorder [episodic paroxysmal anxiety] (ICD-10 - F41.0) 1. Seizure disorder: - Patient reports ongoing seizure issues. - All brain and heart tests, including MRIs, CAT scans, EKGs, and EEGs, have come back normal. - Dr. Francis suggests the seizures may be due to emotional trauma and recommends therapy. Plan: - Continue current medications (lamotrigine 250 mg twice a day, quetiapine 100 mg [half in the morning, three halves in the evening], metoprolol, buspirone, and clonazepam). - Schedule the patient for therapy with Marcelle, who is completing EMDR training. 2. Emotional trauma: - Dr. Francis believes the patient's seizures may be related to emotional trauma. Plan: - Schedule the patient for EMDR therapy with Marcelle once she has completed her training. - Encourage the patient to attend therapy sessions regularly and monitor progress. 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) drug therapy (ICD-10 - Z79.899) clonazepam 0.5mg hs - by neurologist , amitriptylline by neurologist 06/21/2024 Panic disorder [episodic paroxysmal anxiety] (ICD-10 - F41.0) 07/19/2024 Major depressive disorder, recurrent, mild (ICD-10 - F33.0) lamotrigine 250mg bid, quetiapine 100mg tablet- take 0.5 tablet in am, 3.5 tablet in pm 04/21/2024 Tardive dyskinesia (ICD-10 - G24.01) 03/08/24 AIMS SCORE=22 05/24/2024 Tardive dyskinesia (ICD-10 - G24.01) 03/08/24 AIMS SCORE=22 03/08/2024 Tardive dyskinesia (ICD-10 - G24.01) 03/08/24 AIMS SCORE=22 0 mg twice a day, quetiapine 100 mg [half in the morning, three halves in the evening], metoprolol, buspirone, and clonazepam). - Schedule the patient for therapy with Marcelle, who is completing EMDR training. 2. Emotional trauma: - Schedule the patient for EMDR therapy with Marcelle once she has completed her training. - Encourage the patient to attend therapy sessions regularly and monitor progress. 1. TMS efficacy concerns: - Patient reports concerns about the efficacy of TMS, as it has been around 6 months since the last treatment. - Patient is still experiencing seizures. Plan: - Continue to monitor the patient's condition and consult with neurologists as needed. 2. Akathisia: - Patient reports feelings of restlessness, nervousness, and constant movement of hands and feet. - No significant stress factors or medication changes have been identified. Plan: - Monitor the patient's symptoms and consider adjusting medications if necessary. 3. Tardive dyskinesia: - Patient exhibits involuntary movements, including toe movements, finger movements, tongue movements, and eyebrow movements. - These movements are consistent with tardive dyskinesia, which may be a side effect of the patient's antipsychotic medication (quetiapine) and previous exposure to Abilify. Plan: - Initiate treatment with Austedo XR (deutetrabenazi ne) for tardive dyskinesia. - Provide the patient with a starter pack and instructions for use. Austedo XR 12mg daily x 7 days then 18mg daily x 7 days then 24mg daily x 7 days then 30mg daily. - Monitor the patient's response to the medication and any potential side effects. 4. Follow-up: - Cancel the patient's appointment on March 20. Plan: - Schedule a follow-up appointment in one month to assess the patient's response to Austedo XR and monitor the progression of tardive dyskinesia symptoms. - Encourage the patient to contact the provider if any issues or concerns arise before the next appointment. 06/21/2024 Tardive dyskinesia (ICD-10 - G24.01) 03/08/24 AIMS SCORE=22 07/19/2024 Other senior living (current) drug therapy (ICD-10 - Z79.899) clonazepam hs - by neurologist , amitriptylline by neurologist 07/19/2024 Panic disorder [episodic paroxysmal anxiety] (ICD-10 - F41.0) 06/21/2024 Akathisia (ICD-10 - G25.71) 07/19/2024 Tardive dyskinesia (ICD-10 - G24.01) 03/08/24 AIMS SCORE=22 07/19/2024 Akathisia (ICD-10 - G25.71) 04/21/2024 Other 1. Depression, anxiety, and nervousness: - Continue current medications: buspirone 15 mg, quetiapine (half of 100 mg in the morning and 300 mg in the evening), and lamotrigine 250 mg twice a day. Plan: - Continue therapy with Marcelle. 2. Seizures: - Continue lamotrigine 250 mg twice a day, as adjusted in the hospital. Plan: - Monitor seizure frequency and severity. 3. Restlessness and movement issues: - Continue clonazepam for restless leg syndrome. Plan: - Monitor symptoms and consider alternative treatments if symptoms worsen. 4. Amitriptyline use: Plan: - Discuss with the patient the potential benefits and risks of continuing or discontinuing amitriptyline. - Review past medical records to determine the original indication for amitriptyline prescription. 5. Elevated pulse and blood pressure: Plan: - Increase metoprolol ER dosage to 100 mg once a day. - Monitor blood pressure and pulse regularly. Follow-up: - Schedule a follow-up appointment to assess the effectiveness of the adjusted treatment plan and address any new concerns. 05/02/2024 Other Grief and Unresolved Emotions Related to Son's - Assessment: Patient reports recurring antagonistic dreams about his son, indicating unresolved emotions related to his son's . - Plan: - Continue exploring and processing grief in therapy sessions. - Encourage the patient to change the dream ending upon waking up, practicing forgiveness and understanding. - Consider discussing with the patient's about their son's final resting place and any unresolved emotions she may have. Family History of Addiction and Mental Health Issues - Assessment: Patient reports extensive family history of alcoholism and mental health issues. - Plan: - Continue to explore the impact of family history on the patient's emotions and relationships. - Educate the patient on harm reduction strategies for their grandson and other family members. - Encourage open communication within the family about mental health and addiction. EMDR Therapy for Unresolved Emotions and Trauma - Assessment: Patient requires EMDR therapy for unresolved emotions and trauma. - Plan: - Schedule EMDR therapy sessions starting in July, preferably in the morning to avoid potential seizure triggers. - Instruct the patient to take notes on dreams, thoughts, and feelings in preparation for EMDR therapy. - Discuss potential modifications to EMDR technique due to patient's seizure history. Family Dynamics and Communication - Assessment: Patient experiences complex family dynamics and communication issues. - Plan: - Encourage open and honest communication within the family about mental health, addiction, and past experiences. - Explore the impact of family dynamics on the patient's emotions and relationships in therapy sessions. - Discuss patient's 's traumatic childhood experiences and their potential impact on family dynamics. Patient's History of Seizures - Assessment: Patient reports seizures are not epileptic based on previous EEG results. - Plan: - Continue to monitor the patient's seizure activity and any potential triggers. - Ensure that EMDR therapy is conducted in a manner that minimizes the risk of triggering seizures. 05/16/2024 Other Pseudo-seizures - Assessment: Patient reports 10 days without a pseudo-seizure, with a mild one occurring last night. He expresses hope for continued improvement but also disappointment about the recent episode. - Plan: - Continue monitoring the frequency and severity of pseudo-seizures. - Encourage the patient to report any changes or worsening of symptoms. - Consider exploring alternative therapeutic options if pseudo-seizures persist. Anxiety related to EMDR therapy - Assessment: Patient expresses anxiety about the potential floodgate of emotions that EMDR therapy might open. - Plan: - Encourage the patient to continue with EMDR therapy and discuss any concerns or progress with the therapist. - Monitor anxiety levels and consider additional therapeutic interventions if needed. - Address the patient's apprehension about feeling emotions in therapy. Emotional trauma and attachment issues - Assessment: Patient discusses a history of emotional trauma, lack of parental attachment, and potential bipolar disorder. He reflects on generational trauma and its impact on his family. - Plan: - Explore the possibility of a formal evaluation for bipolar disorder. - Continue to address emotional trauma and attachment issues in therapy sessions. - Consider discussing the influence of generational trauma on the patient's emotional well-being. Family dynamics and concerns - Assessment: Patient expresses concerns about his daughter's family situation, grandson's mental health, and son-in-law's illness. He is also affected by his 's illness and the associated emotional burden. - Plan: - Encourage open communication with the family and provide support as needed. - Consider family therapy sessions to address communication and relationship issues. - Explore the impact of the 's illness on the patient's emotional state. Grief and loss - Assessment: Patient discusses the loss of his son and the impact on his emotional well-being. - Plan: - Continue to address grief and loss in therapy sessions. - Provide resources and support for coping with grief. - Explore the patient's feelings about his son's and its impact on his current emotional state. 05/24/2024 Other 1. Anxiety: - Patient stopped amitriptyline but resumed due to return of anxiety symptoms. - Zolmitriptan reported to help with anxiety. Plan: - Continue amitriptyline 25 mg daily. - Refill prescription. - Monitor anxiety symptoms and adjust medication as needed. 3. Pseudoseizures and leg convulsions: - Patient reports an 80% decrease in frequency and severity of pseudoseizures. - Clonazepam prescribed by neurologist, but unclear if effective. Plan: - Continue clonazepam as prescribed by neurologist. - Refill prescription. - Follow neurologist's advice to continue clonazepam and amitriptyline. 3. Sleep: - Patient reports sleeping well on current medications. Plan: - Continue current medications and monitor sleep quality. 4. Mood stability: - Patient taking 50 mg quetiapine in the morning and 300 mg in the evening. - No significant mood swings reported. Plan: - Continue quetiapine at current dosages. - Monitor mood stability and adjust medication as needed. 5. Possible akathisia: - Patient experiencing constant movement, possibly akathisia. - Considering reducing quetiapine to 250 mg at night or adjusting buspirone. Plan: - Consider reducing quetiapine to 250 mg at night or adjusting buspirone dosage. - Monitor for akathisia symptoms and adjust medications as needed. 6. Buspirone dosage adjustment: - Patient currently taking 15 mg buspirone twice a day and plans to reduce to 7.5 mg twice a day. Plan: - Change buspirone dosage to 7.5 mg twice a day. - Monitor for any changes in anxiety or akathisia symptoms. 7. Medication refills: Plan: - Refill amitriptyline and clonazepam prescriptions. - Send prescriptions for lamotrigine and quetiapine. 8. Follow-up: Plan: - Schedule a follow-up appointment in one month to assess patient's progress and medication effectiveness. - Provide assistance if any issues arise before the follow-up appointment. 06/13/2024 Other Difficulty Showing Affection - Assessment: Patient reports difficulty in showing affection towards family members, which may be related to childhood experiences, family dynamics, and a history of emotional detachment. - Plan: - Continue psychotherapy to explore the patient's emotional experiences and identify potential barriers to expressing affection. - Encourage the patient to practice expressing affection in small, manageable ways, such as verbal affirmations or physical touch. - Monitor the patient's progress in therapy and adjust treatment as needed. Depression and Anxiety - Assessment: Patient reports a lifelong history of depression and anxiety, which may be contributing to their difficulty in showing affection and emotional expression. The patient experiences tension and stress related to family dynamics. - Plan: - Continue psychotherapy to address the patient's depression and anxiety, focusing on coping strategies and emotional regulation. Grief and Loss - Assessment: Patient reports difficulty grieving the loss of family members and pets, which may be related to their difficulty in expressing emotions and a history of emotional detachment. - Plan: - Incorporate grief counseling into the patient's psychotherapy sessions to help them process and understand their feelings surrounding loss. - Encourage the patient to engage in activities that honor the memory of their loved ones, such as creating a memorial or sharing stories with family members. - Monitor the patient's progress in therapy and adjust treatment as needed to address any unresolved grief or emotional challenges. Family Dynamics and Communication - Assessment: Patient reports strained relationships with family members, including their , daughter, and in-laws, which may be contributing to their emotional difficulties. The patient feels tension and stress when entering their daughter's house. - Plan: - Encourage the patient to participate in family therapy sessions to address communication issues and improve family dynamics. - Work with the patient to develop healthy communication strategies and set boundaries within their relationships. - Monitor the patient's progress in therapy and adjust treatment as needed to address any ongoing family challenges. 06/21/2024 Nick Griffiths presents with well-controlled depression and anxiety, worsening nervous energy, and pseudoseizures in the evening causing weakness and physical disorientation. Anxiety and Depression Assessment: Depression and anxiety are currently well-controlled. However, the patient is experiencing worsening nervous energy. A recent reduction in buspirone from 15 mg to 7.5 mg to address this issue had no effect. The ineffectiveness of buspirone reduction suggests that it may not be contributing to symptom management. Plan: - Discontinue buspirone - Follow up in one month Pseudoseizures Assessment: Patient reports experiencing pseudoseizures in the evening, resulting in weakness and physical disorientation. Cognitive function remains mostly intact during these episodes. A neurologist at [facility] has confirmed the absence of epilepsy. There is disagreement among clinicians regarding whether the cause is emotional or physical. Multiple brain MRIs have shown no significant findings. The persistence and nature of these episodes suggest a potential neurological issue that requires further investigation. Plan: - Consider referral to Dr. Blancas for a second neurological opinion Possible Akathisia Assessment: Patient is currently taking quetiapine (315 mg in the evening, 15 mg in the morning). There is a suspicion that quetiapine might be causing akathisia, a movement disorder characterized by a feeling of inner restlessness and inability to stay still. Plan: - Consider adding benztropine 0.5 mg twice daily to address potential akathisia the note is transcribed using speech recognition software. It is a reflection of a visit with the patient. It might have some inaccuracy, including medication names and transcribing errors, though efforts have been made to correct them. 07/19/2024 Nick Griffiths presents with anxiety and sleep disturbances, recently exacerbated by running out of clonazepam for 2 weeks. Anxiety Assessment: Patient reports increased anxiety and nervousness since running out of clonazepam 0.5 mg for 2 weeks. Previously, the medication was helping but not fully controlling symptoms. Patient experiences anxiety-related physical symptoms, including restlessness and movement during appointments. The recent exacerbation is likely due to both the absence of medication and potential withdrawal symptoms. Plan: - Increase clonazepam to 1 mg PO at bedtime - Informed him that effects last approximately 6 hours, primarily addressing nighttime symptoms and sleep - Discussed potential for improved anxiety control with increased dose - Reorder clonazepam prescription (previously prescribed by neurologist) - Follow up in approximately one month to assess efficacy of increased dose Sleep Disturbance Assessment: Patient reports waking up in the middle of the night since discontinuing clonazepam. Prior to running out of medication, sleep quality was good. Plan: - Increase clonazepam to 1 mg PO at bedtime (as noted in anxiety management plan) - Anticipate improvement in sleep with resumption and increase of clonazepam Mood Disorder Assessment: Patient reports feeling wonderful regarding depression. Current medication regimen includes lamotrigine 250 mg twice daily and quetiapine 0.5 tablets in the morning and 3.5 tablets in the evening. Plan: - Continue current medication regimen: - Lamotrigine 250 mg PO twice daily - Quetiapine 0.5 tablets PO in the morning and 3.5 tablets PO in the evening Medication Management Assessment: Patient requires medication adjustments and prescription renewals. [facility] pharmacy reported non-response for 3-month supply approvals of benztropine and metoprolol ER. Plan: - Discontinue benztropine (patient reports no benefit) - Renew metoprolol ER 100 mg PO daily for 90-day supply - Send updated prescriptions to [facility] pharmacy the note is transcribed using speech recognition software. It is a reflection of a visit with the patient. It might have some inaccuracy, including medication names and transcribing errors, though efforts have been made to correct them. 08/02/2024 Other Seizure-like Episodes with Cognitive Impairment - Assessment: Owen reports experiencing seizure-like episodes, despite previous brain MRIs and EEGs reportedly not showing seizure activity. Symptoms include losing time, forgetting letters, and spelling difficulties. These cognitive impairments are impacting daily functioning, leading to increased social isolation. The etiology of these symptoms remains unclear, but does not appear to be primarily related to mental health issues given the specific cognitive deficits observed. - Plan: - Recommend patient discuss with primary care physician [facility]. - Continue monitoring cognitive symptoms and their impact on daily functioning. - Encourage maintaining social connections to prevent further isolation. Caregiver Stress - Assessment: Owen's is currently undergoing chemotherapy for cancer. This situation likely contributes to additional stress and emotional burden for the patient, potentially exacerbating his own health concerns and social isolation. - Plan: - Provide supportive counseling to help manage caregiver stress. - Explore coping strategies for balancing personal health needs with caregiving responsibilities . Each section addresses a specific problem area and outlines a corresponding assessment and plan for treatment and support. Plan Of Treatment Future Test Test Name Order Date Cortisol 11/10/2023 Growth Hormone, Serum 11/10/2023 ACTH, Plasma 11/10/2023 IGF-1 11/10/2023 FSH AND LH (7137) 11/10/2023 TSH+FREE T4 (93410) 11/10/2023 COMPREHENSIVE METABOLIC PANEL (03633) CREATININE (375) 11/10/2023 PROLACTIN (746) 11/10/2023 ESTROGENS, TOTAL, IA (439) 11/10/2023 TESTOSTERONE, FREE (51515) 11/10/2023 Next Appt Details Provider Name:Marcelle Peralta, 08/15/2024 10:00:00 AM, [address], [address], [address], Provider Name:Lanre diaz, 08/16/2024 09:45:00 AM, [address], [address], [address], Provider Name:Marcelle Peralta, 08/29/2024 10:00:00 AM, [address], [address], [address], Provider Name:Marcelle Peralta, 09/14/2024 10:00:00 AM, [address], [address], [address], Insurance Providers Payer Name Payer Address Payer Phone Subscriber Number Group Number Insured Name Patient Relationship to Insured Coverage Start Date Coverage End Date [employer] Medicare Replacement/ Advantage - Hmo [address] [place] [address] [id number] LUIZA GRIFFITHS Self - patient is the insured Medical (General) History Medical History History ICD Code Problems: Generalized anxiety disorder Long-term current use of drug therapy Mild recurrent major depression Panic disorder Restlessness Severe recurrent major depression withou t psychotic features , Surgical History Surgery Date(Month/Year) Other 04/06/1990
--- OUTSIDE RECORDS SUMMARY | 2024-08-08 12:40 | XMS_ITS ---
Author Organization [facility] [employer] [facility] Address [facility] [facility] [address] [place] [address] Care Team Providers Care Qa Reviewer Name Role Phone Kathia Alli MCCULLOUGH Primary Care Provider Radhames Mcfarland Unavailable [phone] REASON FOR VISIT Waiting for call back Social History Sex Assigned At : Social History Observation Description Sex Assigned At Male Encounters Encounter Location Date Provider Diagnosis [facility] [employer] [place] [address] [address] [facility] [address] [address] 08/04/2024 Radhames Alcocer Plan Of Treatment Next Appt Details Provider Name:Marcelle Peralta, 08/15/2024 10:00:00 AM, [facility] [facility], [address], [address], Provider Name:Lanre diaz, 08/16/2024 09:45:00 AM, [facility] [address] [facility], [address], [address], Provider Name:Marcelle Peralta, 08/29/2024 10:00:00 AM, [facility] [address], [address], Provider Name:Marcelle Peralta, 09/14/2024 10:00:00 AM, [facility] [address], [address], Progress Notes * LUIZA GRIFFITHS WDOB:1955 (69 yo M)Acc No.[id number]:08/04/2024 Patient: LUIZA OCONNOR :1955 A ge:69 Y S ex:Male Address:[address] [place], [place] [address], [address] * * Date:
--- OUTSIDE RECORDS SUMMARY | 2024-08-08 12:40 | XMS_ITS | Encounter Summary ---
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
--- OUTSIDE RECORDS SUMMARY | 2024-08-08 12:40 | XMS_ITS | Clinical Summary ---
Author Organization [address] Address [facility] [place] [address] Care Team Providers Care Dovetailer Name Role Phone Dylan Ayala NP Primary Care Provider [phone] Allergies No known active allergies Medications atorvastatin [...] Tobacco: Never Tobacco Cessation:Counseling Given: Not Answered [facility] Utilities Answer Date Recorded In the past 12 months has th e electric, gas, oil, or water [employer] threatened to shut off services in your [...] often do you attend chur ch or worship services? 1 to 4 times per year 10/11/2023 Do you belong to any clubs o r organizations such as evangelical groups, unions, fraternal or athletic groups, or [...] any time in the past 12 m [facility], were you homeless or living in a senior living (including now)? No 10/11/2023 Personal Safety Answer [...] 67 10/12/2023 7:22 AM CDT Temperature 36.7 C (98.1 F) 10/12/2023 7:22 AM CDT Respiratory Rate 18 10/12/2023 7:22 AM CDT [...] 1973 Well Visit 65+ 2022 Covid-19 Vaccine (2023-2 5 season) 2023 01/04/2023, 02/05/2022, 03/07/2021, Additional history exists Fall Risk Assessment 10/11/2024 10/12/2023 Influenza Vaccine (Season Ended) 2024 01/04/2023, 02/05/2022, 03/07/2021, Additional history exists DTaP/Tdap/Td Vaccine (2 - Td or Tdap) 06/05/2027 06/04/2017 Zoster Vaccine Completed 10/18/2017, 07/15/2017 Pneumococcal vaccine 65+ Completed 06/12/2022 Insurance [facility] Advance Directives For more information, please contact: [phone] * LIMITED - No CPR (Latest Code [...] 11:57 PM 10/10/2023 12:19 AM Care Teams Dovetailer Relationship Specialty Start Date End Date Dylan Ayala NP [address] [place], [place] [phone] PCP - General Nurse Practitioner 08/26/23
--- OUTSIDE RECORDS SUMMARY | 2024-08-08 12:40 | XMS_ITS | Referral Summary ---
Author Organization [address] Address [facility] [place] [address] Care Team Providers Care Glass Vial Bending Conveyor Feeder Name Role Phone Dylan Ayala NP Primary Care Provider [phone] Allergies No known active allergies Medications atorvastatin [...] Tobacco: Never Tobacco Cessation:Counseling Given: Not Answered [facility] Utilities Answer Date Recorded In the past 12 months has th e [employer], oil, or water [employer] threatened to shut off services in your [...] often do you attend chur ch or jewish services? 1 to 4 times per year 10/11/2023 Do you belong to any clubs o r organizations such as baptist groups, unions, fraternal or athletic groups, or [...] any time in the past 12 m [facility], were you homeless or living in a fci (including now)? No 10/11/2023 Personal Safety Answer [...] Plan of Treatment Not on file Insurance [facility] Advance Directives For more information, please contact: [phone] * LIMITED - No CPR (Latest Code [...] 11:57 PM 10/10/2023 12:19 AM Care Teams Glass Vial Bending Conveyor Feeder Relationship Specialty Start Date End Date Dylan Ayala NP [address] [place] [address] PCP - General Nurse Practitioner 08/26/23
== END 2024-08-08 12:33 | disposition home or self-care (01) ==
PROVIDERS: PCP Internal Medicine; Visit Provider Internal Medicine
DX: R55 Syncope and collapse (principal)
CPT/HCPCS: 93242

== ENCOUNTER 2024-09-19 10:06 | Outpatient (CLI) | payer OTHER, SELFPAY ==
--- OUTSIDE RECORDS SUMMARY | 2024-09-19 11:16 | XMS_ITS | Clinical Summary ---
Author Organization [facility] [employer] Address [address] [facility] [place] [address] Care Team Providers Care Rectifying Operator Name Role Phone Will Bernal MD Primary Care Provider [phone] Source Comments [facility] [employer],non-owned Affiliates and Associated Physician Practices is amultiple site organization consisting of ambulatory clinics and hospital sitesin [place], [place], [place] and [place]. This disclosure is being madepursuant to the Care Everywhere program and may not contain all information available regarding this patient. Last updated 17.[facility] [employer] Allergies No known active allergies Medications * [...] and heating? Not hard at all 01/10/2024 [facility] [place] of Occupat ional Health - Occupational Stress [...] place to sleep or slept in a fci (including now)? 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 Gender Identity Not on file Sexual Orientation [...] 10:07 AM CDT Height 185.4 cm (6' 1) 01/10/2024 10:07 AM CDT Body Mass Index [...] patient's age to complete this topic Insurance [facility] MEDICARE [employer] SELF PAY NO INSURANCE Member Subscriber Plan / Payer (Ef fective for All Dates) Name:Luiza Griffiths Member ID:Not on file Relation to Subscriber:Not on file Name:LUIZA GRIFFITHS Subscriber ID:Not on file (Home) Address: [address] [place] [id number] Payer ID:Not on file Group ID:Not on file Type:Self Pay Address: [place], [place] Advance Directives * Full Code (Latest Code Status on File) Date Activated Date Inactivated Comments 01/10/2024 10:58 AM 01/15/2024 1:21 PM Care Teams Rectifying Operator Relationship Specialty Start Date End Date Will Bernal MD [address] [facility] [address] [place] [address] PCP - General 05/08/22
--- OUTSIDE RECORDS SUMMARY | 2024-09-19 11:16 | XMS_ITS ---
Author Organization [facility] [employer] Address [address] [place] [address] Care Team Providers Care Automobile Radio Repairer Name Role Phone Alli Bae DO Primary Care Provider Radhames Mcfarland Unavailable [phone] Lanre Berry Unavailable [phone] Allergies No Known Allergies REASON FOR VISIT 1 month f/u Medications Medication SIG (Take, Route, Frequency, Duration) Notes Start Date End Date Status Atorvastatin Calcium 20 MG TAKE 1 TABLET BY MOUTH EVERY DAY Oral for 90 Days Active Amitriptyline HCl 25 MG 1 tablet at bedt jeremy Oral Once a day for 30 days Active Metoprolol Succinate ER 100 MG TAKE 1 TABLET BY MOUTH EVERY DAY FOR 30 DAYS for 90 Active Vitamin B6 Active lamoTRIgine 200 MG 1 tablet Orally twice a day for 90 days ( 250mg twice daily) Active clonazePAM 1 MG 1 tablet Oral Once a day for 30 days take at bedtime Active LORazepam 1 MG Oral for 30 Days Not-Taking QUEtiapine Fumarate 100 MG 4 tablets Oral Once a day for 90 days take 0.5 tablet in morning and 3.5 tablet in the evening Active Metoprolol Succinate ER 100 MG 1 tablet Oral Once a day for 90 days Active QUEtiapine Fumarate 100 MG 4 [...] alcohol in the p ast year? No Vital Signs Blood pressure systolic 123 mm Hg 09/19/19 25 Blood pressure diastolic 78 mm Hg 025 Heart Rate 62 /min 09/18/2024 Height 74.00 in 09/18/2024 Weight 233 lbs 09/18/2024 BMI 29.91 kg/m2 09/18/2024 Height-cm 187.96 cm 09/18/2024 Weight-kg 105.69 kg 09/18/2024 Encounters Encounter [facility] Date 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) drug therapy Z79.899 and Akathisia G25.71 Assessments Encounter Date Diagnosis (ICD Code) Assessment Notes Treatment Notes Treatment Clinical Notes Section Notes 09/18/2024 Encounter for screening for cardiovascular disorders (ICD-10 - Z13.6) 09/18/2024 Negative depression screening (ICD-10 - Z13.31) 09/18/2024 Major depressive disorder, recurrent, mild (ICD-10 - F33.0) lamotrigine 250mg bid, quetiapine 100mg tablet- take 0.5 tablet in am, 3.5 tablet in pm 09/18/2024 Encounter for screening for depression (ICD-10 - Z13.31) 09/18/2024 Panic disorder [episodic paroxysmal anxiety] (ICD-10 - F41.0) 09/18/2024 Tardive dyskinesia (ICD-10 - G24.01) 03/08/24 AIMS SCORE=22 09/18/2024 Generalized anxiety disorder (ICD-10 - F41.1) 09/18/2024 Panic disorder [episodic paroxysmal anxiety] without agoraphobia (ICD-10 - F41.0) 09/18/2024 Other predatory animal exterminator (current) drug therapy (ICD-10 - Z79.899) clonazepam hs - by neurologist , amitriptylline by neurologist 09/18/2024 Akathisia (ICD-10 - G25.71) 09/18/2024 Other using cbd/thc brand wana, 20mg cbd, 1mg thc Plan Of Treatment Medication Medication Name Sig Start Date Stop Date Notes lamoTRIgine 200 MG 1 tablet Orally twic e a day for 90 days clonazePAM 1 MG 1 tablet Oral Once a day for 30 days QUEtiapine Fumarate 100 MG 4 tablets Ora l Once a day for 90 days Metoprolol Succinate ER 100 MG 1 tablet Oral Once a day for 90 days Treatment Notes Assessment Notes Major depressive disorder, r ecurrent, mild lamotrigine 250mg bid, quetiapine 100mg tablet- take 0.5 tablet in am, 3.5 tablet in pm Tardive dyskinesia 03/08/24 AIMS SCORE=2 2 Other predatory animal exterminator (current) drug therapy c lonazepam hs - by neurologist , amitriptylline by neurologist Other using cbd/thc brand wana, 20mg cbd, 1mg thc Next Appt Details Follow Up: 4 Weeks, Reason: f/u anxiety, depression Provider Name:Lanre diaz, 10/18/2024 09:15:00 AM, [address] [place] [address], [address], [address], Provider Name:Marcelle Peralta, 11/06/2024 09:00:00 AM, [address], [address], [address], Progress Notes * LUIZA GRIFFITHS WDOB:1955 (69 yo M)Acc No.[id number]:09/18/2024 Patient: LUIZA OCONNOR Provider: JESSI WEINERP :1955 A ge:69 Y S ex:Male Date:09/18/2024 Address:[address] [place], [place] [id number] Pcp:Alli Bae DO Subjective: * Chief Complaints: * 1 . 1 month f/u. * HPI: D epression Screening: VINH-7 (2018 Edition) F eeling nervous, anxious, or on edge S everal days N ot being able to stop or control worrying?Several days W orrying too much about different things S everal T rouble relaxing S ever B eing so restless that it is hard to sit still S everal B ecoming easily annoyed or irritable S ever F eeling afraid as if something awful might happen S ever T otal VINH-7 Score 7 I nterpretation of Total ( 5 to 9) Mild [place]-Suicide Severity Rating Scale: Suicide Risk (CSRS-screener) i n the past one month Have you wished you were or wished you could go to sleep and not wake up? N o i n the past one month Have you actually had any thoughts of killing yourself? N o H ave you ever done anything, started to do anything, or prepared to do anything to end your life? N o D epression screening: PHQ-9 L ittle interest or pleasure in doing things?Several days F eeling down, depressed, or hopeless S everal T rouble falling or staying asleep, or sleeping too much N ot at all F eeling tired or having little energy S ever P oor appetite or overeating N ot at all F eeling bad about yourself or that you are a failure, or have let yourself or your family down N ot at all T rouble concentrating on things, such as reading the newspaper or watching television N ot at all M oving or speaking so slowly that other people could have noticed; or the opposite, being so fidgety or restless that you have been moving around a lot more than usual N ot at all T houghts that you would be better off or of hurting yourself in some way N ot at all T otal Score 3 I nterpretation M inimal Depression Intervention D epression Screening Findings N egative F ollow-Up for Depression P sychiatric follow-up S uicide Risk Assessment Performed 0 09/18/2024 - date F unctional Status: Functional Status Assessment D ate of last completed Functional Status Assessment: 0 09/18/2024 F all Risk Assessment: T wo or more falls with injury in the past year H istory of Presenting Problem: BP normalElevated or Hypertensive blood pressure reading. Anxiety O nset: years ago, Associated Symptoms: nervousness, restlessness , Onset: years ago, Associated Symptoms: nervousness, restlessness. Sleep disturbance s leep is not bad , sleep is not bad.? advance care planning discussDepression screening done. E lderly Maltreatment: Screening Questions P hysical Abuse - Infliction of physical injury by punching, beating, kicking, biting, burning, shaking, or other actions that result in harm.?No E motional/Psychological Abuse - Willful infliction of mental or emotional anguish by threat, humiliation, isolation, or other verbal or nonverbal conduct. N o N eglect - Involves attitudes of others or actions caused by others - such as family members, friends, or institutional caregivers - that have an extremely detrimental effect upon well-being N o S exual Abuse - Forcing of undesired sexual behavior by one person upon another against their will who are either competent or unable to fully comprehend and/or give consent. This may also be called molestation. N o E lder Abandonment - Desertion of an elderly person by an individual who has assumed responsibility for providing care for an elder, or by a person with physical custody of an elder N o F inancial or Material Exploitation - Taking advantage of a person for monetary gain or profit N o U nwarranted Control - Controlling a person's ability to make choices about living situations, household finances, and medical care. N o Screening Results R esults E lder maltreatment screen documented as negative, follow-up is not required (G8734) Elder maltreatment screen documented as negative, follow-up is not required. * ROS: P erformance Met: N ormal blood pressure reading documented, follow-up not required ( G8783). * Medical History: P roblems: Generalized anxiety disorder, Long-term current use of drug therapy, Mild recurrent major depression, Panic disorder, Restlessness, Severe recurrent major depression without psychotic features, ,. * Social History: T obacco Use: T obacco Control (Standard) T obacco use: N onsmoker M igrated Social History: M igrated Social History: Alcohol Intake: None 01/18/2023,Tobacco Years: Never smoker 01/18/2023. D rug/Alcohol: D o you smoke marijuana?: Denies. Do you drink alcohol?: No. AUDIT-C (Standard) D id you have a drink containing alcohol in the past year? N o M iscellaneous: A dvance Care Planning A re you your own decision-maker Y es D o you have Power of Press Worker Helper for Health or Medical? Y es D o you have a power of outpatient facility physical therapist for health??Yes D o you have power of outpatient facility physical therapist for Medical ??Yes I f yes, then please bring the POA paperwork so that we can upload it. N o A dvance Directive D o Not Resuscitate * Medications: T aking Vitamin B6 , Taking Atorvastatin Calcium 20 MG Tablet TAKE 1 TABLET BY MOUTH EVERY DAY Oral , Taking Amitriptyline HCl 25 MG Tablet 1 tablet at bedtime Oral Once a day , Taking Metoprolol Succinate ER 100 MG Tablet Extended Release 24 Hour TAKE 1 TABLET BY MOUTH EVERY DAY FOR 30 DAYS , Taking lamoTRIgine 200 MG Tablet 1 tablet Orally twice a day ( 250mg twice daily), Taking Metoprolol Succinate ER 100 MG Tablet Extended Release 24 Hour 1 tablet Oral Once a day , Taking QUEtiapine Fumarate 100 MG Tablet 4 TABLETS Oral see sign , Taking clonazePAM 1 MG Tablet 1 tablet Oral Once a day take at bedtime, Not-Taking Tamsulosin HCl 0.4 MG Capsule Oral , Not-Taking Metoprolol Succinate ER 25 MG Tablet Extended Release 24 Hour Oral , Not-Taking Trintellix 10 MG Tablet Oral , Not-Taking LORazepam 1 MG Tablet Oral , Discontinued Metoprolol Succinate ER 50 MG Tablet Extended Release 24 Hour 1 tablet Oral Once a day , Medication List reviewed and reconciled with the patient * Allergies: N .K.D.A. Objective: * Vitals: B P:123/78mm Hg, HR:62/min, Wt:233lbs, Wt-k.69 kg, Ht: 74.00 in, Ht-cm: 187.96 cm, BMI:29.91Index, Body Surface Area: 2.35. * Examination: P sychiatry: Appearance: w ell-groomed, well-nourished, .... Affect / mood: a ppropriate, full range. Attention: g ood. Attitude: c ooperative. Suicidal ideation: n one. Memory status: n o impairment noted. Degree of awareness of surroundings: w ithin normal limits.? Delusions: n o. Hallucinations: n o. Insight: g ood. Intellectual functioning: n o impairment noted. Judgement: g ood. Orientation: a wake, alert and oriented x 3. Perceptual disorders: n o perceptual disorder noted. Psychomotor activity: w ithin normal range. Speech / language: a ppropriate pitch/modulation, clear and coherent, normal rate, volume, and articulation (RVR), proper grammar used. Thought content: a ppropriate. Thought process: i ntact. Assessment: * Assessment: 1. N egative depression screening - Z13.31 (Primary) 2 . E ncounter for screening for cardiovascular disorders - Z13.6 3 . M ajor depressive disorder, recurrent, mild - F33.0 4 . E ncounter for screening for depression - Z13.31 & #160; 5 . P anic disorder [episodic paroxysmal anxiety] - F41.0 6 . T ardive dyskinesia - G24.01 7 . G eneralized anxiety disorder - F41.1 ?8. P anic disorder [episodic paroxysmal anxiety] without agoraphobia - F41.0 9 . [facility] [place] [facility] (current[facility] drug therapy - Z79.899 1 0. A kathisia - G25.71 Plan: * Treatment: 2. T ardive dyskinesia Notes: 03/08/24 AIMS SCORE=22 3. G eneralized anxiety disorder Continue Metoprolol Succinate ER Tablet Extended Release 24 Hour, 100 MG, 1 tablet Oral Once a day, 90 days, 90 Tablet, Refills 1. 4. P anic disorder [episodic paroxysmal anxiety] without agoraphobia Continue clonazePAM Tablet, 1 MG, 1 tablet, Oral, Once a day take at bedtime, 30 days, 30 Tablet, Refills 1. 5. [facility] [place] [facility] drug therapy Notes: clonazepam hs - by neurologist , amitriptylline by neurologist 6. O thers Notes: using cbd/thc brand pipe, 20mg cbd, 1mg thc * Procedure Codes: G 8783 NORMAL BP READING DOC F/U NOT RQR, G8734 ELDER MALTX SCR DOC NEG NO F/U RQR, 1123F ACP DISCUSS/DSCN MKR DOCD, 1036F TOBACCO NON-USER, 58490 BEHAV ASSMT W/SCORE & DOCD/STAND INSTRUMENT, G8752 MOST RECENT SYSTOLIC BP < 140MM HG, G8510 NEG SCR D PT NOT ELIG F/U/PLN DOC, G8754 MOST RECENT DIASTOLIC BP < 90MM HG * Preventive Medicine: Counseling: A dvance Care Planning Date of last Advance Care Planning:?09/18/2024 ____ MIPS Type of advance care directives: D o Not Resuscitate (DNR),Durable power of outpatient facility physical therapist for healthcare Screenings: D epression screening Have you had a recent depression screening? Y es * Follow Up: 4 Weeks (Reason: f/u anxiety, depression) * Billing Information: * Visit Code: 13009 OFFICE OUTPATIENT VISIT 25 MINUTES DETAILED HISTORY AND EXAM/MODERATE MEDICAL DECISION MAKING. * Procedure Codes: G8783 NORMAL BP READING DOC F/U NOT RQR. G8734 ELDER MALTX SCR DOC NEG NO F/U RQR. 1123F ACP DISCUSS/DSCN MKR DOCD. 1036F TOBACCO NON-USER. 35610 BEHAV ASSMT W/SCORE & DOCD/STAND INSTRUMENT. G8752 MOST RECENT SYSTOLIC BP < 140MM HG. G8510 NEG SCR D PT NOT ELIG F/U/PLN DOC. G8754 MOST RECENT DIASTOLIC BP < 90MM HG. * Electronic signature of ASHLEY Spivey on 09/19/2024 at 11:15 AM CDT Sign off status: Pending * Provider: ASHLEY WEINER Date: 0 09/18/2024 Generated for Clem bloom/Jolynn/Den on: 09/19/2024 11:15 AM CDT History and Physical Notes * HPI (History of Present Illness) Category Sub-Category Detail Notes Category Not es History of Presenting Problem Anxiety Onset: years ago, Associated Symptoms: nervousness, restlessness , Onset: years ago, Associated Symptoms: nervousness, restlessness advance care planning discuss Depression screening done Sleep disturbance sleep is not bad , s leep is not bad Depression screening PHQ-9 Little inte rest or pleasure in doing things: Several days Feeling down, depressed, or hopeless: Se veral days Trouble falling or staying asleep, or sl eeping too much: Not at all Feeling tired or having little energy: S everal days Poor appetite or overeating: Not at all Feeling bad about yourself o r that you are a failure, or have let yourself or your family down: Not at all Trouble concentrating on thi ngs, such as reading the newspaper or watching television: Not at all Moving or speaking so slowly that other people could have noticed; or the opposite, being so fidgety or restless that you have been moving around a lot more than usual: Not at all Thoughts that you would be b benedicto off or of hurting yourself in some way: Not at all Total Score: 3 Interpretation: Minimal Depression Intervention Depression Screening Findings: N egative Follow-Up for Depression: Psychiatric fo llow-up Suicide Risk Assessment Performed: 09/18 - date Functional Status Functional Status Assessment D ate of last completed Functional Status Assessment:: 09/18/2024 Fall Risk Assessment:: Two or more falls with injury in the past year Depression Screening VINH-7 (2018 Edition) Feelin g nervous, anxious, or on edge: Several days Not being able to stop or control worryi ng: Several days Worrying too much about different things : Several days Trouble relaxing: Several days Being so restless that it is hard to sit still: Several days Becoming easily annoyed or irritable: Se veral days Feeling afraid as if something awful [place] ht happen: Several days Total VINH-7 Score: 7 Interpretation of Total: (5 to 9) Mild Elderly Maltreatment Screening Questions Physica l Abuse - Infliction of physical injury by punching, beating, kicking, biting, burning, shaking, or other actions that result in harm.: No Elder maltreatment screen documented as negative, follow-up is not required Emotional/Psychological Abus e - Willful infliction of mental or emotional anguish by threat, humiliation, isolation, or other verbal or nonverbal conduct.: No Neglect - Involves attitudes of others or actions caused by others - such as family members, friends, or institutional caregivers - that have an extremely detrimental effect upon well-being: No Sexual Abuse - Forcing of un desired sexual behavior by one person upon another against their will who are either competent or unable to fully comprehend and/or give consent. This may also be called molestation.: No Elder Abandonment - Desertio n of an elderly person by an individual who has assumed responsibility for providing care for an elder, or by a person with physical custody of an elder: No Financial or Material Exploi tation - Taking advantage of a person for monetary gain or profit: No Unwarranted Control - Contro lling a person's ability to make choices about living situations, household finances, and medical care.: No Screening Results Results: Elder maltr eatment screen documented as negative, follow-up is not required (G8734) [place]-Suicide Severity Rating Scale Suicide Risk (CSRS-screener) in the past one month Have you wished you were or wished you could go to sleep and not wake up?: No in the past one month Have y ou actually had any thoughts of killing yourself?: No Have you ever done anything, started to do anything, or prepared to do anything to end your life?: No Examination Category Sub-Category Detail Notes Category Not es Psychiatry Appearance: well-groomed, well-nourished , ... Attitude: cooperative Psychomotor activity: within normal rang e Attention: good Degree of awareness of surroundings: wit hin normal limits Orientation: awake, alert and loan ented x 3 Affect / mood: appropriate, full ra nge Speech / language: appropriate pitch/mo dulation, clear and coherent, normal rate, volume, and articulation (RVR), proper grammar used Insight: good Judgement: good Thought process: intact Thought content: appropriate Perceptual disorders: no perceptual diso rder noted Suicidal ideation: none Intellectual functioning: no impairment noted Memory status: no impairment noted Delusions: no Hallucinations: no
--- OUTSIDE RECORDS SUMMARY | 2024-09-19 11:16 | XMS_ITS | Patient Health Record ---
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 clonazepam hs - by neurologist , amitriptylline by neurologist 07/19/2024 Akathisia (ICD-10 - G25.71) 09/18/2024 Akathisia (ICD-10 - G25.71) 09/18/2024 Other using cbd/thc brand pipe, 20mg cbd, 1mg thc 04/21/2024 Other 1. Depression, anxiety, and nervousness: [...] intact during these episodes. A neurologist at [facility] has confirmed the absence of epilepsy. There [...] Patient requires medication adjustments and prescription renewals. [facility] pharmacy reported non-response for 3-month supply approvals of benztropine and metoprolol ER. Plan: - Discontinue benztropine (patient reports no benefit) - Renew metoprolol ER 100 mg PO daily for 90-day supply - Send updated prescriptions to [facility] pharmacy the note is transcribed using speech [...] with primary care physician about referral to [facility] for comprehensive neurological evaluation. - Continue monitoring [...] assessment and plan for treatment and support. 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 These episodes can last for hours, during which he appears unresponsive and may have difficulty with basic tasks such as eating. His reports having to feed him during these states. Owen has no memory of these episodes but describes them as similar to daydreams. The etiology is unclear, with possibilities including stress-related dissociation or an underlying medical condition. A previous MRI showed no concerning results, but it was performed some time ago. The frequency and duration of these episodes are causing significant functional impairment and concern for both Owen and his . - Plan: - Referral to [facility] for comprehensive evaluation of dissociative episodes and non-epileptic seizures. - Prepare statement from [facility] to accompany referral documentation. - Discuss transportation options with patient and family: - Consider daughter's offer to take time off work and drive patient to [facility]. - Address patient's concerns about potential seizure during air travel. - Explore financial concerns related to [facility] referral: - Discuss potential length of stay and associated costs. - Investigate insurance coverage and potential financial assistance options. - Consider updated neuroimaging studies pending [facility] evaluation. - Follow up after [facility] appointment to review findings and adjust treatment plan accordingly. This section addresses Owen's primary concern of dissociative episodes and possible non-epileptic seizures, outlining the assessment and a comprehensive plan for further evaluation and management. 08/16/2024 Nick Griffiths presents with progressive neurological symptoms including memory loss, motor coordination issues, and headaches, with no clear etiology identified despite previous neurological evaluations. Progressive neurological symptoms of unclear etiology Assessment: Mr. Griffiths reports experiencing periods of memory loss, motor coordination problems, and headaches that have been progressively worsening. He describes episodes where he loses significant periods of time, sometimes several hours, and has difficulty with fine motor skills such as using utensils. These symptoms are reported to occur at various times throughout the day and are increasing in frequency and duration. Previous neurological evaluations, including a 6-day EEG, have not identified a clear cause. A neurologist reportedly attributed the symptoms to emotional factors, which the patient disagrees with given the progressive nature of his symptoms. The patient denies feeling anxious or depressed and reports good sleep. There is no apparent correlation between his symptoms and his current medications, including quetiapine and amitriptyline. The differential diagnosis at this point includes possible neurological conditions such as multiple sclerosis or other progressive neurological disorders that may not have been identified in previous evaluations. Plan: - Referral in place for comprehensive neurological evaluation to investigate possible multiple sclerosis or other neurological conditions - Continue current psychiatric medications: - Quetiapine 350 mg PO at night and 50 mg PO in the morning - Amitriptyline (dose not specified) - Clonazepam at bedtime (patient has 2 days of medication left) - Follow up in one month to reassess symptoms and review results of neurological evaluation if available the note is transcribed using speech recognition software. It is a reflection of a visit with the patient. It might have some inaccuracy, including medication names and transcribing errors, though efforts have been made to correct them. 08/29/2024 Other Recurrent Dissociative Episodes - Assessment: Owen reports experiencing recurring episodes of dissociation lasting for hours. These episodes are characterized by double vision, confusion, and loss of consciousness, typically occurring in the afternoon or evening. Previous workup includes three brain MRIs showing no abnormalities and a recent Holter monitor test revealing no significant cardiac issues. The etiology remains unclear, with differential diagnoses including neurological disorders, autonomic dysfunction, and psychological factors. - Plan: - Recommend patient measure blood pressure during episodes. - Advise continuing morning walks and caffeine intake, as these activities do not seem to trigger episodes. - Follow up with Michael (attending psychiatrist) Social Isolation - Assessment: Owen reports increasing social isolation, preferring to stay at home alone rather than attending family events or social gatherings. This behavior appears to be driven by fear of experiencing a dissociative episode in public, as well as a general preference for solitude. The patient acknowledges that this isolation is worsening over time. - Plan: - Encourage gradual exposure to social situations, starting with low-stress environments. - Discuss strategies for managing anxiety related to potential public episodes. - Explore the benefits of maintaining social connections for overall mental health. 09/14/2024 Other Neurological Symptoms (Memory Loss, Dizziness, Fainting) - Assessment: Owen reports experiencing increasing episodes of memory loss, dizziness, and fainting. He describes losing time during daily activities. These symptoms appear to be worsening, with no clear pattern or triggers identified. Walking and caffeine consumption seem to alleviate symptoms temporarily. Previous neurological evaluations have ruled out epilepsy but have not provided a definitive diagnosis. R/O POTS, Conversion Disorder, Attachment Disorder (RAD), Sociopathy Spectrum/Antisoc ial PD - Plan: - Follow up with neurology appointment at [facility] on December 05 for comprehensive evaluation of neurological symptoms. - Continue to monitor and document frequency and severity of memory loss, dizziness, and fainting episodes. - Maintain current strategy of walking and caffeine consumption for symptom relief as needed. - Avoid driving or operating machinery during symptomatic periods for safety. History of Antisocial Behaviors - Assessment: Owen reports a significant history of antisocial behaviors during his childhood and adolescence, including stealing, vandalism, arson, and substance abuse. These behaviors decreased significantly during college and adulthood, with a gradual development of empathy and concern for others. This history suggests potential conduct disorder in childhood. - Plan: - Continue to explore Owen's personal growth and development of empathy in future sessions. - Discuss how past experiences may influence current relationships and emotional responses. - Encourage Owen to reflect on positive changes in his behavior and attitudes over time. Each section addresses a specific area of concern for Owen, providing an assessment of the issue and a corresponding plan for treatment and support. Plan Of Treatment Future Test Test Name Order Date Cortisol 11/10/2023 Growth Hormone, Serum 11/10/2023 ACTH, Plasma 11/10/2023 IGF-1 11/10/2023 FSH AND LH (7137) 11/10/2023 TSH+FREE T4 (48532) 11/10/2023 COMPREHENSIVE METABOLIC PANEL (48428) CREATININE (375) 11/10/2023 PROLACTIN (746) 11/10/2023 ESTROGENS, TOTAL, IA (439) 11/10/2023 TESTOSTERONE, FREE (74924) 11/10/2023 Next Appt Details Provider Name:Lanre diaz, 10/18/2024 09:15:00 AM, [address], [facility] [address], [address], Provider Name:Marcelle Peralta, 11/06/2024 09:00:00 AM, [address], [address], [place], [address], Insurance Providers Payer Name Payer Address Payer Phone Subscriber Number Group Number Insured Name Patient Relationship to Insured Coverage Start Date Coverage End Date [employer] Medicare Replacement/ Advantage - Hmo [address] [place]SE [place]ANCISCO KEEN [phone] [id number] LUIZA GRIFFITHS Self - patient is the insured Medical (General) History Medical History History ICD Code Problems: Generalized anxiety disorder Long-term current use of drug therapy Mild recurrent major depression Panic disorder Restlessness Severe recurrent major depression withou t psychotic features , Surgical History Surgery Date(Month/Year) Other 04/06/1990
--- OUTSIDE RECORDS SUMMARY | 2024-09-19 11:16 | XMS_ITS | Encounter Summary ---
Author Organization 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
--- OUTSIDE RECORDS SUMMARY | 2024-09-19 11:16 | XMS_ITS | Clinical Summary ---
Author Organization [facility] [place] Address [facility] [place] [address] Care Team Providers Care Fire Alarm Mechanic Name Role Phone Dylan Ayala NP Primary Care Provider [phone] Alli Bae DO Unavailable Allergies No known active allergies Medications atorvastatin [...] Tobacco: Never Tobacco Cessation:Counseling Given: Not Answered [facility] Utilities Answer Date Recorded In the past 12 months has [employer], gas, oil, or water company threatened to shut off services in your [...] often do you attend chur ch or gnosticism services? 1 to 4 times per year 10/11/2023 Do you belong to any clubs o r organizations such as anabaptist groups, unions, fraternal or athletic groups, or [...] any time in the past 12 m [facility], were you homeless or living in a fdc (including now)? No 10/11/2023 Personal Safety Answer [...] 10:17 AM CDT Height 188 cm (6' 2.02) 10/11/2023 10: 17 AM CDT Body Mass Index 27.81 10/11/2023 10:17 AM CDT Plan of Treatment Health Maintenance Due Date Last Done Comments Colon Cancer Screening-Colonoscopy 1957 Depression Screening 1957 Hepatitis C Screening 1957 Prostate Cancer Screening-PSA 1957 Hepatitis B Screening 1975 Abdominal Aortic Aneurysm (A AA) Screen 2022 Well Visit 65+ 2022 Covid-19 Vaccine (2023-2 5 season) 2023 01/04/2023, 02/05/2022, 03/07/2021, Additional history exists Fall Risk Assessment 10/11/2024 10/12/2023 Influenza Vaccine (Season Ended) 2024 01/04/2023, 02/05/2022, 03/07/2021, Additional history exists DTaP/Tdap/Td Vaccine (2 - Td or Tdap) 06/05/2027 06/04/2017 Zoster Vaccine Completed 10/18/2017, 07/15/2017 Pneumococcal vaccine 65+ Completed 06/12/2022 Insurance [facility] Member Subscriber Plan / Payer (Ef fective 2021-Present) Name:Basilio Jaimes Relation to Subscriber:Self Name:Basilio Jaimes Payer ID:[id number] (NAIC) Type:MEDICARE RISK OTHER Address: [place] [id number] Advance Directives For more information, please contact: [phone] * LIMITED - No CPR (Latest Code [...] 11:57 PM 10/10/2023 12:19 AM Care Teams Fire Alarm Mechanic Relationship Specialty Start Date End Date Dylan Ayala NP [address] [place] [address] PCP - General Nurse Practitioner 08/26/23 Alli Bae DO [address] [facility] [address] [place], [place] [id number] Referring Physician Internal Medicine 08/30/24
--- OUTSIDE RECORDS SUMMARY | 2024-09-19 11:16 | XMS_ITS | Referral Summary ---
Author Organization [facility] [place] Address [facility] [place] [address] Care Team Providers Care Manual Qa Tester Name Role Phone Dylan Ayala NP Primary Care Provider [phone] Alli Bae DO Unavailable Allergies No known [...] Tobacco: Never Tobacco Cessation:Counseling Given: Not Answered [facility] Utilities Answer Date Recorded In the past 12 months has th e [employer], gas, oil, or water [employer] threatened to shut off services in your [...] any clubs o r organizations such as hinduism groups, unions, fraternal or athletic groups, or [...] any time in the past 12 m [facility], were you homeless or living in a snf (including now)? No 10/11/2023 Personal Safety Answer [...] Plan of Treatment Not on file Insurance [facility] Advance Directives For more information, please contact: [phone] * LIMITED - No CPR (Latest Code [...] 11:57 PM 10/10/2023 12:19 AM Care Teams Manual Qa Tester Relationship Specialty Start Date End Date Dylan Ayala NP [address] [place] [address] PCP - General Nurse Practitioner 08/26/23 Alli Bae DO [address] [place] [address] Referring Physician Internal Medicine 08/30/24
[2024-09-19 19:51] LABS: Alanine Aminotransferase 29 U/L (6-50); Albumin Level 4.3 g/dL (3.5-5.1); Alkaline Phosphatase 167 U/L (38-126); Anion Gap 6 mmol/L (4-12); Aspartate Amino Transferase 31 U/L (17-59); Bilirubin,Total 0.6 mg/dL (0.2-1.3); Blood Urea Nitrogen 15 mg/dL (9-20); Carbon Dioxide 29 mmol/L (22-30); Chloride 103 mmol/L (98-107); Cholesterol 256 mg/dL (0-200); Estimated Glomerular Filt Rate > 60; Glucose 100 mg/dL (65-110); HDL Direct 80 mg/dL; Potassium 4.7 mmol/L (3.4-5.0); Sodium 138 mmol/L (137-145); Total Protein 7.4 g/dL (6.3-8.2); Triglycerides 92 mg/dL (<150)
[2024-09-19 20:09] LABS: LDL Cholesterol Direct 119 mg/dL
[2024-09-19 21:11] LABS: Hemoglobin A1C 5.3 % (<5.7)
== END 2024-09-19 10:07 | disposition home or self-care (01) ==
PROVIDERS: PCP Internal Medicine; Visit Provider Internal Medicine
DX: B35.1 Tinea unguium (principal); E78.49 Other hyperlipidemia; I10 Essential (primary) hypertension; R73.01 Impaired fasting glucose; Z79.899 Other long term (current) drug therapy
CPT/HCPCS: 36415; 80053; 80061; 83036

== ENCOUNTER 2024-09-28 10:56 | Outpatient (CLI) | payer OTHER, SELFPAY ==
[2024-09-28 12:39] LABS: Basophils Percent Auto 0.8 % (0.2-1.2); Eosinophils Absolute Auto 0.4 K/mm3 (0-0.3); Eosinophils Percent Auto 7.4 % (0-4.4); Hematocrit 44.1 % (42.0-52.0); Hemoglobin 14.8 g/dL (14.0-18.0); Immature Granulocyte Absolute 0.02 K/mm3 (0.00-0.031); Immature Granulocyte Percent A 0.4 % (0-0.5); Lymphocytes Absolute Auto 1.53 K/mm3 (0.9-3.2); Lymphocytes Percent Auto 30.8 % (18.3-44.2); Mean Corpuscular HGB Conc 33.6 g/dl (32-36); Mean Corpuscular Hemoglobin 30.3 pg (26-34); Mean Corpuscular Volume 90.4 fl (80-100); Mean Platelet Volume 10.4 fl (7.4-10.4); Monocytes Absolute Auto 0.6 K/mm3 (0.1-0.6); Monocytes Percent Auto 11.5 % (2.6-8.5); Neutrophils Absolute Auto 2.4 K/mm3 (1.3-6.7); Neutrophils Percent Auto 49.1 % (45.5-73.1); Platelet Count Result 220 k/mm3 (150-375); Red Blood Count 4.88 M/mm3 (4.6-6.20); Red Cell Distribution Width 13.1 % (11.5-14.5)
== END 2024-09-28 10:57 | disposition home or self-care (01) ==
LOC: ANHGOSHLAB 10:57
PROVIDERS: PCP Internal Medicine; Visit Provider Internal Medicine
DX: R11.0 Nausea (principal); R53.83 Other fatigue; Z79.899 Other long term (current) drug therapy
CPT/HCPCS: 36415; 80175; 84443; 85025

== ENCOUNTER 2024-12-19 10:50 | Outpatient (CLI) | payer OTHER, SELFPAY ==
--- OUTSIDE RECORDS SUMMARY | 2024-12-19 12:55 | XMS_ITS | Patient Health Record ---
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 stable mood and anxiety. Neurological symptoms Assessment: Patient reports worsening neurological problems, including episodes of blacking out. Recent onset of bradycardia noted, with heart rate as low as 58 bpm. Previous medical workup, including tests and MRIs, has been inconclusive. Patient has an upcoming appointment with neurology at [facility] on December 05 for further evaluation. The slow heart rate may be contributing to increased fatigue and excessive sleep patterns. Plan: - Await neurology consultation at [facility] on December 05 for further evaluation and management of neurological symptoms. - Encourage patient to monitor heart rate and report any significant changes or worsening symptoms. - Continue current exercise regimen, as patient reports feeling better with increased activity. Mood disorder Assessment: Patient reports stable mood with no current depressive symptoms. Current medication regimen appears to be effective in managing mood symptoms. Plan: - Continue lamotrigine - Continue quetiapine - Follow up in one month to reassess mood stability and medication efficacy. Anxiety Assessment: Patient reports stable anxiety symptoms with current medication regimen. Plan: - Continue clonazepam - Pharmacy to dispense additional week's supply to cover extended time away. - Refill sent with one additional refill to ensure continuous medication coverage. Hypersomnia Assessment: Patient reports new onset of excessive sleep, sleeping from 9 PM to 8 AM, followed by an additional 2 hours of sleep during the day. This may be related to the reported bradycardia. Plan: - Monitor sleep patterns and any correlation with heart rate. - Reassess after neurology consultation. the note is transcribed using speech recognition software. It is a reflection of a visit with the patient. It might have some inaccuracy, including medication names and transcribing errors, though efforts have been made to correct them. 11/06/2024 Other Owen, an adult male, is seeking counseling for grief and trauma related to the loss of his son, experiencing nightmares and marital difficulties. Complicated Grief and Trauma Assessment: Owen presents with symptoms consistent with complicated grief and trauma following the loss of his son. He reports feeling silenced since his son's passing, indicating potential difficulty in processing and expressing his emotions. The patient is experiencing intrusive nightmares featuring distressing scenarios involving his son. These symptoms suggest unresolved grief and possible post-traumatic stress. The impact on his marital relationship is evident, with his reportedly blaming him for their son's , further complicating the grieving process and potentially exacerbating his emotional distress. Plan: - Initiate Eye Movement Desensitization and Reprocessing (EMDR) therapy next week to address trauma symptoms. - Explore and process attachment issues from childhood during future sessions to understand their potential impact on current grief and relationships. - Monitor progress of nightmares and intrusive thoughts throughout EMDR treatment. Marital Conflict Assessment: Owen reports significant marital strain following the loss of their son. His 's attribution of blame towards him for their son's indicates a severe breakdown in communication and mutual support within the relationship. This conflict likely compounds Owen's grief and may be hindering his ability to process the loss effectively. Plan: - Consider incorporating couples therapy or family counseling in future treatment planning to address marital conflict and improve communication. - Provide psychoeducation on grief responses and their impact on relationships in subsequent sessions. Cognitive Decline Assessment: Owen has reported concerns about cognitive decline, as evidenced by a scheduled appointment at [facility] for evaluation in December. Plan: - Follow up on results of cognitive evaluation at [facility] after December appointment. - Assess impact of cognitive symptoms on daily functioning and ability to engage in therapy in future sessions. 11/14/2024 Other Basilio Griffiths presents with ongoing episodes of altered consciousness, physical discomfort, and concerns about his heart rate, while reporting improvement in depression and anxiety symptoms. Episodic Altered Consciousness Assessment: Patient reports experiencing episodes of altered consciousness characterized by double vision, difficulty with motor coordination, and subsequent amnesia. These episodes can result in collapse or finding himself in a disoriented state. The etiology remains unclear, with no definitive neurological findings identified thus far. A cardiac component is being considered due to the patient's low heart rate (62 bpm, typically 75-80 bpm). Previous cardiac monitoring during hospitalizations and ambulance rides has not revealed any significant issues. The patient has an upcoming appointment at [facility] on December 05 for further evaluation. Plan: - Await results from upcoming appointment at [facility] (December 05) before making any medication changes - Continue current medications, including metoprolol - Patient to follow up after the [facility] appointment with any new information or test results Physical Discomfort Assessment: Patient reports feeling unwell throughout the day, experiencing nausea and general malaise. There is a possibility that these symptoms may be related to his low heart rate or other underlying conditions. The exact cause of these symptoms is yet to be determined. Plan: - Monitor symptoms - Await further evaluation and test results from upcoming medical appointments Medication Management Assessment: Patient is currently taking metoprolol for heart-related issues and carbamazepine, which may need a refill before the next appointment. Depression and anxiety symptoms are reported to be well-controlled with current medication regimen. Plan: - Continue current medications, including metoprolol and carbamazepine - Refill carbamazepine prescription to ensure adequate supply - Schedule follow-up appointment in approximately one month - Patient instructed to call if medication refills are needed before the next appointment the note is transcribed using speech recognition software. It is a reflection of a visit with the patient. It might have some inaccuracy, including medication names and transcribing errors, though efforts have been made to correct them. 11/14/2024 Nick Weaver is undergoing EMDR therapy, focusing on processing feelings of defectiveness and powerlessness related to childhood memories and the of his son. Feelings of defectiveness and powerlessness Assessment: Owen has been working on the AIP (Adaptive Information Processing) history taking and treatment planning for EMDR (Eye Movement Desensitization and Reprocessing) therapy. The primary clinical theme identified is a feeling of defectiveness, characterized by the belief that something is wrong with me. This core belief has led to secondary feelings of powerlessness. During the session, Owen was able to engage in reprocessing work surrounding the of his son, which appears to be a significant traumatic event. Additionally, he successfully reprocessed childhood memories dating back to a very young age, suggesting early-life experiences may have contributed to his current psychological distress. Plan: - Continue EMDR therapy sessions focusing on the identified clinical theme of defectiveness - Proceed with reprocessing childhood memories, starting from early age experiences - Further explore and process emotions surrounding the of Owen's son - Monitor progress in reducing feelings of defectiveness and powerlessness - Assess for any emerging themes or memories during future EMDR sessions Owen is undergoing EMDR therapy, focusing on processing feelings of defectiveness and powerlessness related to childhood memories and the of his son. Feelings of defectiveness and powerlessness Assessment: Owen has been working on the AIP (Adaptive Information Processing) history taking and treatment planning for EMDR (Eye Movement Desensitization and Reprocessing) therapy. The primary clinical theme identified is a feeling of defectiveness, characterized by the belief that something is wrong with me. This core belief has led to secondary feelings of powerlessness. During the session, Owen was able to engage in reprocessing work surrounding the of his son, which appears to be a significant traumatic event. Additionally, he successfully reprocessed childhood memories dating back to a very young age, suggesting early-life experiences may have contributed to his current psychological distress. Plan: - Continue EMDR therapy sessions focusing on the identified clinical theme of defectiveness - Proceed with reprocessing childhood memories, starting from early age experiences - Further explore and process emotions surrounding the of Owen's son - Monitor progress in reducing feelings of defectiveness and powerlessness - Assess for any emerging themes or memories during future EMDR sessions Plan Of Treatment Future Test Test Name Order Date Cortisol 11/10/2023 Growth Hormone, Serum 11/10/2023 ACTH, Plasma 11/10/2023 IGF-1 11/10/2023 FSH AND LH (7137) 11/10/2023 TSH+FREE T4 (16886) 11/10/2023 COMPREHENSIVE METABOLIC PANEL (06470) CREATININE (375) 11/10/2023 PROLACTIN (746) 11/10/2023 ESTROGENS, TOTAL, IA (439) 11/10/2023 TESTOSTERONE, FREE (92712) 11/10/2023 Next Appt Details Provider Name:Lanre diaz, 01/10/2025 09:45:00 AM, [address], [place] [address], [place], [address], Provider Name:Marcelle Peralta, 01/10/2025 11:00:00 AM, [address], [facility], [place], [address], Provider Name:Lanre diaz, 02/20/2025 02:30:00 PM, [address], [facility] [address], [place], [address], Provider Name:Marcelle Peralta, 02/20/2025 03:00:00 PM, [address], [place] [address], [place], [address], Insurance Providers Payer Name Payer Address Payer Phone Subscriber Number Group Number Insured Name Patient Relationship to Insured Coverage Start Date Coverage End Date [employer] Medicare Replacement/ Advantage - Hmo [address] [place]SE [place]ANCISCO KEEN [phone] [id number] BASILIO GRIFFITHS Self - patient is the insured Medical (General) History Medical History History ICD Code Problems: Generalized anxiety disorder Long-term current use of drug therapy Mild recurrent major depression Panic disorder Restlessness Severe recurrent major depression withou t psychotic features , Surgical History Surgery Date(Month/Year) Other 04/06/1990
--- OUTSIDE RECORDS SUMMARY | 2024-12-19 12:55 | XMS_ITS | Clinical Summary ---
Author Organization [place] [id number] [place] Address [facility] [place] [address] Care Team Providers Care Mid Level Provider Name Role Phone Dylan Ayala NP Primary Care Provider [phone] Alli Bae DO Unavailable Allergies No known active allergies Medications atorvastatin (LIPITOR) 20 mg tablet Take 1 tablet (20 mg total) by mouth daily 4 Active busPIRone (BUSPAR) 15 mg tablet Take 1 tablet (15 mg total) by mouth 2 (two) times a day 4 Active finasteride (PROSCAR) 5 mg tablet Take 1 tablet (5 mg total) by mouth daily 4 Active ketoconazole (NIZORAL) 2 % shampoo APPLY TO FACE AND SCALP TWICE WEEKLY, LEAVE ON FOR 5 MINUTES BEFORE RINSING 4 Active metoprolol XL (TOPROL-XL) 50 mg extended release tablet Take 1 tablet (50 mg total) by mouth daily 4 Active amitriptyline (ELAVIL) 25 mg tablet Take 1 tablet (25 mg total) by mouth daily Active clonazePAM (KlonoPIN) 1 mg tablet daily 5 Active terbinafine (LamiSIL) 250 mg tablet Take 1 tablet (250 mg total) by mouth daily 5 Active QUEtiapine (SEROquel) 100 mg tablet TAKE 1/2 TABLET BY MOUTH IN THE MORNING AND 3&1/2 TABS IN THE EVENING 5 Active tamsulosin (FLOMAX) 0.4 mg extended release capsule Take 1 capsule (0.4 mg total) by mouth daily 4 12/06/19 25 Discontinu ed(Patient Reported) vibegron 75 mg tablet Take 75 mg by mouth daily 12/06/19 25 Discontinu ed(Patient Reported) QUEtiapine (SEROquel) 50 mg tablet Take 1 tablet (50 mg total) by mouth daily 12/06/19 25 Discontinu ed(Patient Reported) QUEtiapine (SEROquel) 400 mg tabletIndicatio ns:depression Take 1 tablet (400 mg total) by mouth nightly 12/06/19 25 Discontinu ed(Patient Reported) lamoTRIgine (LaMICtal) 25 mg tabletIndicatio ns:patient states he is taking 250 mg in the am and 250 mg in the pm,, Take 10 tablets (250 mg total) by mouth 2 (two) times a day 600 tablet 11 4 12/06/19 25 Discontinu ed(Patient Reported) Active Problems Problem Noted Date Diagnosed Date Episode of shaking 10/10/2023 Hypertension 10/10/2023 Transient loss of consciousness 10/09/2023 Tachycardia, unspecified 08/26/2023 Encounters Date Type Department Care Team Description 12/07/2024 Telephone [facility] Neurodiagnostics [address] [place] [address] Dora Davalos 12/05/2024 1:00 PM CDT Office Visit [facility] Medicine Epilepsy [facility] Advanced Medicine 6th [place] [address] [place] [address] Nael Helm MD PhD Seizure (HCC) (Primary Dx) 12/05/2024 Telephone [facility] Neurodiagnostics [address] [place] [address] Dora Davalos 11/21/2024 Telephone [facility] Medicine Epilepsy [address] [place] [address] Medicine 6th [place] [address] [place] [id number] Nael Helm MD PhD Insurance Verficiation from Last 3 Months Surgical History Surgery Date Site/Laterality Comments CYST REMOVAL 04/05/2023 - 04/04/2024 back LUMBAR DISCECTOMY 04/05/1994 - 04/04/1995 BASAL CELL CARCINOMA EXCISION 04/05/2022 - 04/04/2023 Medical History Medical History Date Comments Anxiety and depression Hypercholesterolemia Family History Medical History Relation Name Comments Ankylosing spondylitis Brother Depression Brother Depression Daughter Hypertension Daughter Alcohol abuse Father Bipolar disorder Father Throat cancer Father Kidney cancer Mother Stroke Mother Valvular heart disease Mother Asthma Sister 1 Depression Sister 1 Breast cancer Sister 2 Depression Sister 2 Depression Sister 3 Rheum arthritis Sister 3 Alcohol abuse Son Rheum arthritis Son Relation Name Status Comments Brother Alive Daughter Alive Father Mother Sister 1 Sister 2 Sister 3 Alive Son Social History Tobacco Use Types Packs/Day Years Used Date Smoking Tobacco: Never Smokeless Tobacco: Never Tobacco Cessation:Counseling Given: Not Answered [facility] Utilities Answer Date Recorded In the past 12 months has e electric, gas, oil, or water company threatened to shut off services in your home? No 10/11/2023 Social Connection and Isolation Panel Answer Date Recorded In a typical week, how many times do you talk on the phone with family, friends, or neighbors? More than three times a week 10/11/2023 How often do you get togethe r with friends or relatives? More than three times a week 10/11/2023 How often do you attend chur ch or mandaeism services? 1 to 4 times per year 10/11/2023 Do you belong to any clubs o r organizations such as samaritan groups, unions, fraternal or athletic groups, or [...] any time in the past 12 m [facility], were you homeless or living in a penitentiary (including now)? No 10/11/2023 Personal Safety Answer [...] Sign Reading Time Taken Comments Blood Pressure 137/84 12/05/2024 11:51 AM CDT Pulse 74 12/05/2024 11:51 AM CDT Temperature 36.7 C (98.1 F) 10/12/2023 7:22 AM CDT Respiratory Rate 18 10/12/2023 7:22 AM CDT Oxygen Saturation 92% 10/12/2023 7:22 AM CDT Inhaled Oxygen Concentration - - Weight 109.2 kg (240 lb 12.8 oz) 2024 11:51 AM CDT Height 188 cm (6' 2.02) 12/05/2024 11: 51 AM CDT Body Mass Index 30.9 12/05/2024 11:51 AM CDT Plan of Treatment Upcoming Encounters Date Type Department Care Team (Late st Contact Info) Description 12/20/2024 8:00 AM CDT Hospital Encounter [facility] ADMIT [address] [place] [address] Basilio Fajardo III, MD [address] [place] [address] Health Maintenance Due Date Last Done Comments Colon Cancer Screening-Colonoscopy 1957 Depression Screening 1957 Hepatitis C Screening 1957 Prostate Cancer Screening-PSA 1957 Hepatitis B Screening 1975 Well Visit 65+ 2022 Fall Risk Assessment 10/11/2024 10/12/2023 Covid-19 Vaccine (5 - 2024-2 6 season) 2024 01/04/2023, 01/04/2023, 02/05/2022, Additional history exists Influenza Vaccine (#1) 2024 , 01/04/2023, 02/05/2022, Additional history exists DTaP/Tdap/Td Vaccine (2 - Td or Tdap) 06/05/2027 06/04/2017 Zoster Vaccine Completed 10/18/2017, 07/15/2017 Pneumococcal vaccine 65+ Completed 06/12/2022 Insurance [facility] Advance Directives For more information, please contact: [phone] * LIMITED - No CPR (Latest Code [...] 11:57 PM 10/10/2023 12:19 AM Care Teams Mid Level Provider Relationship Specialty Start Date End Date Dylan Ayala NP PCP - General Nurse Practitioner 08/26/23 Alli Bae DO Referring Physician Internal Medicine 08/30/24
--- OUTSIDE RECORDS SUMMARY | 2024-12-19 12:55 | XMS_ITS | Encounter Summary ---
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
--- OUTSIDE RECORDS SUMMARY | 2024-12-19 12:55 | XMS_ITS | Clinical Summary ---
Author Organization [facility] [employer] Address [address] [facility] [place] [address] Care Team Providers Care Manager Critical Care Unit Name Role Phone Will Bernal MD Primary Care Provider [phone] Source Comments [facility] [employer],non-owned Affiliates and Associated Physician Practices is amultiple site organization consisting of ambulatory clinics and hospital sitesin [place], [place], [place] and [place]. This disclosure is being madepursuant to the Care Everywhere program and may not contain all information available regarding this patient. Last updated 17.[facility] [employer] Allergies No known active allergies Medications * [...] and heating? Not hard at all 01/10/2024 [facility] - Occupational Stress [...] place to sleep or slept in a alf (including now)? 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 Gender Identity Not on file Sexual Orientation [...] 2007 ZOSTER VACCINE (1 of 2) 2007 DEPRESSION SCREENING 04/05/2024 COVID-19 VACCINE (1 - 2023-2 5 season) 2024 INFLUENZA VACCINE (#1) 2024 01/11/2024 Respiratory Syncytial Virus (RSV) Vaccine Pt: or over 60 yrs (1 - 1-dose 75+ series) 2032 HEPATITIS B VACCINE Aged Out No longe [...] patient's age to complete this topic Insurance [facility] MEDICARE [facility] MEDICARE SELF PAY NO INSURANCE Member Subscriber Plan / Payer (Ef fective for All Dates) Name:Luiza Griffiths Member ID:Not on file Relation to Subscriber:Not on file Name:LUIZA GRIFFITHS Subscriber ID:Not on file (Home) Address: [address] [place] [id number] Payer ID:Not on file Group ID:Not on file Type:Self Pay Address: [place], [place] Advance Directives * Full Code (Latest Code Status on File) Date Activated Date Inactivated Comments 01/10/2024 10:58 AM 01/15/2024 1:21 PM Care Teams Manager Critical Care Unit Relationship Specialty Start Date End Date Will Bernal MD [address] [facility] [address] [place] [address] PCP - General 05/08/22
--- OUTSIDE RECORDS SUMMARY | 2024-12-19 12:55 | XMS_ITS | Encounter Summary ---
Author Organization [facility] Address [address] [place] [address] Phone Care Team Providers Care Table Cover Folder Name Role Phone Dylan Ayala NP Primary Care Provider + [phone] KathiaAlli DO Unavailable Reason for Visit * Reason Onset Date Comments Insurance Verficiation 11/21/2024 Encounter Details Date Type Department Care Team (Late st Contact Info) Description 11/21/2024 Telephone [facility] Medicine Epilepsy [address] [facility] 6th [place] [address] [place] [address] Nael Helm MD PhD [address] [place] [address] Insurance Verficiation Social History Tobacco Use Types Packs/Day Years Used Date Smoking Tobacco: Never Smokeless Tobacco: Never [facility] Utilities Answer Date Recorded In the past 12 months has [employer], gas, oil, or water [employer] threatened to shut off services in your [...] week 10/11/2023 How often do you attend [facility] or gnosticism services? 1 to 4 times per year 10/11/2023 Do you belong to any clubs o r organizations such as voodoo groups, unions, fraternal or athletic groups, or [...] any time in the past 12 m [facility], were you homeless or living in a jail (including now)? No 10/11/2023 Personal Safety Answer [...] on file documented as of this encounter Miscellaneous Notes * Telephone Encounter - Sharonda Antonio CMA - 11/21/2024 2:23 PM CDT Schedulers and Pre-Arrival - Patient left message for return call to verify current insurance. Please contact patient. Sharonda Sahu documented in this encounter Plan of Treatment Upcoming Encounters Date Type Department Care Team (Late st Contact Info) Description 12/20/2024 8:00 AM CDT Hospital Encounter [facility] [address] [place] [address] Basilio Fajardo III, MD [address] [place] [address] documented as of this encounter Visit Diagnoses Not on filedocumented in this encounter Care Teams Table Cover Folder Relationship Specialty Start Date End Date Dylan Ayala NP PCP - General Nurse Practitioner 08/26/23 Alli Bae DO Referring Physician Internal Medicine 08/30/24 documented as of this encounter
[2024-12-19 19:31] LABS: Alanine Aminotransferase 36 U/L (6-50); Aspartate Amino Transferase 35 U/L (17-59)
== END 2024-12-19 10:51 | disposition home or self-care (01) ==
PROVIDERS: PCP Internal Medicine; Visit Provider Podiatrist Foot & Ankle Surgery
DX: B35.1 Tinea unguium (principal)
CPT/HCPCS: 36415; 84450; 84460

== ENCOUNTER 2025-03-26 10:21 | Outpatient (CLI) | payer OTHER, SELFPAY ==
--- OUTSIDE RECORDS SUMMARY | 2025-02-12 02:45 | XMS_ITS ---
Author Organization [facility] Address [address] [place] [address] [address] Care Team Providers Care Java Web Architect Name Role Phone Alli Bae DO Primary Care Provider Cristin Hogan Unavailable [phone] Lanre Berry Unavailable [phone] REASON FOR VISIT 1 month f/u Social History Sex Assigned At : Social History Observation Description Sex Assigned At Male Encounters Encounter Location Date Provider Diagnosis [facility] [address] [address] 02/12/2025 Lanre Berry Plan Of Treatment Next Appt Details Provider Name:Marcelle Peralta, 04/09/2025 03:00:00 PM, [address] [place] [address], [phone], Provider Name:Cristin ceron, 04/24/2025 09:00:00 AM, [address] [place] [address], [phone], Progress Notes * LUIZA GRIFFITHS WDOB:1955 (69 yo M)Acc No.[id number]:02/12/2025 Patient: LUIZA OCONNOR Provider: ASHLEY WEINER :1955 A ge:69 Y S ex:Male Date:02/12/2025 Address:[address] [facility] Pcp:Alli Bae DO Subjective: * Chief Complaints: * 1 month f/u Billing Information: * Procedure Codes: * Electronic signature of ASHLEY Spivey on 03/26/2025 at 11:55 AM VOTING MACHINE REPAIRER Sign off status: Pending * Provider: ASHLEY WEINER Date: 04/14/2024 Generated for Clem bloom/Jolynn/Candesmitting on: 05/27/2024 11:55 AM VOTING MACHINE REPAIRER
--- OUTSIDE RECORDS SUMMARY | 2025-03-19 04:30 | XMS_ITS ---
Author Organization [facility] Work [employer] [facility] Address [address] [place] [address] [address] Care Team Providers Care Car Inspection And Repair Manager Name Role Phone Alli Bae DO Primary Care Provider Cristin Hogan Unavailable [phone] Lanre Berry Unavailable [phone] REASON FOR VISIT 1 month f/u Social History Sex Assigned At : Social History Observation Description Sex Assigned At Male Encounters Encounter Location Date Provider Diagnosis [facility] Social Pulse [address] [address] 03/19/2025 Lanre Berry Plan Of Treatment Next Appt Details Provider Name:Marcelle Peralta, 04/09/2025 03:00:00 PM, [address] [place] [address], [phone], Provider Name:Cristin ceron, 04/24/2025 09:00:00 AM, [address] [place] [address], [phone], Progress Notes * LUIZA GRIFFITHS WDOB:1955 (69 yo M)Acc No.[id number]:03/19/2025 Patient: LUIZA OCONNOR Provider: ASHLEY WEINER :1955 A ge:69 Y S ex:Male Date:03/19/2025 Address:[address] [facility] Pcp:Alli Bae DO Subjective: * Chief Complaints: * 1 month f/u * Electronic signature of ASHLEY Spivey on 03/26/2025 at 11:56 AM ANATOMY AND PHYSIOLOGY INSTRUCTOR Sign off status: Pending * Provider: ASHLEY WEINER Date: 1 05/20/2024 Generated for Clem bloom/Jolynn/eTransmitting on: 05/27/2024 11:56 AM ANATOMY AND PHYSIOLOGY INSTRUCTOR
--- OUTSIDE RECORDS SUMMARY | 2025-03-26 11:56 | XMS_ITS | Clinical Summary ---
Author Organization [facility] [address] Address [facility] [place] [address] Care Team Providers Care Decorator Consultant Name Role Phone KathiaHolaAlliwilder MCCULLOUGH Primary Care Provider [phone] Dylan Ayala OUTPATIENT PROGRAM COORDINATOR Unavailable [phone] Allergies No known active allergies Medications atorvastatin [...] (25 mg total) by mouth daily Active terbinafine (LamiSIL) 250 mg tablet Take 1 tablet (250 mg total) by mouth daily 5 Active QUEtiapine (SEROquel) 100 mg tablet TAKE 1/2 TABLET BY MOUTH IN THE MORNING AND 3&1/2 TABS IN THE EVENING 5 Active lamoTRIgine (LaMICtal) 200 mg tablet Take 1 tablet (200 mg total) by mouth 2 (two) times a day Active lamoTRIgine (LaMICtal) 50 mg tablet,disintegrati ng disintegrating tablet Take 1 tablet (50 mg total) by mouth 2 (two) times a day Active Active Problems Problem Noted Date Diagnosed Date Seizure 12/20/2024 Episode of shaking 10/10/2023 Hypertension 10/10/2023 Transient loss of consciousness 10/09/2023 Tachycardia, unspecified 08/26/2023 Encounters Date Type Department Care Team Description 03/19/2025 9:00 AM PEDIATRIC SPEECH THERAPIST Procedure visit [facility] Medicine Otolaryngology [address] [facility] 11th [place] [address] [place] [address] Sunni Cabrera Au.D. Dizziness and giddiness (Primary Dx) 02/20/2025 3:00 PM PEDIATRIC SPEECH THERAPIST Office Visit [facility] Neuro Sleep [address] [place] [address] Susy Barbosa DNP Snoring (Primary Dx); Obesity (BMI 30-39.9) 01/08/2025 Telephone [facility] Otolaryngology [address] [facility] [address] [place] [address] [place] [address] Margret Chowdhury 01/06/2025 Orders Only [facility] Otolaryngology [address] [facility] [address] [place] [address] [place] [address] Regina Saenz Au.D. Dizziness (Primary Dx) 01/06/2025 Telephone [facility] Otolaryngology [address] [facility] [address] [place] [address] [place] [address] Regina Saenz Au.D. 12/20/2024 7:57 AM CDT - 12/26/2024 3:10 PM CDT Hospital Encounter [facility] [address] [place] [address] Basilio Fajardo III, MD Discharge Disposition: Discharge to home or self care from Last 3 Months Immunizations Immunization Administration Dates Next Due Influenza LAIV (Nasal) 02/15/2011 Influenza, Quad, Adjuvantate d, Intramuscular 01/11/2024,01/04/2023 Influenza, Quadrivalent, Zakiya l Culture-based MDCK, Preservative Free, Antibiotic Free, Intramuscular 02/05/2022,03/07/2021,12/01/2017 Influenza, Trivalent, IM (MDV) 03/01/2015,2012 Influenza, Trivalent, Preser vative Free, Intramuscular 02/28/2015 Pneumococcal Conjugate Pcv20 06/12/2022 Tdap 06/04/2017 ZOSTER Recombinant 10/18/2017,07/15/2017 Surgical History Surgery Date Site/Laterality Comments CYST [...] Tobacco: Never Tobacco Cessation:Counseling Given: Not Answered [facility] Utilities Answer Date Recorded In the past 12 months has e [employer], oil, or water [email or web address] threatened to shut off services in your [...] 10/11/2023 How often do you attend chur or taoism services? 1 to 4 times per year 10/11/2023 Do you belong to any clubs o r organizations such as sabianism groups, unions, fraternal or athletic groups, or [...] any time in the past 12 m [facility], were you homeless or living in a halfway (including now)? No 10/11/2023 Personal Safety Answer Date Recorded Have you ever been in or are you currently in a harmful physical or emotional relationship or is someone making you feel afraid or unsafe? Denies 12/20/2024 Sex and Gender Information Value Date Recorded Sex Assigned at Not on file Legal Sex Male 9:15 AM CDT Gender Identity Not on file Sexual Orientation Not on file Last Filed Vital Signs Vital Sign Reading Time Taken Comments Blood Pressure 136/77 02/20/2025 2:39 PM PEDIATRIC SPEECH THERAPIST Pulse 63 02/20/2025 2:39 PM PEDIATRIC SPEECH THERAPIST Temperature 36.3 C (97.3 F) 02/20/2025 2:39 PM PEDIATRIC SPEECH THERAPIST Respiratory Rate 18 12/26/2024 8:30 AM CDT Oxygen Saturation 97% 02/20/2025 2:39 PM PEDIATRIC SPEECH THERAPIST Inhaled Oxygen Concentration - - Weight 103.6 kg (228 lb 8 oz) 02/20/2025 2:39 P M PEDIATRIC SPEECH THERAPIST Height 188 cm (6' 2) 02/20/2025 2:39 PM PEDIATRIC SPEECH THERAPIST Body Mass Index 29.34 02/20/2025 2:39 PM PEDIATRIC SPEECH THERAPIST Plan of Treatment Health Maintenance Due Date Last Done Comments Colon Cancer Screening-Colonoscopy 1955 Depression Screening 1955 Hepatitis C Screening 1955 Prostate Cancer Screening-PSA 1955 Hepatitis B Screening 1975 Well Visit 65+ 2022 Covid-19 Vaccine (2024-2 6 season) 2024 01/04/2023, 01/04/2023, 02/05/2022, Additional history exists Influenza Vaccine (#1) 2024 , 01/04/2023, 02/05/2022, Additional history exists Fall Risk Assessment 12/26/2025 12/26/2024 DTaP/Tdap/Td Vaccine (2 - Td or Tdap) 06/05/2027 06/04/2017 Zoster Vaccine Completed 10/18/2017, 07/15/2017 Pneumococcal vaccine 65+ Completed 06/12/2022 Insurance [facility] Advance Directives For more information, please contact: [phone] * Full Code (Latest Code Status on File) Date Activated Date Inactivated Comments 12/20/2024 9:40 AM 12/26/2024 8:02 PM * LIMITED - No CPR Date Activated Date Inactivated Comments 10/10/2023 12:19 AM 10/12/2023 4:30 PM Question Answer Comments Provide aggressive medical m anagement before a full cardiopulmonary arrest occurs. Use antibiotics, IV Fluids, and medical treatment unless specifically selected below: No intubation * Full Code Date Activated Date Inactivated Comments 10/09/2023 11:57 PM 10/10/2023 12:19 AM Care Teams Decorator Consultant Relationship Specialty Start Date End Date Alli Bae DO [address] [place] [address] PCP - General Internal Medicine 12/20/24 Dylan Ayala NP [address] [place] [address] Nurse Practitioner Nurse Practitioner 12/20/24
--- OUTSIDE RECORDS SUMMARY | 2025-03-26 11:56 | XMS_ITS | Patient Health Record ---
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 neurologist has suggested gradually reducing psychiatric medications to determine if they are contributing to current symptoms. Plan: - Continue lamotrigine 250 mg twice daily - Continue quetiapine 0.5 tablets in the morning, 3.5 tablets in the evening - Plan to gradually decrease lamotrigine in the future, after allowing time for stabilization - Discontinue clonazepam (already implemented) Transient Hallucinations Assessment: Patient reports experiencing auditory hallucinations (sounds of people talking, engines) during recent hospitalization, accompanied by paranoia and confusion. These symptoms appear to have been transient and are not currently present. Plan: - Monitor for recurrence of hallucinations or psychotic symptoms the note is transcribed using speech recognition software. It is a reflection of a visit with the patient. It might have some inaccuracy, including medication names and transcribing errors, though efforts have been made to correct them. 01/10/2025 Nick Weaver, a male patient with a history of possible seizures, was recently hospitalized for 6 days for brainwave monitoring and is experiencing ongoing neurological symptoms including dizziness, falls, and jolts of electricity through his body. Sleep-Related Psychosis - Assessment: During hospitalization, patient experienced psychotic symptoms when laying his head down, including auditory hallucinations of firetrucks, engines, and parties. Patient emphasizes these experiences were not dreams. This presentation has prompted a referral for a sleep study to further investigate the nature of these symptoms. - Plan: - Attend scheduled sleep study with neurologist on February 20 at 3:00 PM. - Monitor for recurrence of psychotic symptoms, particularly in relation to sleep. Cognitive Deficits - Assessment: Patient reports noticing cognitive deficits. This could be related to the discontinuation of benzodiazepines and Lamictal during hospitalization, or potentially associated with the underlying neurological issues being investigated. - Plan: - Monitor cognitive function and its impact on daily activities. - Reassess cognitive status at follow-up appointments. 02/16/2025 Nick Griffiths presents with orthostatic symptoms including dizziness and nausea upon rising, likely related to medication side effects from metoprolol and quetiapine. Orthostatic hypotension Patient reports dizziness and near-fainting episodes when getting out of bed in the morning, accompanied by nausea. Heart rate has decreased to 58-64 bpm from baseline of 75-80 bpm. Blood pressure remains normal. Symptoms likely related to metoprolol causing bradycardia and hypotension, though quetiapine can also contribute to orthostatic hypotension. Multiple medications share overlapping side effects of dizziness and nausea, complicating the clinical picture. Plan: - Discontinue buspirone to simplify medication regimen and eliminate potential contributing factor - Monitor blood pressure during medication adjustments - Consider future metoprolol reduction pending response to buspirone discontinuation Medication management Patient has successfully reduced quetiapine from 400 mg to 250 mg daily with resolution of unresponsive episodes after reducing evening dose by 50 mg. Currently taking lamotrigine 250 mg daily, quetiapine 250 mg in evening, and buspirone 7.5 mg twice daily (reduced from 15 mg twice daily). Patient experienced withdrawal symptoms when reducing metoprolol but noted improvement in confusion and motor skills. Plan: - Discontinue buspirone given low dose and minimal therapeutic benefit - Continue current lamotrigine and quetiapine dosing - Defer metoprolol adjustment pending response to buspirone discontinuation the note is transcribed using speech recognition software. It is a reflection of a visit with the patient. It might have some inaccuracy, including medication names and transcribing errors, though efforts have been made to correct them. 03/20/2025 Nick Griffiths is being managed for psychiatric conditions with medication adjustments, specifically tapering quetiapine and continuing other psychiatric medications. Quetiapine taper Assessment: Patient completed quetiapine taper to 100 mg on Wednesday and is tolerating the reduction well without significant side effects. Currently stable on current dose and ready for further reduction given good tolerance of previous taper. Plan: - Reduce quetiapine to 50 mg daily (50% decrease from current 100 mg dose) - Patient will break 100 mg tablets in half at home - Plan to discontinue quetiapine after completing this dose reduction Mood and anxiety management Assessment: Patient reports anxiety is doing well. Mood appears stable. Plan: - Continue lamotrigine 250 mg twice daily - Continue BuSpar 7.5 mg twice daily - Continue amitriptyline as prescribed by neurologist Follow up in one month. Patient will be scheduled with new nurse practitioner the note is transcribed using speech recognition software. It is a reflection of a visit with the patient. It might have some inaccuracy, including medication names and transcribing errors, though efforts have been made to correct them. Plan Of Treatment Future Test Test Name Order Date Cortisol 11/10/2023 Growth Hormone, Serum 11/10/2023 ACTH, Plasma 11/10/2023 IGF-1 11/10/2023 FSH AND LH (7137) 11/10/2023 TSH+FREE T4 (78326) 11/10/2023 COMPREHENSIVE METABOLIC PANEL (67870) CREATININE (375) 11/10/2023 PROLACTIN (746) 11/10/2023 ESTROGENS, TOTAL, IA (439) 11/10/2023 TESTOSTERONE, FREE (47004) 11/10/2023 Next Appt Details Provider Name:Marcelle Peralta, 04/09/2025 03:00:00 PM, [address], [place] [address], [place], [address], Provider Name:Cristin ceron, 04/24/2025 09:00:00 AM, [address], [facility] [address], [place], [address], Insurance Providers Payer Name Payer Address Payer Phone Subscriber Number Group Number Insured Name Patient Relationship to Insured Coverage Start Date Coverage End Date [employer] Medicare Replacement/ Advantage - Hmo [address] [place] [phone] [id number] BASILIO GRIFFITHS Self - patient is the insured Medical (General) History Medical History History ICD Code Problems: Generalized anxiety disorder Long-term current use of drug therapy Mild recurrent major depression Panic disorder Restlessness Severe recurrent major depression withou t psychotic features , Surgical History Surgery Date(Month/Year) Other 04/06/1990
--- OUTSIDE RECORDS SUMMARY | 2025-03-26 11:56 | XMS_ITS | Encounter Summary ---
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
--- OUTSIDE RECORDS SUMMARY | 2025-03-26 11:56 | XMS_ITS | Clinical Summary ---
Author Organization [facility] [employer] Address [address] [facility] [place] [address] Care Team Providers Care Medical Pathology Teacher Name Role Phone Will Bernal MD Primary Care Provider [phone] Source Comments [facility] [employer],non-owned Affiliates and Associated Physician Practices is amultiple site organization consisting of ambulatory clinics and hospital sitesin [place], [place], [place] and [place]. This disclosure is being madepursuant to the Care Everywhere program and may not contain all information available regarding this patient. Last updated 17.[facility] [employer] Allergies No known active allergies Medications * [...] and heating? Not hard at all 01/10/2024 [facility] - Occupational Stress [...] place to sleep or slept in a care home (including now)? 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 Gender Identity Not on file Sexual Orientation [...] DEPRESSION SCREENING 04/05/2024 COVID-19 VACCINE (1 - 2024-2 6 season) 2024 INFLUENZA VACCINE (#1) 2024 01/11/2024 [...] patient's age to complete this topic Insurance [facility] MEDICARE [facility] MEDICARE SELF PAY NO INSURANCE Member Subscriber Plan / Payer (Ef fective for All Dates) Name:Luiza Griffiths Member ID:Not on file Relation to Subscriber:Not on file Name:LUIZA GRIFFITHS Subscriber ID:Not on file (Home) Address: [address] [place] [id number] Payer ID:Not on file Group ID:Not on file Type:Self Pay Address: [place], [place] Advance Directives * Full Code (Latest Code Status on File) Date Activated Date Inactivated Comments 01/10/2024 10:58 AM 01/15/2024 1:21 PM Care Teams Medical Pathology Teacher Relationship Specialty Start Date End Date Will Bernal MD [address] [facility] [address] [place] [address] PCP - General 05/08/22
[2025-03-26 14:11] LABS: Alanine Aminotransferase 26 U/L (6-50); Albumin Level 4.4 g/dL (3.5-5.1); Alkaline Phosphatase 164 U/L (38-126); Anion Gap 6 mmol/L (4-12); Aspartate Amino Transferase 36 U/L (17-59); Bilirubin,Total 0.5 mg/dL (0.2-1.3); Blood Urea Nitrogen 12 mg/dL (9-20); Calcium 9.4 mg/dL (8.4-10.2); Carbon Dioxide 30 mmol/L (22-30); Chloride 103 mmol/L (98-107); Cholesterol 152 mg/dL (0-200); Estimated Glomerular Filt Rate > 60; Glucose 112 mg/dL (65-110); HDL Direct 79 mg/dL; Potassium 4.4 mmol/L (3.4-5.0); Sodium 139 mmol/L (137-145); Total Protein 7.4 g/dL (6.3-8.2); Triglycerides 96 mg/dL (<150)
[2025-03-26 14:42] LABS: Hemoglobin A1C 5.2 % (<5.7)
[2025-03-26 14:48] LABS: Prostate Specific Antigen 0.8 ng/mL (< OR = 4.0)
== END 2025-03-26 10:22 | disposition home or self-care (01) ==
LOC: ANHGOSHLAB 10:22
PROVIDERS: PCP Internal Medicine; Visit Provider Internal Medicine
DX: Z79.899 Other long term (current) drug therapy (principal); I10 Essential (primary) hypertension; E78.00 Pure hypercholesterolemia, unspecified; E78.5 Hyperlipidemia, unspecified; Z12.5 Encounter for screening for malignant neoplasm of prostate
CPT/HCPCS: 36415; 80053; 80061; 83036; 84153; G0103